=== PATIENT | male | born 1980 | race Caucasian/White ===

== ENCOUNTER 2017-08-13 11:16 | Emergency (ER) | payer OTHER ==
[~2017-08-13] VITALS: Ht 180.3 cm; Wt 107.0 kg
[~2017-08-13 11:16] MED LIST: Benztropine PO; CLON0.5T PO; DOCU100C15 PO; HALO20TA PO; OLAN10TA PO; PARO30TA2 PO
[2017-08-13 11:40] VITALS: BP 130/67; PULSE 82; RESP 16; TEMP 98.8; O2SAT 95
--- NOTE | 2017-08-13 12:14 | PD ---
HPI Chief Complaint: Psychiatric Symptoms Time Seen by Provider: 12:05 Travel History International Travel<30 days: No Contact w/Intl Traveler<30days: No Traveled to known affect area: No History of Present Illness HPI 37-year-old male presents voluntarily requesting psychiatric evaluation. He reports that for the past few hours she has had passive homicidal thoughts. He reports that he has been upset because his mother moved to [place] a few months ago. He denies any suicidal ideation, auditory or visual hallucination, drug or alcohol use. symptoms are moderate, aggravated by social stressors. No alleviating factors.. According to chart review the patient has a history of schizophrenia. He was admitted psychiatrically on July 24. He has no other complaints at this time. [facility] Past Medical History Asthma: No Anxiety: Yes Depression: No Cancer: No Cardiovascular Problems: No COPD: No Developmental Delay: Yes Diabetes: No Headaches: No Psychiatric: Yes (Schizophrenia) Schizophrenia: Yes Seizures: No Social History Alcohol Use: No Tobacco Use: Yes (3PKS/DAY) Substance Use: No Allergies-Medications (Allergen,Severity, Reaction): Coded Allergies: albuterol (Unverified Allergy, Severe, Hives, 08/13/17) bupropion (Verified Allergy, Intermediate, hives, 08/13/17) Reported Meds & Prescriptions Reported Meds & Active Scripts Active Haloperidol 20 Mg Tab 20 Mg PO 2 PO BID Olanzapine 10 Mg Tab 10 Mg PO HS [Benztropine] 1 MG Tab 2 Mg PO Q12HR 15 Days Paroxetine (Paroxetine HCl) 30 Mg Tab 60 Mg PO DAILY Clonazepam 0.5 Mg Tab 0.5 Mg PO TID Reported Docusate Sodium 100 Mg Cap 100 Mg PO DAILY Review of Systems Except as stated in HPI: all other systems reviewed are Neg Physical Exam Narrative GENERAL: Well-developed well-nourished male no acute distress SKIN: Warm and dry. HEAD: Atraumatic. Normocephalic. EYES: Pupils equal and round. No scleral icterus. No injection or drainage. ENT: No nasal bleeding or discharge. Mucous membranes pink and moist. NECK: Trachea midline. No JVD. CARDIOVASCULAR: Regular rate and rhythm. No murmur appreciated. RESPIRATORY: No accessory muscle use. Clear to auscultation. Breath sounds equal bilaterally. GASTROINTESTINAL: Abdomen soft, non-tender, nondistended. Hepatic and splenic margins not palpable. MUSCULOSKELETAL: No obvious deformities. No clubbing. No cyanosis. No edema. NEUROLOGICAL: Awake and alert. No obvious cranial nerve deficits. Motor grossly within normal limits. Normal speech. PSYCHIATRIC: Appropriate mood and affect; insight and judgment normal. Data Data Last Documented VS Vital Signs Date Time Temp Pulse Resp B/P (MAP) Pulse Ox O2 Delivery O2 Flow Rate FiO2 08/13/17 15:56 77 20 135/75 (95) 96 Room Air 08/13/17 11:40 98.8 Orders Orders Psych Screen (08/13/17 12:11) Drug Screen, Random Urine (08/13/17 12:11) Diet Regular Basic (08/13/17 Lunch) Diet Regular Basic (08/13/17 Dinner) Labs Laboratory Tests Test 08/13/17 14:45 Urine Opiates Screen NEG Urine Barbiturates Screen NEG Urine Amphetamines Screen NEG Urine Benzodiazepines Screen NEG Urine Cocaine Screen NEG Urine Cannabinoids Screen NEG MDM Medical Decision Making Medical Screen Exam Complete: Yes Emergency Medical Condition: Yes Medical Record Reviewed: Yes Differential Diagnosis Adjustment reaction, schizophrenia, schizoaffective disorder, acute psychosis, substance-induced mood disorder Narrative Course Mental health screening discussed with the patient. Psychiatric screen ordered. I reviewed his lab work from early July. CMP was unremarkable, TSH within normal limits, drug screen normal, CBC unremarkable. The patient is medically cleared. Cleared by psychiatry. Diagnosis Primary Impression: Medical clearance for psychiatric admission Jonathan Harden August 13, 2017 12:14
[2017-08-13 15:56] VITALS: BP 135/75; PULSE 77; RESP 20; O2SAT 96
== END 2017-08-13 17:30 | disposition home or self-care (01) ==
LOC: NEPJ 11:16
DX: R45.850 Homicidal ideations (principal); F20.9 Schizophrenia, unspecified; F17.200 Nicotine dependence, unspecified, uncomplicated; Z79.899 Other long term (current) drug therapy
CPT/HCPCS: 80307; 99283

== ENCOUNTER 2017-08-16 14:10 | Emergency (ER) | payer OTHER ==
[~2017-08-16] VITALS: Ht 180.3 cm; Wt 104.0 kg
[2017-08-16 14:32] VITALS: BP 126/80; PULSE 86; RESP 22; TEMP 98.1; O2SAT 96
[2017-08-16 17:42] VITALS: BP 125/66; PULSE 92; RESP 16; TEMP 98.7; O2SAT 97
[2017-08-16] MEDS: HALOPERIDOL 10 MG TAB PO SCH (20:10)
[2017-08-16] MEDS: BENZTROPINE MESYLATE 2 MG TAB PO SCH (20:10)
--- NOTE | 2017-08-16 20:19 | PD ---
HPI Chief Complaint: Suicide Ideation/Attempt Time Seen by Provider: 19:30 Travel History International Travel<30 days: No Contact w/Intl Traveler<30days: No Traveled to known affect area: No History of Present Illness HPI 37-year-old white male with a history of schizophrenia presents on a voluntary basis for psychological evaluation. Patient states that he lives in an [place]. He does not feel comfortable living there. He does not feel safe anymore. He states that he feels he needs a medication adjustment. He reports that he has been compliant with his medications. He denies any alcohol or drugs. He denies any suicidal or homicidal ideation. He states that he feels that he needs to speak to someone. He denies any other medical complaints. He denies any fever chills. No chest pain or shortness of breath. No nausea vomiting. No abdominal pain or urinary symptoms. The patient is requesting a nicotine patch. He states that he smokes 2 packs a day. PFSH Past Medical History AAA: No ADD: No ADHD: No Alzheimer's Disease: No Anemia: No Arthritis: No Asthma: No Atrial Fibrillation: No Autoimmune Disease: No Blood Disorders: No Bipolar Disorder: Yes Anxiety: Yes Depression: No Heart Rhythm Problems: No Cancer: No Cardiomyopathy: No Cardiovascular Problems: No Cerebral Palsy: No High Cholesterol: No Chemotherapy: No Chest Pain: No Congestive Heart Failure: No Cirrhosis: No COPD: No Cerebrovascular Accident: No Coronary Artery Disease: No Cystic Fibrosis: No Dementia: No Developmental Delay: No Diabetes: No Patient Takes Glucophage: No Dialysis: No Diverticulitis: No Deep Vein Thrombosis: No Endocrine: No Fibromyalgia: No Gastrointestinal Disorders: No Genetic Disorder: No GERD: No Glaucoma: No Gout: No Genitourinary: No Headaches: No Hepatitis: No Hiatal Hernia: No Heparin Induced Thrombocytopen: No Herniated Disk: No Hypertension: No Immune Disorder: No Inguinal Hernia: No Implanted Vascular Access Dvce: No Insomnia: No Kidney Stones: No Medical other: No Musculoskeletal: No Neurologic: No Parkinson's Disease: No Psychiatric: No Reproductive: No Respiratory: No Resp. Syncytial Virus (RSV): No Integumentary: No Immunizations Current: No Migraines: No Myocardial Infarction: No Pancreatitis: No Pneumonia: No Radiation Therapy: No Renal Failure: No Schizophrenia: No Seizures: No Shingles: No Sickle Cell Disease: No Sleep Apnea: No Thyroid Disease: No Triglycerides - High: No Ulcer: No Tetanus Vaccination: > 5 Years Influenza Vaccination: Yes Past Surgical History Surgical History: No Previous Surgery AICD: No Arteriovenous Shunt: No Insulin Pump: No Pacemaker: No Family History Family Breast Cancer: No Family Myocardial Infarction: No Family Hypercholesterolemia: No Social History Alcohol Use: No Tobacco Use: Yes Substance Use: No Allergies-Medications (Allergen,Severity, Reaction): Coded Allergies: albuterol (Unverified Allergy, Severe, Hives, 08/13/17) bupropion (Verified Allergy, Intermediate, hives, 08/13/17) Reported Meds & Prescriptions Reported Meds & Active Scripts Active Haloperidol 20 Mg Tab 20 Mg PO 2 PO BID Olanzapine 10 Mg Tab 10 Mg PO HS [Benztropine] 1 MG Tab 2 Mg PO Q12HR 15 Days Paroxetine (Paroxetine HCl) 30 Mg Tab 60 Mg PO DAILY Clonazepam 0.5 Mg Tab 0.5 Mg PO TID Reported Docusate Sodium 100 Mg Cap 100 Mg PO DAILY Review of Systems General / Constitutional: No: Fever Eyes: No: Visual changes HENT: No: Headaches Cardiovascular: No: Chest Pain or Discomfort Respiratory: No: Shortness of Breath Gastrointestinal: No: Abdominal Pain Genitourinary: No: Dysuria Musculoskeletal: No: Pain Skin: No Rash Neurologic: No: Weakness Psychiatric: Positive: Mood Disorder, No: Anxiety, Depression, Suicidal Ideations, Disorder of Thought (Denies any hallucinations.), Substance Abuse, Homicidal Ideation Endocrine: No: Polydipsia Hematologic/Lymphatic: No: Easy Bruising Physical Exam Narrative GENERAL: Well-nourished, well-developed patient. SKIN: Warm and dry. HEAD: Normocephalic and atraumatic. EYES: No scleral icterus. No injection or drainage. ENT: No nasal drainage noted. Mucous membranes pink. Airway patent. NECK: Supple, trachea midline. Moves head freely without obvious discomfort. CARDIOVASCULAR: Regular rate and rhythm without murmurs, gallops, or rubs. RESPIRATORY: Breath sounds equal bilaterally. No accessory muscle use. GASTROINTESTINAL: Abdomen soft, non-tender, nondistended. EXTREMITIES: No cyanosis or edema. BACK: Nontender without obvious deformity. No CVA tenderness. NEURO: Patient is alert and oriented. no sensorimotor deficits. Nonfocal. Normal speech. PSYCH: No delusions. No auditory or visual hallucinations. Data Data Last Documented VS Vital Signs Date Time Temp Pulse Resp B/P (MAP) Pulse Ox O2 Delivery O2 Flow Rate FiO2 08/16/17 17:42 98.7 92 16 125/66 (85) 97 Room Air Orders Orders Diet Regular Basic (08/16/17 Dinner) Olanzapine (Zyprexa) (08/16/17 21:00) Haloperidol (Haldol) (08/16/17 21:00) Benztropine (Cogentin) (08/16/17 21:00) Psych Screen (08/16/17 19:30) MDM Medical Decision Making Medical Screen Exam Complete: Yes Emergency Medical Condition: Yes Medical Record Reviewed: Yes Differential Diagnosis MDM: High Differential diagnoses: Schizophrenia, schizoaffective disorder, bipolar, anxiety, depression, adjustment reaction, mood disorder NOS, ODD, depressive disorder NOS, dementia, dementia with agitation, psychosis NOS, substance induced mood disorder, DMDD, Asperger syndrome, infection,electrolyte abnormality, malingering. Narrative Course Mental health screening discussed with the patient. Psychiatric screen ordered. I reviewed the patient's medical record. He has been here multiple times in the past year. His laboratory testing including CBC, chemistry, tox screen, and EtOH have always been normal. He was just seen in the ER within the last 2- 3 days. I do not believe any laboratory testing is indicated for medical clearance today. Patient denies any suicidal homicidal ideation. Denies any toxic ingestions. Patient merely states that he feels unsafe at his [facility]. He states that he would like a medication adjustment. The patient is medically cleared. This is medical clearance for psychiatric admission Diagnosis Primary Impression: Medical clearance for psychiatric admission Condition: Nile Garcia Aug 16, 2017 20:19
[2017-08-16] MEDS ORDERED: OLANZapine 10 MG TAB PO SCH (21:00)
[2017-08-16 22:16] VITALS: BP 106/51; PULSE 78; RESP 18; TEMP 98.6; O2SAT 96
[2017-08-16] MEDS ORDERED: NICOTINE 21 MG/24 HR PATCH T-DERMAL ONE (23:45)
[2017-08-17 03:09] VITALS: BP 114/82; PULSE 69; RESP 20; TEMP 97.8; O2SAT 98
[2017-08-17 07:00] VITALS: BP 119/57; PULSE 71; RESP 20; TEMP 97.9; O2SAT 94
[2017-08-17] MEDS: HALOPERIDOL 10 MG TAB PO SCH (09:54)
[2017-08-17] MEDS: BENZTROPINE MESYLATE 2 MG TAB PO SCH (09:54)
[2017-08-17 10:00] VITALS: BP 128/86; PULSE 73; RESP 16; TEMP 97.5; O2SAT 96
--- NOTE | 2017-08-17 14:08 | PD ---
History of Present Illness Chief Complaint: Suicide Ideation/Attempt Time Seen by Provider: 13:30 Travel History International Travel<30 Days: No Contact w/Intl Traveler<30days: No Known affected area: No Legal Status Legal Status: Voluntary History of Present Illness: Patient is a 38 y/o male, single, no children who has a history of schizoaffective disorder who presents to the emergency department on a voluntary basis for psychological evaluation. He states , " I don't think my haldol is strong enough." He states he hears voices all the time and they have not changed. He denies any visual hallucinations. He is childlike and states , " I like coming to the ED, I feel safe here." He is currently in [facility]. Chart reviewed and patient discussed with YULI Modi. Patient is in Room 107 eating lunch. He is well kept and friendly. He has a limited fund of knowledge. He is childlike. Easily redirected. He speaks with a normal tone and volume. Gait is steady. He is shy and will avoid eye contact at times. His insight and judgement are good. He denies any suicidal or homicidal ideations. He is cooperative and preoccupied with his Haldol. He was recently seen at [facility] and referred to [facility] for follow up. Facility will be advised that they can arrange for him to go to [facility] or they may follow up with their consulting psychiatric team for adjustment in his medications. He is currently stable and can be transported back to his residence. Dx: Schizoaffective Disorder , schizophrenia type. PFSH Past Medical History AAA: No ADD: No ADHD: No Alzheimer's Disease: No Anemia: No Arthritis: No Asthma: No Atrial Fibrillation: No Autoimmune Disease: No Blood Disorders: No Bipolar Disorder: Yes Anxiety: Yes Depression: No Heart Rhythm Problems: No Cancer: No Cardiomyopathy: No Cardiovascular Problems: No Cerebral Palsy: No High Cholesterol: No Chemotherapy: No Chest Pain: No Congestive Heart Failure: No Cirrhosis: No COPD: No Cerebrovascular Accident: No Coronary Artery Disease: No Cystic Fibrosis: No Dementia: No Developmental Delay: No Diabetes: No Patient Takes Glucophage: No Dialysis: No Diverticulitis: No Deep Vein Thrombosis: No Endocrine: No Fibromyalgia: No Gastrointestinal Disorders: No Genetic Disorder: No GERD: No Glaucoma: No Gout: No Genitourinary: No Headaches: No Hepatitis: No Hiatal Hernia: No Heparin Induced Thrombocytopen: No Herniated Disk: No Hypertension: No Immune Disorder: No Inguinal Hernia: No Implanted Vascular Access Dvce: No Insomnia: No Kidney Stones: No Medical other: No Musculoskeletal: No Neurologic: No Parkinson's Disease: No Psychiatric: No Reproductive: No Respiratory: No Resp. Syncytial Virus (RSV): No Integumentary: No Immunizations Current: No Migraines: No Myocardial Infarction: No Pancreatitis: No Pneumonia: No Radiation Therapy: No Renal Failure: No Schizophrenia: No Seizures: No Shingles: No Sickle Cell Disease: No Sleep Apnea: No Thyroid Disease: No Triglycerides - High: No Ulcer: No Tetanus Vaccination: > 5 Years Influenza Vaccination: Yes Past Surgical History Surgical History: No Previous Surgery AICD: No Arteriovenous Shunt: No Insulin Pump: No Pacemaker: No Psychiatric History Psychiatric History half-way history of schizoaffective disorder, schizophrenia type. Hx Psychiatric Treatment: Schizophrenia, Bipolar disorder, Depression History of Inpatient Treatment: Yes Social History Hx Alcohol Use: No Hx Tobacco Use: Yes Hx Substance Use: No Substance Use Type: Nicotine/Cigarettes Hx of Substance Use Treatment: No Allergies-Medications (Allergen,Severity, Reaction): Coded Allergies: albuterol (Unverified Allergy, Severe, Hives, 08/13/17) bupropion (Verified Allergy, Intermediate, hives, 08/13/17) Reported Meds & Prescriptions Reported Meds & Active Scripts Active Haloperidol 20 Mg Tab 20 Mg PO 2 PO BID Olanzapine 10 Mg Tab 10 Mg PO HS [Benztropine] 1 MG Tab 2 Mg PO Q12HR 15 Days Paroxetine (Paroxetine HCl) 30 Mg Tab 60 Mg PO DAILY Clonazepam 0.5 Mg Tab 0.5 Mg PO TID Reported Docusate Sodium 100 Mg Cap 100 Mg PO DAILY Mental Status Examination Appearance: Appropriate Consciousness: Alert Orientation: x4 Motor Activity: Normal gait Speech: Unremarkable Language: Adequate Fund of Knowledge: Adequate Attention and Concentration: Adequate Memory: Impaired Mood: Appropriate Affect: Euthymic Thought Process & Associations: Other (need direction, childlike ) Thought Content: Hallucinations (continue to hear some voices, but states they do not bother him) Hallucination Type: Auditory Delusion Type: None Suicidal Ideation: No Suicidal Plan: No Suicidal Intention: No Homicidal Ideation: No Homicidal Plan: No Homicidal Intention: No Insight: Adequate Judgment: Adequate [facility] Medical Decision Making Medical Record Reviewed: Yes Assessment/Plan Patient is a 37 y.o male who has been to [facility] in the past. He is here on a voluntary basis to discuss his Haldol. He continues to hear voices but states that they do not bother him. He has no visual hallucinations. He does not seem paranoid or illicit any illusions. He is stable and will be returned to his facility. The facility may take him to [facility] for medication management or they may utilize their psychiatric team to provide him continuous care of his mental illness. Patient is at low risk for self harm or harm of others. He is here today to talk about his Haldol. Orders Orders Diet Regular Basic (08/16/17 Dinner) Olanzapine (Zyprexa) (08/16/17 21:00) Haloperidol (Haldol) (08/16/17 21:00) Benztropine (Cogentin) (08/16/17 21:00) Psych Screen (08/16/17 19:30) Drug Screen, Random Urine (08/16/17 22:14) Nicotine 21 Mg Patch.24 Hr (Habitrol 21 (08/16/17 23:45) Diet Regular Basic (08/17/17 Breakfast) Diet Regular Basic (08/17/17 Lunch) Results Vital Signs Date Time Temp Pulse Resp B/P (MAP) Pulse Ox O2 Delivery O2 Flow Rate FiO2 08/17/17 10:00 97.5 73 16 128/86 (100) 96 Room Air 08/17/17 07:00 97.9 71 20 119/57 (77) 94 Room Air 08/17/17 03:09 97.8 69 20 114/82 (93) 98 Room Air 08/16/17 22:16 98.6 78 18 106/51 (69) 96 Room Air 08/16/17 17:42 98.7 92 16 125/66 (85) 97 Room Air 08/16/17 14:32 98.1 86 22 126/80 (95) 96 Laboratory Tests Test 08/16/17 18:35 Urine Opiates Screen NEG Urine Barbiturates Screen NEG Urine Amphetamines Screen NEG Urine Benzodiazepines Screen NEG Urine Cocaine Screen NEG Urine Cannabinoids Screen NEG Diagnosis Primary Impression: Schizo-affective schizophrenia Disposition: 01 DISCHARGE HOME Condition: Stable Latasha Vora Aug 17, 2017 14:08
--- NOTE | 2017-08-17 14:23 | PD ---
Physical Exam Date Seen by Provider: Aug 17, 2017 Time Seen by Provider: 14:21 Narrative 37-year-old male the presents to the ED for evaluation of voluntary psych eval. Patient was evaluated by previous provider and psychiatric team and deemed to be dischargeable. Patient had blood work that was essentially unremarkable. He is a frequent visitor to the hospital secondary to schizophrenia. Voices no complaints. Patient will be discharged back to his long term. Data Data Last Documented VS Vital Signs Date Time Temp Pulse Resp B/P (MAP) Pulse Ox O2 Delivery O2 Flow Rate FiO2 08/17/17 10:00 97.5 73 16 128/86 (100) 96 Room Air Orders Orders Diet Regular Basic (08/16/17 Dinner) Olanzapine (Zyprexa) (08/16/17 21:00) Haloperidol (Haldol) (08/16/17 21:00) Benztropine (Cogentin) (08/16/17 21:00) Psych Screen (08/16/17 19:30) Drug Screen, Random Urine (08/16/17 22:14) Nicotine 21 Mg Patch.24 Hr (Habitrol 21 (08/16/17 23:45) Diet Regular Basic (08/17/17 Breakfast) Diet Regular Basic (08/17/17 Lunch) Ed Discharge Order (08/17/17 14:20) Labs Laboratory Tests Test 08/16/17 18:35 Urine Opiates Screen NEG Urine Barbiturates Screen NEG Urine Amphetamines Screen NEG Urine Benzodiazepines Screen NEG Urine Cocaine Screen NEG Urine Cannabinoids Screen NEG MDM Medical Record Reviewed: Yes Supervised Visit with MICHELLE: No Differential Diagnosis Depression versus suicidal ideation versus anxiety versus adjustment disorder versus mood disorder versus bipolar disorder versus schizophrenia versus paranoid disorder versus psychosis versus substance abuse versus alcohol abuse versus alcohol induced psychosis versus homicidality addition versus cutting versus personality disorder Narrative Course 7-year-old male the presents to the ED for evaluation of voluntary psych eval. Patient was evaluated by previous provider and psychiatric team and deemed to be dischargeable. Patient had blood work that was essentially unremarkable. He is a frequent visitor to the hospital secondary to schizophrenia. Voices no complaints. Patient will be discharged back to his long term. Follow-up with psychiatrist. See ED if worsening symptoms. Diagnosis Primary Impression: Schizo-affective schizophrenia Patient Instructions: General Instructions Disposition: 01 DISCHARGE HOME Condition: Stable Britton Rangel Aug 17, 2017 14:23
[2017-08-18] MEDS ORDERED: TRAZ1TAB14 PO (00:51)
== END 2017-08-17 16:53 | disposition home or self-care (01) ==
LOC: NEPJ 14:10
DX: F25.9 Schizoaffective disorder, unspecified (principal); F31.9 Bipolar disorder, unspecified; F41.9 Anxiety disorder, unspecified; Z79.899 Other long term (current) drug therapy; Z88.8 Allergy status to other drugs, medicaments and biological substances; Z87.891 Personal history of nicotine dependence; Z72.0 Tobacco use
CPT/HCPCS: 80307; 99283

== ENCOUNTER 2017-08-17 18:24 | Emergency (ER) | payer OTHER ==
[~2017-08-17] VITALS: Ht 180.3 cm; Wt 110.0 kg
[2017-08-17 18:30] VITALS: BP 146/78; PULSE 104; RESP 16; TEMP 99.1; O2SAT 94
--- NOTE | 2017-08-17 19:19 | PD ---
HPI Chief Complaint: Suicide Ideation/Attempt Time Seen by Provider: 18:37 Travel History International Travel<30 days: No Contact w/Intl Traveler<30days: No Traveled to known affect area: No History of Present Illness HPI 37-year-old male presents to the emergency department with complaints of having suicidal thoughts. He was just discharged from our ER psychiatry department today. I was told that he was provided transportation back to his [place]. On my examination the patient he states that "I am upset about medication.". He says he stopped taking it because he is unhappy where he is living. He says he does not feel safe where he is living. He says there is too much arguing and drugs. He reports suicidal ideation. Says he does not have a plan "yet." Denies homicidal ideations. Denies history of suicidal attempts. Says he is having visual and auditory hallucinations. Says "I am seeing bad thoughts." Says the voices are telling him to hurt people. He denies alcohol, drug use, tobacco use. Aggravated by his living situation and feeling unsafe for his living. No known relieving factors. Symptoms are moderate to severe in severity. Duration chronic. Onset unknown. History of schizoaffective disorder. History of asthma. Allergies to albuterol. No primary care provider. His medications are managed by the FACT team. Has no other medical complaints. No other modifying factors or associated signs and symptoms. PFSH Past Medical History AAA: No ADD: No ADHD: No Alzheimer's Disease: No Anemia: No Arthritis: No Asthma: No Atrial Fibrillation: No Autoimmune Disease: No Blood Disorders: No Bipolar Disorder: Yes Anxiety: Yes Depression: No Heart Rhythm Problems: No Cancer: No Cardiomyopathy: No Cardiovascular Problems: No Cerebral Palsy: No High Cholesterol: No Chemotherapy: No Chest Pain: No Congestive Heart Failure: No Cirrhosis: No COPD: No Cerebrovascular Accident: No Coronary Artery Disease: No Cystic Fibrosis: No Dementia: No Developmental Delay: No Diabetes: No Dialysis: No Diminished Hearing: No Diverticulitis: No Deep Vein Thrombosis: No Endocrine: No Fibromyalgia: No Gastrointestinal Disorders: No Genetic Disorder: No GERD: No Glaucoma: No Gout: No Genitourinary: No Headaches: No Hepatitis: No Hiatal Hernia: No Heparin Induced Thrombocytopen: No Herniated Disk: No Hypertension: No Immune Disorder: No Inguinal Hernia: No Implanted Vascular Access Dvce: No Insomnia: No Kidney Stones: No Musculoskeletal: No Neurologic: No Parkinson's Disease: No Psychiatric: Yes (SCHITZOAFFECTIVE D/O) Reproductive: No Respiratory: No Resp. Syncytial Virus (RSV): No Integumentary: No Immunizations Current: No Migraines: No Myocardial Infarction: No Pancreatitis: No Pneumonia: No Radiation Therapy: No Renal Failure: No Schizophrenia: No Seizures: No Shingles: No Sickle Cell Disease: No Sleep Apnea: No Thyroid Disease: No Triglycerides - High: No Ulcer: No Past Surgical History Surgical History: No Previous Surgery AICD: No Arteriovenous Shunt: No Insulin Pump: No Pacemaker: No Family History Family Hypercholesterolemia: No Social History Alcohol Use: No Tobacco Use: Yes (3 PPD) Substance Use: No Allergies-Medications (Allergen,Severity, Reaction): Coded Allergies: albuterol (Unverified Allergy, Severe, Hives, 08/17/17) bupropion (Verified Allergy, Intermediate, hives, 08/17/17) Reported Meds & Prescriptions Reported Meds & Active Scripts Active Haloperidol 20 Mg Tab 20 Mg PO 2 PO BID Olanzapine 10 Mg Tab 10 Mg PO HS [Benztropine] 1 MG Tab 2 Mg PO Q12HR 15 Days Paroxetine (Paroxetine HCl) 30 Mg Tab 60 Mg PO DAILY Clonazepam 0.5 Mg Tab 0.5 Mg PO TID Reported Docusate Sodium 100 Mg Cap 100 Mg PO DAILY Review of Systems Except as stated in HPI: all other systems reviewed are Neg Physical Exam Narrative GENERAL: Well-nourished, well-developed male patient, in no acute distress SKIN: Warm and dry. HEAD: Atraumatic. Normocephalic. EYES: Pupils equal and round. ENT: Mucosa pink and moist. NECK: Supple. Trachea midline. CARDIOVASCULAR: Regular rate and rhythm. No murmur appreciated. RESPIRATORY: No accessory muscle use. Clear to auscultation. Breath sounds equal bilaterally. GASTROINTESTINAL: Abdomen soft, non-tender, nondistended. Hepatic and splenic margins not palpable. Bowel sounds are active 4 quadrants. MUSCULOSKELETAL: No obvious deformities. No clubbing. No cyanosis. No edema. NEUROLOGICAL: Awake and alert. Oriented 3. No obvious cranial nerve deficits. Motor grossly within normal limits. Normal speech. Moves all extremities. 5/5 strength to all extremities. PSYCHIATRIC: No delusional thought processes. No hallucinations. Data Data Last Documented VS Vital Signs Date Time Temp Pulse Resp B/P (MAP) Pulse Ox O2 Delivery O2 Flow Rate FiO2 08/17/17 18:30 99.1 104 16 146/78 (100) 94 Orders Orders Psych Screen (08/17/17 19:19) MDM Medical Decision Making Medical Screen Exam Complete: Yes Emergency Medical Condition: Yes Medical Record Reviewed: Yes Differential Diagnosis Suicidal ideation, malingering, schizoaffective disorder, medical clearance for psychiatric admission Narrative Course Patient presents voluntarily. He was discharged from our ER psychiatry unit today. He presents back having suicidal ideation and saying that he does not feel safe where he is living. He lives in an [place]. Physical examination and vital signs are essentially unremarkable. Patient has no medical complaints to report. Psych screen has been ordered. Diagnosis Primary Impression: Medical clearance for psychiatric admission Condition: Stable Edilma Machuca Aug 17, 2017 19:19
[2017-08-18] MEDS ORDERED: TRAZ1TAB14 PO (00:51)
[2017-08-18] MEDS ORDERED: OLANZapine 10 MG TAB PO ONE (01:00)
[2017-08-18] MEDS ORDERED: clonazePAM 0.5 MG TAB PO ONE ×2 (01:00→09:15)
[2017-08-18] MEDS ORDERED: traZODone HCL 50 MG TAB PO ONE (01:00)
[2017-08-18 07:28] VITALS: BP 137/89; PULSE 94; RESP 17; TEMP 98.9; O2SAT 98
[2017-08-18] MEDS ORDERED: HALOPERIDOL 10 MG TAB PO ONE (09:15)
[2017-08-18] MEDS ORDERED: PARoxetine HCL 20 MG TAB PO ONE (09:15)
--- NOTE | 2017-08-18 12:59 | PD ---
Physical Exam Time Seen by Provider: 12:58 Narrative MUMTAZ Joseph has evaluated patient and cleared the patient for discharge. Data Data Last Documented VS Vital Signs Date Time Temp Pulse Resp B/P (MAP) Pulse Ox O2 Delivery O2 Flow Rate FiO2 08/18/17 07:28 98.9 94 17 137/89 (105) 98 Room Air Orders Orders Psych Screen (08/17/17 19:19) Trazodone (Desyrel) (08/18/17 01:00) Clonazepam (Klonopin) (08/18/17 01:00) Olanzapine (Zyprexa) (08/18/17 01:00) Diet Regular Basic (08/18/17 Breakfast) Clonazepam (Klonopin) (08/18/17 09:15) Haloperidol (Haldol) (08/18/17 09:15) Paroxetine (Paxil) (08/18/17 09:15) Diet Regular Basic (08/18/17 Lunch) Ed Discharge Order (08/18/17 12:59) [facility] Supervised Visit with MICHELLE: No Narrative Course MUMTAZ Joseph has evaluated patient and cleared the patient for discharge. The patient will be provided transportation back to his [facility] and he will follow-up outpatient with his psychiatrist. Patient contracts safety. Denies suicidal or homicidal ideations. Patient will be provided community resource packet to /[facility] for follow-up. Has friends and family for support. Patient was medically cleared by alternate provider prior to psych screening. Patient has been evaluated by psychiatry and and is now cleared for discharge. Diagnosis Primary Impression: Schizo-affective schizophrenia Referrals: [facility] (Out patient) [facility] Primary Care Physician Psychiatrist [place] [facility] Patient Instructions: General Instructions, Schizoaffective Disorder (ED), Schizophrenia (ED) Additional Instruction: Contract safety to your self and others Follow-up with psychiatry Follow-up with primary care provider Follow-up with Musa Birch Return to the emergency department immediately with worsening of symptoms Med/Other Pt SpecificInfo: No Change to Meds, No Meds Exist/No RX given Disposition: 01 DISCHARGE HOME Condition: Stable Edilma Machuca Aug 18, 2017 12:59
--- NOTE | 2017-08-18 13:07 | PD ---
History of Present Illness Chief Complaint: Suicide Ideation/Attempt Time Seen by Provider: 12:20 Travel History International Travel<30 Days: No Contact w/Intl Traveler<30days: No Known affected area: No History of Present Illness: Patient is a 38 y/o male, single, no children who has a history of schizoaffective disorder who presents to the emergency department on a voluntary basis for psychological evaluation. He states , " I don't like living at [facility] and I want a different place to live." Chart reviewed and patient discussed with YULI Haas. Patient is in room D41 watching television. He is childlike and easily re-directed. He has a limited fund of knowledge. He speaks with a normal tone and volume. Gait is steady. He is shy and will avoid eye contact at times. His insight and judgement are good. He denies any suicidal or homicidal ideations. He is cooperative and preoccupied with finding new housing. He was at [facility] yesterday with a similar concern and stating he wanted his Haldol increased. Patient is walking from [facility] to the hospital asking for a new place to live. I explained to patient that he would need to speak to the Client Program Manager at his [facility] for assistance with his concerns about the facility and alternative placement. He agreed and asked to be discharged. Dx: Schizoaffective Disorder , schizophrenia type. PFSH Past Medical History AAA: No ADD: No ADHD: No Alzheimer's Disease: No Anemia: No Arthritis: No Asthma: No Atrial Fibrillation: No Autoimmune Disease: No Blood Disorders: No Bipolar Disorder: Yes Anxiety: Yes Depression: No Heart Rhythm Problems: No Cancer: No Cardiomyopathy: No Cardiovascular Problems: No Cerebral Palsy: No High Cholesterol: No Chemotherapy: No Chest Pain: No Congestive Heart Failure: No Cirrhosis: No COPD: No Cerebrovascular Accident: No Coronary Artery Disease: No Cystic Fibrosis: No Dementia: No Developmental Delay: No Diabetes: No Dialysis: No Diminished Hearing: No Diverticulitis: No Deep Vein Thrombosis: No Endocrine: No Fibromyalgia: No Gastrointestinal Disorders: No Genetic Disorder: No GERD: No Glaucoma: No Gout: No Genitourinary: No Headaches: No Hepatitis: No Hiatal Hernia: No Heparin Induced Thrombocytopen: No Herniated Disk: No Hypertension: No Immune Disorder: No Inguinal Hernia: No Implanted Vascular Access Dvce: No Insomnia: No Kidney Stones: No Musculoskeletal: No Neurologic: No Parkinson's Disease: No Psychiatric: Yes (SCHITZOAFFECTIVE D/O) Reproductive: No Respiratory: No Resp. Syncytial Virus (RSV): No Integumentary: No Immunizations Current: No Migraines: No Myocardial Infarction: No Pancreatitis: No Pneumonia: No Radiation Therapy: No Renal Failure: No Schizophrenia: No Seizures: No Shingles: No Sickle Cell Disease: No Sleep Apnea: No Thyroid Disease: No Triglycerides - High: No Ulcer: No Past Surgical History Surgical History: No Previous Surgery AICD: No Arteriovenous Shunt: No Insulin Pump: No Pacemaker: No Psychiatric History Psychiatric History Under treatment for Schioaffective disorder. Hx Psychiatric Treatment: Schizophrenia, Bipolar disorder, Depression History of Inpatient Treatment: Yes Social History Hx Alcohol Use: No Hx Tobacco Use: Yes (3 PPD) Hx Substance Use: No Substance Use Type: Nicotine/Cigarettes Hx of Substance Use Treatment: No Allergies-Medications (Allergen,Severity, Reaction): Coded Allergies: albuterol (Unverified Allergy, Severe, Hives, 08/17/17) bupropion (Verified Allergy, Intermediate, hives, 08/17/17) Reported Meds & Prescriptions Reported Meds & Active Scripts Active Haloperidol 20 Mg Tab 20 Mg PO 2 PO BID Olanzapine 10 Mg Tab 10 Mg PO HS [Benztropine] 1 MG Tab 2 Mg PO Q12HR 15 Days Paroxetine (Paroxetine HCl) 30 Mg Tab 60 Mg PO DAILY Clonazepam 0.5 Mg Tab 0.5 Mg PO TID Reported Trazodone (Trazodone HCl) 150 Mg Tablet 150 Mg PO HS Docusate Sodium 100 Mg Cap 100 Mg PO DAILY Mental Status Examination Appearance: Appropriate Consciousness: Alert Orientation: Person Motor Activity: Normal gait Speech: Unremarkable Language: Adequate Fund of Knowledge: Adequate (childlike, intellectual disability) Memory: Recent (intact) Mood: Appropriate Affect: Euthymic Thought Process & Associations: Intact Thought Content: Appropriate Hallucination Type: None Delusion Type: None Suicidal Ideation: No Suicidal Plan: No Suicidal Intention: No Homicidal Ideation: No Homicidal Plan: No Homicidal Intention: No Insight: Adequate Judgment: Adequate [facility] Medical Decision Making Medical Record Reviewed: Yes Assessment/Plan Patient is a resident of [facility]. He was here yesterday and returned today asking to be moved into a new facility because he does not like [facility]. He is easily re-directed and agreed to return to [facility] to talk about his concerns about his living situation. Thank you for the consultation. Patient is currently under psychiatric care and is managed by [facility]. He does not meet admission criteria. Orders Orders Psych Screen (08/17/17 19:19) Trazodone (Desyrel) (08/18/17 01:00) Clonazepam (Klonopin) (08/18/17 01:00) Olanzapine (Zyprexa) (08/18/17 01:00) Diet Regular Basic (08/18/17 Breakfast) Clonazepam (Klonopin) (08/18/17 09:15) Haloperidol (Haldol) (08/18/17 09:15) Paroxetine (Paxil) (08/18/17 09:15) Diet Regular Basic (08/18/17 Lunch) Results Vital Signs Date Time Temp Pulse Resp B/P (MAP) Pulse Ox O2 Delivery O2 Flow Rate FiO2 08/18/17 07:28 98.9 94 17 137/89 (105) 98 Room Air 08/17/17 18:30 99.1 104 16 146/78 (100) 94 Diagnosis Primary Impression: Schizo-affective schizophrenia Disposition: 01 DISCHARGE HOME Condition: Stable Diony,Latashabenjy PANDYA Aug 18, 2017 13:07
[2017-08-19] MEDS ORDERED: PARO30TA2 PO (15:10)
[2017-08-19] MEDS ORDERED: ZOLP5TAB3 PO (15:14)
== END 2017-08-18 13:20 | disposition home or self-care (01) ==
LOC: NEPD 18:24
DX: F25.9 Schizoaffective disorder, unspecified (principal); F17.200 Nicotine dependence, unspecified, uncomplicated
CPT/HCPCS: 99283

== ENCOUNTER 2017-08-19 14:45 | Emergency (ER) | payer OTHER ==
[~2017-08-19] VITALS: Ht 180.3 cm; Wt 79.5 kg
[~2017-08-19 14:45] MED LIST changes: +TRAZ1TAB14 PO
[2017-08-19 14:55] VITALS: BP 114/59; PULSE 81; RESP 20; TEMP 98.6; O2SAT 96
[2017-08-19 14:59] VITALS: BP 114/59; PULSE 81; RESP 20; TEMP 98.6; O2SAT 96
[2017-08-19] MEDS ORDERED: PARO30TA2 PO (15:10)
[2017-08-19] MEDS ORDERED: ZOLP5TAB3 PO (15:14)
--- NOTE | 2017-08-19 18:48 | PD ---
HPI Chief Complaint: Psychiatric Symptoms Time Seen by Provider: 18:29 Travel History International Travel<30 days: No Contact w/Intl Traveler<30days: No Traveled to known affect area: No History of Present Illness HPI 37-year-old male presents to the emergency department under [place] act. Patient has been seen here multiple times in the past few days and is well-known to the emergency department and psychiatric unit. 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 Upon contacted by phone he stated that he has a mental disorder and he feels like harming himself and wanted to get help. Phong hurley has a history of mental illness and has been [place] acted in the past." He was just discharged from our ER psychiatry department 2 days ago. I saw this patient the last time he was here. Patient states he is unhappy where he is living. He does not feel safe there. He reports feeling suicidal and does not have a plan. Denies homicidal ideations. Denies history of suicidal attempts. Says he is having visual and auditory hallucinations. He denies alcohol, drug use, tobacco use. Aggravated by his living situation and feeling unsafe for his living. No known relieving factors. Symptoms are moderate to severe in severity. Duration chronic. Onset unknown. History of schizoaffective disorder. History of asthma. Allergies to albuterol. No primary care provider. His medications are managed by the FACT team. Has no other medical complaints. No other modifying factors or associated signs and symptoms. PFSH Past Medical History Hx Anticoagulant Therapy: No AAA: No ADD: No ADHD: No Alzheimer's Disease: No Anemia: No Arthritis: No Asthma: No Atrial Fibrillation: No Autoimmune Disease: No Blood Disorders: No Bipolar Disorder: Yes Anxiety: Yes Depression: No Heart Rhythm Problems: No Cancer: No Cardiomyopathy: No Cardiovascular Problems: No Cerebral Palsy: No High Cholesterol: No Chemotherapy: No Chest Pain: No Congestive Heart Failure: No Cirrhosis: No COPD: No Cerebrovascular Accident: No Coronary Artery Disease: No Cystic Fibrosis: No Dementia: No Developmental Delay: No Diabetes: No Dialysis: No Diminished Hearing: No Diverticulitis: No Deep Vein Thrombosis: No Endocrine: No Fibromyalgia: No Gastrointestinal Disorders: No Genetic Disorder: No GERD: No Glaucoma: No Gout: No Genitourinary: No Headaches: No Hepatitis: No Hiatal Hernia: No Heparin Induced Thrombocytopen: No Herniated Disk: No Hypertension: No Immune Disorder: No Inguinal Hernia: No Implanted Vascular Access Dvce: No Insomnia: No Kidney Stones: No Musculoskeletal: No Neurologic: No Parkinson's Disease: No Psychiatric: Yes (SCHITZOAFFECTIVE D/O) Reproductive: No Respiratory: No Resp. Syncytial Virus (RSV): No Integumentary: No Immunizations Current: No Migraines: No Myocardial Infarction: No Pancreatitis: No Pneumonia: No Radiation Therapy: No Renal Failure: No Schizophrenia: No Seizures: No Shingles: No Sickle Cell Disease: No Sleep Apnea: No Thyroid Disease: No Triglycerides - High: No Ulcer: No ?: Not Past Surgical History AICD: No Arteriovenous Shunt: No Hysterectomy: No Insulin Pump: No Pacemaker: No Family History Family Hypercholesterolemia: No Social History Alcohol Use: No Tobacco Use: Yes (3 PPD) Substance Use: No Allergies-Medications (Allergen,Severity, Reaction): Coded Allergies: albuterol (Unverified Allergy, Severe, Hives, 08/17/17) bupropion (Verified Allergy, Intermediate, hives, 08/17/17) Reported Meds & Prescriptions Reported Meds & Active Scripts Active Haloperidol 20 Mg Tab 20 Mg PO 2 PO BID Olanzapine 10 Mg Tab 10 Mg PO HS [Benztropine] 1 MG Tab 2 Mg PO Q12HR 15 Days Clonazepam 0.5 Mg Tab 0.5 Mg PO TID Reported Zolpidem (Zolpidem Tartrate) 5 Mg Tab 5 Mg PO HS PRN Paroxetine (Paroxetine HCl) 30 Mg Tab 30 Mg PO DAILY Docusate Sodium 100 Mg Cap 100 Mg PO DAILY Review of Systems Except as stated in HPI: all other systems reviewed are Neg Physical Exam Narrative GENERAL: Well-nourished, well-developed patient, in no acute distress SKIN: Warm and dry. HEAD: Atraumatic. Normocephalic. EYES: Pupils equal and round. ENT: Mucosa pink and moist. NECK: Supple. Trachea midline. CARDIOVASCULAR: Regular rate and rhythm. No murmur appreciated. RESPIRATORY: No accessory muscle use. Clear to auscultation. Breath sounds equal bilaterally. GASTROINTESTINAL: Abdomen soft, non-tender, nondistended. Hepatic and splenic margins not palpable. Bowel sounds are active 4 quadrants. MUSCULOSKELETAL: No obvious deformities. No clubbing. No cyanosis. No edema. NEUROLOGICAL: Awake and alert. Oriented 3. No obvious cranial nerve deficits. Motor grossly within normal limits. Normal speech. Moves all extremities. 5/5 strength to all extremities. PSYCHIATRIC: No delusional thought processes. No hallucinations. Data Data Last Documented VS Vital Signs Date Time Temp Pulse Resp B/P (MAP) Pulse Ox O2 Delivery O2 Flow Rate FiO2 08/19/17 14:59 98.6 81 20 114/59 (77) 96 Room Air Orders Orders Diet Regular Basic (08/19/17 Dinner) Complete Blood Count With Diff (08/19/17 17:38) Comprehensive Metabolic Panel (08/19/17 17:38) Thyroid Stimulating Hormone (08/19/17 17:38) Psych Screen (08/19/17 17:38) Drug Screen, Random Urine (08/19/17 17:38) Alcohol (Ethanol) (08/19/17 17:38) Salicylates (Aspirin) (08/19/17 17:38) Tylenol (Acetaminophen) (08/19/17 17:38) MDM Medical Decision Making Medical Screen Exam Complete: Yes Emergency Medical Condition: Yes Medical Record Reviewed: Yes Differential Diagnosis Medical clearance for psychiatric admission, schizoaffective disorder, schizophrenia, paranoia Narrative Course Patient presents under a Ureña act. Physical examination and vital signs are essentially unremarkable. Patient has no medical complaints to report. Psych screen has been ordered. If the laboratory results are unremarkable, the patient will be medically cleared for psychiatric evaluation and disposition. Diagnosis Primary Impression: Medical clearance for psychiatric admission Condition: Stable Edilma Machuca Aug 19, 2017 18:48
[2017-08-19 18:58] LABS: AUTOMATED NEUTROPHIL # 3.3 TH/MM3 (1.8-7.7); BASOPHIL # 0.1 TH/MM3 (0-0.2); BASOPHIL % 0.9 % (0.0-2.0); EOSINOPHIL # 0.2 TH/MM3 (0-0.4); EOSINOPHIL % 3.1 % (0.0-4.0); HEMATOCRIT 43.4 % (39.0-51.0); HEMOGLOBIN 15.2 GM/DL (13.0-17.0); LYMPH % 38.5 % (9.0-44.0); LYMPHOCYTE # 2.4 TH/MM3 (1.0-4.8); MEAN CELL VOLUME 88.6 FL (80.0-100.0); MEAN PLATELET VOLUME 6.8 FL (7.0-11.0); MONO % 5.9 % (0.0-8.0); MONOCYTE # 0.4 TH/MM3 (0-0.9); NEUT % 51.6 % (16.0-70.0); PLATELET COUNT 239 TH/MM3 (150-450); RED CELL DISTRIBUTION WIDTH 13.3 % (11.6-17.2); WHITE BLOOD COUNT 6.3 TH/MM3 (4.0-11.0)
[2017-08-19 19:29] LABS: ALBUMIN 4.2 GM/DL (3.4-5.0); ALT (GPT) 37 U/L (12-78); AST (GOT) 22 U/L (15-37); BICARBONATE 26.1 MEQ/L (21.0-32.0); BLOOD UREA NITROGEN 9 MG/DL (7-18); CALCIUM 8.8 MG/DL (8.5-10.1); CHLORIDE 101 MEQ/L (98-107); CREATININE 0.62 MG/DL (0.60-1.30); GLOMERULAR FILTRATION RATE 148 ML/MIN (>89); GLUCOSE,RANDOM 70 MG/DL (74-106); SODIUM (NA) 137 MEQ/L (136-145)
[2017-08-19 19:40] LABS: ALKALINE PHOSPHATASE 91 U/L (45-117); TOTAL BILIRUBIN ADULT 0.3 MG/DL (0.2-1.0); TOTAL PROTEIN 7.5 GM/DL (6.4-8.2)
[2017-08-19 19:43] LABS: ACETAMINOPHEN LESS THAN 2.0 MCG/ML (10.0-30.0)
[2017-08-20 06:01] VITALS: BP 98/53; PULSE 72; RESP 18; O2SAT 96
--- NOTE | 2017-08-20 10:53 | PD ---
Physical Exam Date Seen by Provider: Aug 20, 2017 Time Seen by Provider: 10:51 Narrative For full history and physical examination please see previous providers note. Data Data Last Documented VS Vital Signs Date Time Temp Pulse Resp B/P (MAP) Pulse Ox O2 Delivery O2 Flow Rate FiO2 08/20/17 06:01 72 18 98/53 (68) 96 Room Air 08/19/17 14:59 98.6 Orders Orders Diet Regular Basic (08/19/17 Dinner) Complete Blood Count With Diff (08/19/17 17:38) Comprehensive Metabolic Panel (08/19/17 17:38) Thyroid Stimulating Hormone (08/19/17 17:38) Psych Screen (08/19/17 17:38) Drug Screen, Random Urine (08/19/17 17:38) Alcohol (Ethanol) (08/19/17 17:38) Salicylates (Aspirin) (08/19/17 17:38) Tylenol (Acetaminophen) (08/19/17 17:38) Diet Regular Basic (08/20/17 Breakfast) Ed Discharge Order (08/20/17 10:50) Labs Laboratory Tests Test 08/19/17 15:02 08/19/17 15:03 White Blood Count 6.3 TH/MM3 Red Blood Count 4.90 MIL/MM3 Hemoglobin 15.2 GM/DL Hematocrit 43.4 % Mean Corpuscular Volume 88.6 FL Mean Corpuscular Hemoglobin 31.0 PG Mean Corpuscular Hemoglobin Concent 35.0 % Red Cell Distribution Width 13.3 % Platelet Count 239 TH/MM3 Mean Platelet Volume 6.8 FL Neutrophils (%) (Auto) 51.6 % Lymphocytes (%) (Auto) 38.5 % Monocytes (%) (Auto) 5.9 % Eosinophils (%) (Auto) 3.1 % Basophils (%) (Auto) 0.9 % Neutrophils # (Auto) 3.3 TH/MM3 Lymphocytes # (Auto) 2.4 TH/MM3 Monocytes # (Auto) 0.4 TH/MM3 Eosinophils # (Auto) 0.2 TH/MM3 Basophils # (Auto) 0.1 TH/MM3 CBC Comment DIFF FINAL Differential Comment Blood Urea Nitrogen 9 MG/DL Creatinine 0.62 MG/DL Random Glucose 70 MG/DL Total Protein 7.5 GM/DL Albumin 4.2 GM/DL Calcium Level 8.8 MG/DL Alkaline Phosphatase 91 U/L Aspartate Amino Transf (AST/SGOT) 22 U/L Alanine Aminotransferase (ALT/SGPT) 37 U/L Total Bilirubin 0.3 MG/DL Sodium Level 137 MEQ/L Potassium Level 3.5 MEQ/L Chloride Level 101 MEQ/L Carbon Dioxide Level 26.1 MEQ/L Anion Gap 10 MEQ/L Estimat Glomerular Filtration Rate 148 ML/MIN Thyroid Stimulating Hormone 3rd Gen 1.030 uIU/ML Salicylates Level 3.8 MG/DL Acetaminophen Level LESS THAN 2.0 MCG/ML Ethyl Alcohol Level LESS THAN 3 MG/DL Urine Opiates Screen NEG Urine Barbiturates Screen NEG Urine Amphetamines Screen NEG Urine Benzodiazepines Screen NEG Urine Cocaine Screen NEG Urine Cannabinoids Screen NEG MDM Medical Record Reviewed: Yes Supervised Visit with MICHELLE: No Narrative Course For full H&P please see previous providers note. Patient was seen and evaluated emergency department, medically cleared. He was then seen by psychiatry. Patient will be transferred to [facility] for further rehabilitation. Diagnosis Primary Impression: Bipolar disorder Qualified Codes: F31.9 - Bipolar disorder, unspecified Referrals: [facility] Behavioral Disposition: 67 DISC TO PSYCH CARE FACILITY Condition: Stable Isamar Levin [facility] Aug 20, 2017 10:53
== END 2017-08-20 11:31 ==
LOC: NEPJ 14:45
DX: F31.9 Bipolar disorder, unspecified (principal); F25.9 Schizoaffective disorder, unspecified; F17.200 Nicotine dependence, unspecified, uncomplicated; Z79.899 Other long term (current) drug therapy
CPT/HCPCS: 80053; 80307; 84443; 85025; 99285

== ENCOUNTER 2017-08-20 12:44 | Emergency (ER) | payer OTHER ==
[~2017-08-20 12:44] MED LIST changes: -TRAZ1TAB14 PO; +ZOLP5TAB3 PO
[2017-08-20 13:05] VITALS: BP 150/69; PULSE 80; RESP 20; TEMP 98.2; O2SAT 96
--- NOTE | 2017-08-20 13:28 | PD ---
History of Present Illness Chief Complaint: Psychiatry/BA Time Seen by Provider: 13:20 Travel History International Travel<30 Days: No Contact w/Intl Traveler<30days: No Known affected area: No Legal Status Legal Status: Ureña Act Ureña Act Signed By: Araceli Paredes History of Present Illness: History of Present Illness HPI 37-year-old, single, ,male, known to psychiatry service due to multiple ED visits, history of schizophrenia, presents to the emergency department under Ureña act initiated by law enforcement. According to the Ureña act report "the assisted living facility where patient lives called on this date stating the patient had been making suicidal and homicidal statements. Upon contacted by phone he stated that he has a mental disorder and he feels like harming himself and wanted to get help. Patient has been seen multiple times that the ED since he was discharged from 4 year long hospitalization at the [facility]. The patient is receiving services from the FACT team and has an established treatment plan for when he is not feeling safe. The patient has not been following his treatment plan which is to call different staff members before he comes to the hospital. The patient is seen with Timur it risk and assurance manager. He is alert, oriented, calm, cooperative. He states that he was not feeling safe at his [facility] and that he does not like it there. He is now stating that he feels safe and that he wants to be discharge. The patient does not endorse any suicidal or homicidal ideation, intent or plan. He has met with his [facility] lining caser and she is awaiting to bring him back to his [facility]. I find no reason at this time to keep him here under the Ureña act. PFSH Past Medical History Hx Anticoagulant Therapy: No AAA: No ADD: No ADHD: No Alzheimer's Disease: No Anemia: No Arthritis: No Asthma: No Atrial Fibrillation: No Autoimmune Disease: No Blood Disorders: No Bipolar Disorder: Yes Anxiety: Yes Depression: No Heart Rhythm Problems: No Cancer: No Cardiomyopathy: No Cardiovascular Problems: No Cerebral Palsy: No High Cholesterol: No Chemotherapy: No Chest Pain: No Congestive Heart Failure: No Cirrhosis: No COPD: No Cerebrovascular Accident: No Coronary Artery Disease: No Cystic Fibrosis: No Dementia: No Developmental Delay: No Diabetes: No Dialysis: No Diminished Hearing: No Diverticulitis: No Deep Vein Thrombosis: No Endocrine: No Fibromyalgia: No Gastrointestinal Disorders: No Genetic Disorder: No GERD: No Glaucoma: No Gout: No Genitourinary: No Headaches: No Hepatitis: No Hiatal Hernia: No Heparin Induced Thrombocytopen: No Herniated Disk: No Hypertension: No Immune Disorder: No Inguinal Hernia: No Implanted Vascular Access Dvce: No Insomnia: No Kidney Stones: No Musculoskeletal: No Neurologic: No Parkinson's Disease: No Psychiatric: Yes (SCHITZOAFFECTIVE D/O) Reproductive: No Respiratory: No Resp. Syncytial Virus (RSV): No Integumentary: No Immunizations Current: No Migraines: No Myocardial Infarction: No Pancreatitis: No Pneumonia: No Radiation Therapy: No Renal Failure: No Schizophrenia: No Seizures: No Shingles: No Sickle Cell Disease: No Sleep Apnea: No Thyroid Disease: No Triglycerides - High: No Ulcer: No Past Surgical History AICD: No Arteriovenous Shunt: No Hysterectomy: No Insulin Pump: No Pacemaker: No Psychiatric History Psychiatric History Hx Psychiatric Treatment: Extensive psychiatric history with state hospital [facility]. His last admission to [facility] was a few months ago. History of Inpatient Treatment: Yes Guns or firearms in home: No Social History Single, never , on disability. Resident of [facility]. Hx Alcohol Use: No Hx Tobacco Use: Yes (3 PPD) Hx Substance Use: No Substance Use Type: Nicotine/Cigarettes Hx of Substance Use Treatment: No Family Psychiatric History Unknown Allergies-Medications (Allergen,Severity, Reaction): Coded Allergies: albuterol (Unverified Allergy, Severe, Hives, 08/17/17) bupropion (Verified Allergy, Intermediate, hives, 08/17/17) Reported Meds & Prescriptions Reported Meds & Active Scripts Active Haloperidol 20 Mg Tab 20 Mg PO 2 PO BID Olanzapine 10 Mg Tab 10 Mg PO HS [Benztropine] 1 MG Tab 2 Mg PO Q12HR 15 Days Clonazepam 0.5 Mg Tab 0.5 Mg PO TID Reported Zolpidem (Zolpidem Tartrate) 5 Mg Tab 5 Mg PO HS PRN Paroxetine (Paroxetine HCl) 30 Mg Tab 30 Mg PO DAILY Docusate Sodium 100 Mg Cap 100 Mg PO DAILY Review of Systems Psychiatric: COMPLAINS OF: Anxiety Except as stated in HPI: all other systems reviewed are Neg Mental Status Examination Appearance: Appropriate Consciousness: Alert Orientation: x4 Motor Activity: Normal gait Speech: Unremarkable Language: Adequate Fund of Knowledge: Inadequate (Appears to be below average intellectual functioning) Attention and Concentration: Adequate Memory: Unremarkable Mood: Anxious Affect: Appropriate Thought Process & Associations: Intact, Logical, Goal directed Thought Content: Appropriate Hallucination Type: None Delusion Type: None Suicidal Ideation: No Suicidal Plan: No Suicidal Intention: No Homicidal Ideation: No Homicidal Plan: No Homicidal Intention: No Insight: Poor Judgment: Impulsive MDM Medical Decision Making Medical Record Reviewed: Yes Assessment/Plan 37-year-old, single, ,male, known to psychiatry service due to multiple ED visits, history of schizophrenia, presents to the emergency department under Ureña act initiated by law enforcement. According to the Ureña act report "the assisted living facility where patient lives called on this date stating the patient had been making suicidal and homicidal statements. Upon contacted by phone he stated that he has a mental disorder and he feels like harming himself and wanted to get help. Patient has met with his lining caser from [facility]. Patient is denying any suicidal or homicidal ideation, intent or plan. He tells us that he came to the hospital because he was feeling stressed and feeling unsafe. The patient is encouraged to utilize his support system in the community. We have reviewed the protocol in place for him for when he is feeling unsafe. The Ureña act as lifted. Psychiatrically clear for discharge from the ED. Diagnosis Primary Impression: Paranoid type schizophrenia, chronic state Psychiatrically Cleared: Yes Disposition: 01 DISCHARGE HOME Condition: Stable Florence Baker Aug 20, 2017 13:28
--- NOTE | 2017-08-20 14:13 | PD ---
Physical Exam Date Seen by Provider: Aug 20, 2017 Time Seen by Provider: 14:12 Narrative For full history and physical examination please see previous reports from earlier today. Patient was supposed to be transferred to [facility] however there was no bed available but he already been removed from the computer , he was never out of the care of [employer] employees. Patient's environmental studies professor from [facility] is waiting for him. Data Data Last Documented VS Vital Signs Date Time Temp Pulse Resp B/P (MAP) Pulse Ox O2 Delivery O2 Flow Rate FiO2 08/20/17 13:05 98.2 80 20 150/69 (96) 96 Orders Orders Ed Discharge Order (08/20/17 14:11) [facility] Medical Record Reviewed: Yes Supervised Visit with MICHELLE: No Narrative Course Patient will be released to estimate environmental studies professor, he had been previously seen, evaluated emergency department and medically cleared, he has also been seen and evaluated by the psychiatric nurse practitioner, Niranjan act was lifted. Please see her documentation. Patient will be discharged to caseworkers custody at this time. Diagnosis Primary Impression: Paranoid type schizophrenia, chronic state Referrals: [facility] Patient Instructions: General Instructions Additional Instruction: Follow-up with psychiatrist, follow-up at [facility] Return to emergency department for any new worsening symptoms Med/Other Pt SpecificInfo: No Change to Meds Disposition: 01 DISCHARGE HOME Condition: Stable Isamar Levin Aug 20, 2017 14:13
== END 2017-08-20 14:36 | disposition home or self-care (01) ==
LOC: NEPJ 12:44
DX: F20.0 Paranoid schizophrenia (principal); F31.9 Bipolar disorder, unspecified; F41.9 Anxiety disorder, unspecified; F17.210 Nicotine dependence, cigarettes, uncomplicated
CPT/HCPCS: 99283

== ENCOUNTER 2017-08-26 23:51 | Inpatient (IN) | payer OTHER ==
[~2017-08-26] VITALS: Ht 180.3 cm; Wt 94.6 kg
[2017-08-26 23:57] VITALS: BP 109/65; PULSE 90; RESP 12; TEMP 98.6
--- NOTE | 2017-08-27 00:28 | PD ---
HPI Chief Complaint: Psychiatric Symptoms Time Seen by Provider: 00:21 Travel History International Travel<30 days: No Contact w/Intl Traveler<30days: No Traveled to known affect area: No History of Present Illness HPI 37-year-old white male presents emergency department under Ureña act by . Patient had contacted PD stating that he suffers from schizophrenia and has been off his medications now for the past week and a half. He had come to [place] on a Greyhound from [place]. He states that he had intended to stay with his sister and [id number].. The patient allegedly left [place] without his medications. He is currently homeless on the streets. He states that he knows that he needs to get back on his medications. He denies any active suicidal or homicidal ideation. The patient is unsure of his medication list. He denies any toxic ingestions. He denies any acute medical complaints. PFS Past Medical History Narrative Medical Anxiety, depression, bipolar, schizophrenia. Denies any history of TBI, cerebral palsy or developmental delay. Reports graduating from high school. Hx Anticoagulant Therapy: No Asthma: Yes Depression: Yes Cardiovascular Problems: No Chemotherapy: No Cerebrovascular Accident: No Diabetes: No Respiratory: No Schizophrenia: Yes Tetanus Vaccination: Unknown Past Surgical History Surgical History: No Previous Surgery Social History Alcohol Use: No Tobacco Use: Yes Substance Use: No Allergies-Medications (Allergen,Severity, Reaction): Coded Allergies: albuterol (Verified Allergy, Unknown, Hives, 08/27/17) Review of Systems General / Constitutional: No: Fever Eyes: No: Visual changes HENT: No: Headaches Cardiovascular: No: Chest Pain or Discomfort Respiratory: No: Shortness of Breath Gastrointestinal: No: Abdominal Pain Genitourinary: No: Dysuria Musculoskeletal: No: Pain Skin: No Rash Neurologic: No: Weakness Psychiatric: Positive: Anxiety, Depression, Mood Disorder, No: Suicidal Ideations, Disorder of Thought, Substance Abuse, Homicidal Ideation Endocrine: No: Polydipsia Hematologic/Lymphatic: No: Easy Bruising Physical Exam Narrative GENERAL: Well-nourished, patient has the demeanor of a developmental delayed individual. Patient reports that he did graduate high school. SKIN: Warm and dry. HEAD: Normocephalic and atraumatic. EYES: No scleral icterus. No injection or drainage. ENT: No nasal drainage noted. Mucous membranes pink. Airway patent. NECK: Supple, trachea midline. Moves head freely without obvious discomfort. CARDIOVASCULAR: Regular rate and rhythm without murmurs, gallops, or rubs. RESPIRATORY: Breath sounds equal bilaterally. No accessory muscle use. GASTROINTESTINAL: Abdomen soft, non-tender, nondistended. EXTREMITIES: No cyanosis or edema. BACK: Nontender without obvious deformity. No CVA tenderness. NEURO: Patient is alert and oriented. no sensorimotor deficits. Nonfocal. Normal speech. PSYCH: No delusions. No auditory or visual hallucinations. Data Data Last Documented VS Vital Signs Date Time Temp Pulse Resp B/P (MAP) Pulse Ox O2 Delivery O2 Flow Rate FiO2 08/26/17 23:57 98.6 90 12 109/65 (80) Orders Orders Complete Blood Count With Diff (08/27/17 00:21) Comprehensive Metabolic Panel (08/27/17 00:21) Thyroid Stimulating Hormone (08/27/17 00:21) Valproic Acid (Depakene) (08/27/17 00:21) Psych Screen (08/27/17 00:21) Drug Screen, Random Urine (08/27/17 00:21) Alcohol (Ethanol) (08/27/17 00:21) Haloperidol (Haldol) (08/27/17 00:30) MDM Medical Decision Making Medical Screen Exam Complete: Yes Emergency Medical Condition: Yes Medical Record Reviewed: Yes Interpretation(s) Laboratory Tests Test 08/27/17 00:00 Differential Diagnosis MDM: High Differential diagnoses: Schizophrenia, schizoaffective disorder, bipolar, anxiety, depression, adjustment reaction, mood disorder NOS, ODD, depressive disorder NOS, dementia, dementia with agitation, psychosis NOS, substance induced mood disorder, DMDD, Asperger syndrome, infection,electrolyte abnormality, malingering. Narrative Course Mental health screening discussed with the patient. Psychiatric screen ordered. Basic medical clearance exam labs have been ordered including a Depakote. Patient is unsure of his medication list as well as his dosing. Patient was given Haldol 5 mg p.o. Condition: Stable Nile Acosta Aug 27, 2017 00:28
[2017-08-27] MEDS ORDERED: HALOPERIDOL 5 MG TAB PO ONE (00:30)
[2017-08-27 00:33] LABS: AUTOMATED NEUTROPHIL # 7.3 TH/MM3 (1.8-7.7); BASOPHIL # 0.1 TH/MM3 (0-0.2); BASOPHIL % 0.7 % (0.0-2.0); EOSINOPHIL # 0.2 TH/MM3 (0-0.4); EOSINOPHIL % 1.9 % (0.0-4.0); HEMATOCRIT 45.2 % (39.0-51.0); HEMOGLOBIN 15.8 GM/DL (13.0-17.0); LYMPH % 24.3 % (9.0-44.0); LYMPHOCYTE # 2.7 TH/MM3 (1.0-4.8); MEAN CELL VOLUME 86.9 FL (80.0-100.0); MEAN CORPUSCULAR HEMOGLOBIN 30.3 PG (27.0-34.0); MEAN CORPUSCULAR HGB CONC 34.9 % (32.0-36.0); MEAN PLATELET VOLUME 6.8 FL (7.0-11.0); MONO % 6.3 % (0.0-8.0); MONOCYTE # 0.7 TH/MM3 (0-0.9); NEUT % 66.8 % (16.0-70.0); PLATELET COUNT 243 TH/MM3 (150-450); RED CELL DISTRIBUTION WIDTH 13.2 % (11.6-17.2)
[2017-08-27 00:53] LABS: ALBUMIN 4.2 GM/DL (3.4-5.0); ALT (GPT) 33 U/L (12-78); AST (GOT) 25 U/L (15-37); BICARBONATE 22.9 MEQ/L (21.0-32.0); BLOOD UREA NITROGEN 19 MG/DL (7-18); CALCIUM 8.7 MG/DL (8.5-10.1); CHLORIDE 106 MEQ/L (98-107); CREATININE 0.86 MG/DL (0.60-1.30); GLOMERULAR FILTRATION RATE 101 ML/MIN (>89); GLUCOSE,RANDOM 127 MG/DL (74-106); SODIUM (NA) 139 MEQ/L (136-145)
[2017-08-27 01:02] LABS: ALKALINE PHOSPHATASE 90 U/L (45-117); TOTAL BILIRUBIN ADULT 0.2 MG/DL (0.2-1.0); TOTAL PROTEIN 7.6 GM/DL (6.4-8.2)
[2017-08-27 01:50] VITALS: BP 130/64; PULSE 79; RESP 20; O2SAT 97
[2017-08-27 09:25] VITALS: BP 114/59; PULSE 74; RESP 14; TEMP 98; O2SAT 96
[2017-08-27 12:15] VITALS: BP 118/63; PULSE 71; RESP 16; TEMP 98.1; O2SAT 96
[2017-08-27] MEDS ORDERED: OLAN10TA PO (22:48)
[2017-08-27] MEDS ORDERED: AMBI10TA PO (22:48)
[2017-08-27] MEDS ORDERED: HALO20TA PO (22:48)
[2017-08-27] MEDS ORDERED: PARO30TA2 PO (22:48)
[2017-08-27] MEDS ORDERED: COLA100C5 PO (22:48)
[2017-08-27] MEDS ORDERED: CLON0.5T PO (22:48)
[2017-08-27] MEDS ORDERED: BENZ0.5T PO (22:48)
[2017-08-27] MEDS ORDERED: hydrOXYzine HCL 50 MG TAB PO PRN (23:45)
[2017-08-27] MEDS ORDERED: ZOLPIDEM TARTRATE 10 MG TAB PO PRN (23:45)
[2017-08-27] MEDS ORDERED: ALUMINUM/MAGNESIUM/SIMETH 30 ML CUP PO PRN (23:45)
[2017-08-27] MEDS ORDERED: ACETAMINOPHEN 325 MG TAB PO PRN (23:45)
[2017-08-27] MEDS ORDERED: MAGNESIUM HYDROXIDE SUSP 30 ML CUP PO PRN (23:45)
[2017-08-28 01:00] VITALS: BP 126/74; PULSE 71; RESP 18; TEMP 98.4; O2SAT 96
[2017-08-28 06:27] VITALS: BP 104/56; PULSE 80; RESP 20; TEMP 97.2; O2SAT 98
[2017-08-28 08:16] LABS: AUTOMATED NEUTROPHIL # 2.3 TH/MM3 (1.8-7.7); BASOPHIL # 0.1 TH/MM3 (0-0.2); BASOPHIL % 1.4 % (0.0-2.0); EOSINOPHIL # 0.2 TH/MM3 (0-0.4); EOSINOPHIL % 3.5 % (0.0-4.0); HEMATOCRIT 46.1 % (39.0-51.0); LYMPH % 40.8 % (9.0-44.0); LYMPHOCYTE # 2.1 TH/MM3 (1.0-4.8); MEAN CELL VOLUME 87.7 FL (80.0-100.0); MEAN CORPUSCULAR HEMOGLOBIN 30.4 PG (27.0-34.0); MEAN CORPUSCULAR HGB CONC 34.7 % (32.0-36.0); MEAN PLATELET VOLUME 6.8 FL (7.0-11.0); MONO % 10.3 % (0.0-8.0); MONOCYTE # 0.5 TH/MM3 (0-0.9); PLATELET COUNT 226 TH/MM3 (150-450); RED BLOOD COUNT 5.25 MIL/MM3 (4.50-5.90); RED CELL DISTRIBUTION WIDTH 13.3 % (11.6-17.2); WHITE BLOOD COUNT 5.2 TH/MM3 (4.0-11.0)
[2017-08-28] MEDS: NICOTINE 21 MG/24 HR PATCH T-DERMAL SCH (09:00)
[2017-08-28] MEDS ORDERED: clonazePAM 0.5 MG TAB PO SCH (09:00)
[2017-08-28] MEDS ORDERED: PARoxetine HCL 20 MG TAB PO SCH (09:00)
[2017-08-28] MEDS ORDERED: HALOPERIDOL 10 MG TAB PO SCH (09:00)
[2017-08-28] MEDS: BENZTROPINE MESYLATE 2 MG TAB PO SCH ×2 (09:55→21:04)
[2017-08-28] MEDS: DOCUSATE SODIUM 100 MG CAP PO SCH (09:55)
--- NOTE | 2017-08-28 10:51 | PD.CONS ---
[facility] By Reason for Consult Medical management Primary Care Physician No Primary Care Physician Diagnoses: History of Present Illness 37-year-old male with a past medical history of schizophrenia who presented to the emergency department on 08/26 after patient was Ureña acted by police department. Medical record was reviewed, Ureña act initiated after patient made statements to a [employer] employee regarding harming himself and the fact that he had been out of his schizophrenia medications. Apparently patient is originally from [place] and came down to [place] on a Greyhound bus. Patient denies having any family members who live locally and is unable to provide me with any information regarding why he has moved to [place]. He is a smoker denies any alcohol or illicit drug use. He denies any fevers, chills, nausea, diarrhea, shortness of breath, cough, chest pain, dizziness, lightheadedness or headaches. He does report one episode of vomiting this morning shortly after breakfast and states that he now feels "much better now". He denies any more ongoing nausea or vomiting, has been able to eat and drink without any issues. He voices no acute concerns or complaints at the moment. Review of Systems Except as stated in HPI: all other systems reviewed are Neg Past Family Social History Allergies: Coded Allergies: albuterol (Verified Allergy, Unknown, Hives, 08/27/17) bupropion (Verified Allergy, Unknown, Hives, 08/27/17) Past Medical History Schizophrenia Past Surgical History Denies past surgical history Reported Medications Reported Meds & Active Scripts Active Reported Benztropine (Benztropine Mesylate) 0.5 Mg Tab 2 Mg PO BID Paroxetine (Paroxetine HCl) 30 Mg Tab 30 Mg PO DAILY Olanzapine 10 Mg Tab 10 Mg PO HS Clonazepam 0.5 Mg Tab 0.5 Mg PO BID Ambien (Zolpidem Tartrate) 10 Mg Tab 10 Mg PO HS PRN Haloperidol 20 Mg Tab 20 Mg PO BID Colace (Docusate Sodium) 100 Mg Capsule 100 Mg PO DAILY Active Ordered Medications Current Medications Medications (Trade) Dose Ordered Sig/Krissy Route Start Time Stop Time Status Last Admin (Atarax) 50 mg Q6H PRN PO 08/27/17 23:45 (Tylenol) 650 mg Q4H PRN PO 08/27/17 23:45 (Milk Of Magnesia Liq) 30 ml DAILY PRN PO 08/27/17 23:45 (Mag-Al Plus Susp Liq) 30 ml Q6H PRN PO 08/27/17 23:45 (Habitrol 21 Mg Patch.24 Hr) 1 patch DAILY T-DERMAL 08/28/17 09:00 Miscellaneous Information 1 HS T-DERMAL 08/28/17 21:00 (Colace) 100 mg DAILY PO 08/28/17 09:00 08/28/17 09:55 (Haldol) 20 mg BID PO 08/28/17 09:00 08/28/17 09:55 (Ambien) 10 mg HS PRN PO 08/27/17 23:45 (KlonoPIN) 0.5 mg BID PO 08/28/17 09:00 08/28/17 09:55 (ZyPREXA) 10 mg HS PO 08/28/17 21:00 (Paxil) 30 mg DAILY PO 08/28/17 09:00 08/28/17 09:55 (Cogentin) 2 mg BID PO 08/28/17 09:00 08/28/17 09:55 Family History Denies any past medical family history. Social History Tobacco: Smokes 3 packs/day since he was the age of 14 Alcohol use: Denies Illicit drug use: Denies Physical Exam Vital Signs Vital Signs Date Time Temp Pulse Resp B/P (MAP) Pulse Ox O2 Delivery O2 Flow Rate FiO2 08/28/17 06:27 97.2 80 20 104/56 (72) 98 08/28/17 01:00 98.4 71 18 126/74 (91) 96 08/28/17 00:40 08/27/17 12:15 98.1 71 16 118/63 (81) 96 Room Air Physical Exam GENERAL: This is a well-nourished, well-developed patient, in no apparent distress. SKIN: No rashes, ecchymoses. Cool and dry. Multiple tattoos over arms and chest. HEAD: Atraumatic. Normocephalic. EYES: Pupils equal round and reactive. Extraocular motions intact. No scleral icterus. No injection or drainage. ENT: Nose without bleeding, purulent drainage. Throat without erythema or exudate. Uvula midline. Airway patent. NECK: Trachea midline. No JVD. Supple, nontender. CARDIOVASCULAR: Regular rate and rhythm without murmurs, gallops, or rubs. RESPIRATORY: Clear to auscultation. Breath sounds equal bilaterally. No wheezes , rales, or rhonchi. GASTROINTESTINAL: Abdomen soft, non-tender, nondistended. No masses. No guarding. Active bowel sounds x4 quadrants MUSCULOSKELETAL: Extremities without clubbing, cyanosis, or edema. No joint tenderness, effusion, or edema noted. No calf tenderness. NEUROLOGICAL: Awake and alert. Cranial nerves II through XII grossly intact. Motor and sensory grossly within normal limits. Five out of 5 muscle strength in all muscle groups. Normal speech. Laboratory Laboratory Tests Test 08/28/17 07:32 White Blood Count 5.2 Red Blood Count 5.25 Hemoglobin 16.0 Hematocrit 46.1 Mean Corpuscular Volume 87.7 Mean Corpuscular Hemoglobin 30.4 Mean Corpuscular Hemoglobin Concent 34.7 Red Cell Distribution Width 13.3 Platelet Count 226 Mean Platelet Volume 6.8 Neutrophils (%) (Auto) 44.0 Lymphocytes (%) (Auto) 40.8 Monocytes (%) (Auto) 10.3 Eosinophils (%) (Auto) 3.5 Basophils (%) (Auto) 1.4 Neutrophils # (Auto) 2.3 Lymphocytes # (Auto) 2.1 Monocytes # (Auto) 0.5 Eosinophils # (Auto) 0.2 Basophils # (Auto) 0.1 CBC Comment DIFF FINAL Differential Comment Result Diagram: 08/28/17 0732 08/27/17 0000 Assessment and Plan Assessment and Plan 37-year-old male with past medical history of schizophrenia Ureña acted by police department after making statements of hurting himself admitted to inpatient psychiatry department. [facility] is consulted to assist with medical management. Schizophrenia -Treatment plan per psychiatry -CBC, BMP, and tox screen reviewed, unremarkable. Vital signs have been stable and patient making no medical complaints. Vomiting -1 episode noted this morning, will add as needed Zofran in case this continues. -Possibly related to something he ate or medications. DVT prophylaxis-ambulation Thank you for this consultation, [facility] will sign off. Please reconsult if needed. Niru Mitchell Aug 28, 2017 10:51
[2017-08-28] MEDS ORDERED: ONDANSETRON ODT 4 MG TAB PO PRN (12:45)
--- NOTE | 2017-08-28 13:52 | HHI.HP ---
Provisional Diagnosis Admission Date Aug 27, 2017 at 23:18 Vandiver I. 1. Schizophrenia, paranoid type 2. Rule out component of factitious disorder Vandiver II. Deferred Certification of Person's Competence To Provide Express and Informed Consent I have personally examined Sesar Salazar , a person being served at [facility] on, Aug 28, 2017 13:52. Express and informed consent means consent voluntarily given in writing, by a competent person, after sufficient explanation and disclosure of the subject matter involved to enable the person to make a knowing and willful decision without any element of force, fraud, deceit, duress, or other form of constraint or coercion. This person is 18 years of age or older, is not now known to be incompetent to consent to treatment with a guardian advocate, and does not have a health care surrogate or proxy currently making medical treatment decisions. I have found this person to be one of the following: [x] Competent to provide express and informed consent, as defined above, for voluntary admission to this facility and is competent to provide express and informed consent for treatment. He/she has the consistent capacity to make well reasoned, willful, and knowing decisions concerning his or her medical or mental health treatment. The person fully and consistently understands the purpose of the admission for examination/placement and is fully capable of personally exercising all rights assured under [place] Incompetent to provide express and informed consent to voluntary admission, and this is incompetent to provide express and informed consent to treatment. The person must be transferred to involuntary status and a petition for a guardian advocate filed with the Circuit Court. [] Refusing to provide express and informed consent to voluntary admission but is competent to provide express and informed consent for treatment. The person must be discharged or transferred to involuntary status. Form shall be completed within 24 hours of a person's arrival at the receiving facility and filed in the clinical record of each person: 1. Admitted on a voluntary basis 2. Permitted to provide express and informed consent to his/her own treatment 3. Allowed to transfer from involuntary to voluntary status 4. Prior to permitting a person to consent to his or her own treatment after having been previously found incompetent to consent to treatment. History of Present Illness Capacity: Has Capacity Psych Chief Complaint: SI HPI This patient is in fact Sesar Hartman, well-known to the psychiatric service here from multiple ED visits and psychiatric hospitalizations since his release from the [facility]. He was brought to the ED under a [place] act by law enforcement alleging threats of suicide to a convenience in store representative. Reviewing the electronic medical record for patient's real name I note that the patient was seen in consultation in the ED by the psychiatric nurse practitioner on 08/20 and was most recently psychiatrically admitted under Dr. Vincent from 07/24 through 08/05/17. He was apparently being maintained on Paxil 60 mg daily, Haldol 40 mg twice daily, Klonopin 0.5 mg 3 times daily and Zyprexa 10 mg at bedtime during that hospitalization. Patient seen and examined with nurse. Chart reviewed. Case discussed with nursing staff who reports that the patient complained of nausea and emesis for which the hospitalist has been consulted. However, nurse also notes that patient's roommate approached nurse and informed her that patient was sticking his finger down his throat to induce vomiting. On my examination today, the patient presents as somewhat anxious. He exhibits audible bruxism. He admits to making the statements alleged in the [place] Act and says "I needed help. Just help." He denies AVH but does admit to some paranoia. Affect is dysphoric and anxious. No severe depressive or hypomanic/manic symptoms. He does describe some ongoing very vague suicidal ideation. No reported urge to hurt himself on the inpatient unit. No homicidal ideation. Psychiatric interview is somewhat limited because the patient complains of nausea and asks to be returned to the unit. I am unable to obtain any past psychiatric, family , chemical dependency or social history from the patient at this encounter for this reason, but this has been amply documented elsewhere. Besides the nausea, no acute physical complaints. Review of Systems ROS Limitations: Psychotic, Poor Historian Except as stated in HPI: all other systems reviewed are Neg Past Family Social History Coded Allergies: albuterol (Verified Allergy, Unknown, Hives, 08/27/17) bupropion (Verified Allergy, Unknown, Hives, 08/27/17) Past Medical History See electronic medical record Reported Medications Benztropine (Benztropine) 0.5 Mg Tab, 2 MG PO BID, #60 TAB 0 Refills 08/27/17 Paroxetine (Paroxetine) 30 Mg Tab, 30 MG PO DAILY, #30 TAB 0 Refills 08/27/17 Olanzapine (Olanzapine) 10 Mg Tab, 10 MG PO HS, #30 TAB 0 Refills 08/27/17 Clonazepam (Clonazepam) 0.5 Mg Tab, 0.5 MG PO BID, #60 TAB 0 Refills 08/27/17 Zolpidem (Ambien) 10 Mg Tab, 10 MG PO HS Y for INSOMNIA, TAB 0 Refills 08/27/17 Haloperidol (Haloperidol) 20 Mg Tab, 20 MG PO BID, #30 TAB 0 Refills 08/27/17 Docusate Sodium (Colace) 100 Mg Capsule, 100 MG PO DAILY for Prevent Constipation, #30 CAP 0 Refills 08/27/17 Current Medications Medications (Trade) Dose Ordered Sig/Krissy Route Start Time Stop Time Status Last Admin (Atarax) 50 mg Q6H PRN PO 08/27/17 23:45 (Tylenol) 650 mg Q4H PRN PO 08/27/17 23:45 (Milk Of Magnesia Liq) 30 ml DAILY PRN PO 08/27/17 23:45 (Mag-Al Plus Susp Liq) 30 ml Q6H PRN PO 08/27/17 23:45 (Habitrol 21 Mg Patch.24 Hr) 1 patch DAILY T-DERMAL 08/28/17 09:00 Miscellaneous Information 1 HS T-DERMAL 08/28/17 21:00 (Colace) 100 mg DAILY PO 08/28/17 09:00 08/28/17 09:55 (Haldol) 20 mg BID PO 08/28/17 09:00 08/28/17 09:55 (Ambien) 10 mg HS PRN PO 08/27/17 23:45 (KlonoPIN) 0.5 mg BID PO 08/28/17 09:00 08/28/17 09:55 (ZyPREXA) 10 mg HS PO 08/28/17 21:00 (Paxil) 30 mg DAILY PO 08/28/17 09:00 08/28/17 09:55 (Cogentin) 2 mg BID PO 08/28/17 09:00 08/28/17 09:55 (Zofran Odt) 4 mg Q6H PRN PO 08/28/17 12:45 Patient's Strengths (min. 2) In a monitored setting. Verbally fluent. Physical Exam Physical exam completed by hospitalist institutional nutrition consultant. On my examination today, the patient appears to be in no acute physical distress. No motor abnormalities noted. Labs and vital signs reviewed: Vital Signs Vital Signs Date Time Temp Pulse Resp B/P (MAP) Pulse Ox O2 Delivery O2 Flow Rate FiO2 08/28/17 06:27 97.2 80 20 104/56 (72) 98 08/27/17 12:15 Room Air Lab Results Test 08/28/17 07:32 White Blood Count 5.2 TH/MM3 Red Blood Count 5.25 MIL/MM3 Hemoglobin 16.0 GM/DL Hematocrit 46.1 % Mean Corpuscular Volume 87.7 FL Mean Corpuscular Hemoglobin 30.4 PG Mean Corpuscular Hemoglobin Concent 34.7 % Red Cell Distribution Width 13.3 % Platelet Count 226 TH/MM3 Mean Platelet Volume 6.8 FL Neutrophils (%) (Auto) 44.0 % Lymphocytes (%) (Auto) 40.8 % Monocytes (%) (Auto) 10.3 % Eosinophils (%) (Auto) 3.5 % Basophils (%) (Auto) 1.4 % Neutrophils # (Auto) 2.3 TH/MM3 Lymphocytes # (Auto) 2.1 TH/MM3 Monocytes # (Auto) 0.5 TH/MM3 Eosinophils # (Auto) 0.2 TH/MM3 Basophils # (Auto) 0.1 TH/MM3 CBC Comment DIFF FINAL Differential Comment Mental Status Examination Appearance: Disheveled Consciousness: Alert, Vigilant Orientation: Person, Place (At least) Motor Activity: Normal gait Speech: Unremarkable Language: Adequate Fund of Knowledge: Adequate Attention and Concentration: Adequate Memory: Unremarkable (Grossly intact on clinical exam) Mood: Anxious Affect: Anxious, Other (Dysphoric) Thought Process & Associations: Circumstantial Thought Content: Delusional Hallucination Type: None Delusion Type: Paranoid Suicidal Ideation: Yes (Vague) Suicidal Plan: No Suicidal Intention: No (No reported urge to hurt self on an inpatient unit) Homicidal Ideation: No Homicidal Plan: No Homicidal Intention: No Insight: Poor (Chronic) Judgment: Poor (Chronic) Assessment & Plan Problem List: (1) Paranoid schizophrenia ICD Codes: F20.0 - Paranoid schizophrenia Assessment & Plan 37-year-old male with psychiatric history as detailed above who presents under a [place] act by law enforcement. Patient endorses vague paranoia and suicidal ideation. He has a history of recurrent ED visits in between psychiatric hospitalizations following his discharge from the [facility]. Although he doubtless has severe and persistent mental illness, I do wonder whether he is not more comfortable in the structure of the inpatient unit and so is exhibiting some degree of factitious disorder with his psychiatric symptoms to assume the sick role. I will plan to admit the patient to the inpatient psychiatric unit for observation and stabilization. Admit inpatient. Voluntary status. I will adjust medication to doses consistent with those ordered by Dr. Vincent during recent hospitalization, namely: Haldol 40 mg twice daily, Zyprexa 10 mg at bedtime, Paxil 60 mg daily, Klonopin 0.5 mg 3 times daily. Atarax as needed for anxiety. R/B/A for medications reviewed with patient. Check EKG for QTC. Hospitalist input noted and appreciated. Vitals every shift. Counselor to see. Collateral information. Disposition planning. Estimated length of stay: 5-7 days. Discharge Planning Pending stabilization Request HC Surrog/Guard Advoc?: No Michael Ruano MD Aug 28, 2017 13:52
[2017-08-28] MEDS: clonazePAM 0.5 MG TAB PO SCH (18:09)
[2017-08-28 18:55] VITALS: BP 110/68; PULSE 78; RESP 19; TEMP 98; O2SAT 97
[2017-08-28 18:56] VITALS: BP 122/64; PULSE 70; RESP 19; TEMP 98; O2SAT 98
[2017-08-28] MEDS: REMOVE OLD NICOTINE PATCH T-DERMAL SCH (21:00)
[2017-08-28] MEDS: OLANZapine 10 MG TAB PO SCH (21:05)
[2017-08-28] MEDS: HALOPERIDOL 10 MG TAB PO SCH (21:06)
[2017-08-29 06:28] VITALS: BP 113/62; PULSE 71; RESP 14; TEMP 97.8; O2SAT 98
[2017-08-29 08:09] LABS: BICARBONATE 27.9 MEQ/L (21.0-32.0); BLOOD UREA NITROGEN 12 MG/DL (7-18); CHLORIDE 105 MEQ/L (98-107); CREATININE 0.73 MG/DL (0.60-1.30); GLOMERULAR FILTRATION RATE 122 ML/MIN (>89); GLUCOSE,RANDOM 88 MG/DL (74-106); SODIUM (NA) 142 MEQ/L (136-145)
[2017-08-29 08:15] LABS: CHOLESTEROL 142 MG/DL (120-200); CHOLESTEROL/ HDL RATIO 4.65 RATIO; HDL CHOLESTEROL 30.5 MG/DL (40.0-60.0); LDL CHOLESTEROL 74 MG/DL (0-99); TRIGLYCERIDES 186 MG/DL (42-150)
[2017-08-29] MEDS: NICOTINE 21 MG/24 HR PATCH T-DERMAL SCH (08:36)
[2017-08-29] MEDS: BENZTROPINE MESYLATE 2 MG TAB PO SCH ×2 (08:36→20:43)
[2017-08-29] MEDS: PARoxetine HCL 20 MG TAB PO SCH (08:36)
[2017-08-29] MEDS: DOCUSATE SODIUM 100 MG CAP PO SCH (08:36)
[2017-08-29] MEDS: HALOPERIDOL 10 MG TAB PO SCH ×2 (08:36→20:43)
[2017-08-29] MEDS: clonazePAM 0.5 MG TAB PO SCH ×3 (08:36→17:44)
--- NOTE | 2017-08-29 12:33 | HHI.PYPN ---
Subjective Chief Complaint: SI Remarks Patient seen and examined with nurse. Chart reviewed. Case discussed with nursing staff. Per nursing, patient has been somewhat drowsy today. He did get up for breakfast. He has had no further episodes of emesis. On my examination today, I find the patient sleeping in his room. He denies AVH but still appears a little internally preoccupied. He remains watchful and somewhat paranoid and is unable to tolerate extended interview. He denies side effects from medications, although he obviously is experiencing some mild sedation from the dose increase, and he feels like the increased dose of medications is helping with his psychiatric symptoms. No physical complaints. Says that he does not like his [facility] facility very much. Review of Systems ROS Limitations: Psychotic, Poor Historian Except as stated in HPI: all other systems reviewed are Neg Mental Status Examination Appearance: Disheveled (Grooming improved today somewhat) Consciousness: Asleep (Easily awakened) Orientation: Person, Place (At least) Motor Activity: Other (No motor abnormalities noted) Speech: Unremarkable Language: Adequate Fund of Knowledge: Adequate Attention and Concentration: Adequate Memory: Unremarkable (Grossly intact on clinical exam) Mood: Other (Calm) Affect: Blunt Thought Process & Associations: Circumstantial Thought Content: Delusional Hallucination Type: Other (Appears somewhat internally stimulated) Delusion Type: Paranoid Suicidal Ideation: No Suicidal Plan: No Suicidal Intention: No Homicidal Ideation: No Homicidal Plan: No Homicidal Intention: No Insight: Poor (Chronic) Judgment: Poor (Chronic) Results Labs Test 08/29/17 07:11 Blood Urea Nitrogen 12 MG/DL Creatinine 0.73 MG/DL Random Glucose 88 MG/DL Calcium Level 9.0 MG/DL Sodium Level 142 MEQ/L Potassium Level 3.9 MEQ/L Chloride Level 105 MEQ/L Carbon Dioxide Level 27.9 MEQ/L Anion Gap 9 MEQ/L Estimat Glomerular Filtration Rate 122 ML/MIN Triglycerides Level 186 MG/DL Cholesterol Level 142 MG/DL LDL Cholesterol 74 MG/DL HDL Cholesterol 30.5 MG/DL Cholesterol/HDL Ratio 4.65 RATIO Labs reviewed. Hemoglobin A1c pending. EKG sinus rhythm with QTC of 414 ms, not prolonged. Vitals/IOs Vital Signs Date Time Temp Pulse Resp B/P (MAP) Pulse Ox O2 Delivery O2 Flow Rate FiO2 08/29/17 06:28 97.8 71 14 113/62 (79) 98 6/12/18 12:15 Room Air Assessment & Plan Problem List: (1) Paranoid schizophrenia ICD Codes: F20.0 - Paranoid schizophrenia Assessment & Plan Given sedation, will not further titrate psychotropic medications today. We did undertake a fairly robust increase yesterday. Continue to monitor on the inpatient unit. Continue other medications and care as ordered. Justification for Cont. Inpt. Impairment in reality construction. Monitoring for impairment in safety. Risk for decompensation in less restrictive environment. Discharge Planning Patient reports that he is displeased with current placement. I will check with the counselor to see if alternative placement can be arranged. Request HC Surrog/Guard Advoc?: No Michael Ruano MD Aug 29, 2017 12:33
[2017-08-29 17:55] VITALS: BP 113/58; PULSE 74; RESP 16; TEMP 97.8; O2SAT 98
--- NOTE | 2017-08-29 18:10 | EKG ---
Date Performed: 08/28/2017 Time Performed: 17:36:41 PTAGE: 37 years EKG: Sinus rhythm EARLY REPOLARIZATION BORDERLINE ECG NO PREVIOUS TRACING DOCTOR: Madeleine Webb Interpretating Date/Time 08/29/2017 18:09:21
[2017-08-29] MEDS: REMOVE OLD NICOTINE PATCH T-DERMAL SCH (20:42)
[2017-08-29] MEDS: OLANZapine 10 MG TAB PO SCH (20:43)
[2017-08-30 05:41] VITALS: BP 96/50; PULSE 58; RESP 16; TEMP 98; O2SAT 98
[2017-08-30] MEDS: NICOTINE 21 MG/24 HR PATCH T-DERMAL SCH (09:00)
[2017-08-30] MEDS: HALOPERIDOL 10 MG TAB PO SCH (09:51)
[2017-08-30] MEDS: DOCUSATE SODIUM 100 MG CAP PO SCH (09:51)
[2017-08-30] MEDS: clonazePAM 0.5 MG TAB PO SCH ×3 (09:52→18:29)
[2017-08-30] MEDS: PARoxetine HCL 20 MG TAB PO SCH (09:52)
[2017-08-30] MEDS: BENZTROPINE MESYLATE 2 MG TAB PO SCH (10:06)
--- NOTE | 2017-08-30 11:26 | PD.TTN ---
Patient Problems 1. Discharge planning 2. Medication compliance 3. Knowledge deficit 4. Lack of coping skills Progress Toward Goals Provider Present: Dr. Alejandrina Ruano Provider Input: Dr. Ruano's held his treatment team meeting to discuss patient's treatment plan, medication and discharge plan, Psychiatric Counselors Present: Shama Armando [facility] Psych Therapist Input: Patient presents childlike, pleasant, affect blunted. Patient states he is still hearing voices but are not telling to harm himself and others. Patient is medication compliant. Patient is denying suicidal and homicidal ideation. Paient is pacing the unit. Group Spec/RT/OT/MORALES Present: JERAD Burris Group Spec/RT/OT/MORALES Input: Patient does not attend groups Shama Armando [facility] Aug 30, 2017 11:26
[2017-08-30] MEDS ORDERED: HALO10TA PO (14:28)
[2017-08-30] MEDS ORDERED: PARO20TA2 PO (14:28)
[2017-08-30] MEDS ORDERED: OLAN10TA PO (14:28)
[2017-08-30] MEDS ORDERED: CLON.5 PO (14:28)
[2017-08-30] MEDS ORDERED: BENZ0.5T PO (14:28)
--- NOTE | 2017-08-30 14:35 | HHI.DS ---
Psychiatry Discharge Summary Inpatient Psychiatric care?: Yes Advance Directive: No Reason Not Provided: pt not interested Mental Health AdvanceDirective: No Health Care Proxy: No Admission Admission Date Aug 27, 2017 at 23:18 Admission Diagnosis: (1) Paranoid schizophrenia ICD Code: F20.0 - Paranoid schizophrenia Brief History This patient is in fact Sesar Hartman, well-known to the psychiatric service here from multiple ED visits and psychiatric hospitalizations since his release from the [facility]. He was brought to the ED under a [place] act by law enforcement alleging threats of suicide to a convenience store detective. Reviewing the electronic medical record for patient's real name I note that the patient was seen in consultation in the ED by the psychiatric nurse practitioner on 08/20 and was most recently psychiatrically admitted under Dr. Vincent from 07/24 through 08/05/17. He was apparently being maintained on Paxil 60 mg daily, Haldol 40 mg twice daily, Klonopin 0.5 mg 3 times daily and Zyprexa 10 mg at bedtime during that hospitalization. Patient seen and examined with nurse. Chart reviewed. Case discussed with nursing staff who reports that the patient complained of nausea and emesis for which the hospitalist has been consulted. However, nurse also notes that patient's roommate approached nurse and informed her that patient was sticking his finger down his throat to induce vomiting. On my examination today, the patient presents as somewhat anxious. He exhibits audible bruxism. He admits to making the statements alleged in the [place] Act and says "I needed help. Just help." He denies AVH but does admit to some paranoia. Affect is dysphoric and anxious. No severe depressive or hypomanic/manic symptoms. He does describe some ongoing very vague suicidal ideation. No reported urge to hurt himself on the inpatient unit. No homicidal ideation. Psychiatric interview is somewhat limited because the patient complains of nausea and asks to be returned to the unit. I am unable to obtain any past psychiatric, family , chemical dependency or social history from the patient at this encounter for this reason, but this has been amply documented elsewhere. Besides the nausea, no acute physical complaints. Tobacco Use In Past 30 Days: 5 or More Cigarettes/Day Alcohol Use: Never Hospital Course Patient was admitted to a locked, inpatient psychiatric unit. A general medical consultation was obtained. Appropriate precautions were in place throughout patient's hospital stay. Patient was seen and examined on the unit by psychiatry and also visited by counselor. Psychotropic medications were adjusted. There was no evidence of any suicidality or homicidality on the inpatient unit. The patient remained in behavioral control and was medication compliant. On the day of discharge: Patient seen and examined with nurse. Chart reviewed. Case discussed with nursing staff. No behavioral issues noted overnight. Case discussed in treatment team. Per counselor, patient may return to his facility today. On my examination today, the patient appears quite euthymic. He is smiling ear to ear. He is visible on the unit. He does seem quite comfortable on the unit and even bargains for additional inpatient days, although there is no apparent clinical indication for this. I can elicit no depressive or hypomanic/manic symptoms. He has no suicidal or homicidal ideation, intent or plan. No audiovisual hallucinations. I can elicit no delusional material. He denies side effects from medications. No physical complaints. There is no evidence of imminent risk of harm to self or others in this patient at this time, and patient's level of function is adequate for planned level of outpatient care. The patient is judged to have maximized benefit from this inpatient psychiatric hospital stay. He will be discharged back to facility today with psychiatric follow-up as arranged by counselor. Patient is also to follow up with primary care. I have counseled the patient to return to the psychiatric emergency room for any concerning psychiatric symptoms as part of a general safety plan. With the benefit of observation, some degree of factitious disorder is suspected in the present case. Patient seems quite comfortable on the inpatient unit and seems to enjoy assuming the sick role. He does have a chronic psychotic illness, but this is stable at time of discharge. Results Blood Pressure 96 / 50 Vital Signs Date Time Temp Pulse Resp B/P (MAP) Pulse Ox O2 Delivery O2 Flow Rate FiO2 08/30/17 05:41 98.0 58 16 96/50 (65) 98 08/27/17 12:15 Room Air Laboratory Tests Test 08/28/17 07:32 08/29/17 07:11 Mean Platelet Volume 6.8 FL (7.0-11.0) Monocytes (%) (Auto) 10.3 % (0.0-8.0) Triglycerides Level 186 MG/DL (42-150) HDL Cholesterol 30.5 MG/DL (40.0-60.0) Laboratory Results Test 08/27/17 00:00 08/29/17 07:11 Valproic Acid (Depakene) Level LESS THAN 3 MCG/ML Cholesterol Level 142 MG/DL (120-200) HDL Cholesterol 30.5 MG/DL (40.0-60.0) Hemoglobin A1c 5.0 % (4.3-6.0) LDL Cholesterol 74 MG/DL (0-99) Triglycerides Level 186 MG/DL (42-150) Summary of Procedures None done Imaging None done Pending results at discharge: No Medications # of Antipsychotic meds at D/C: 2 Appropriate >1 Antipsych meds?: 4 Approp Antipsych med options 1 - Minimum of three failed multiple trials of monotherapy. 2 - Documented plan to taper to monotherapy due to previous use of multiple meds OR cross-taper in progress at D/C. 3 - Documentation of augmentation of Clozapine. 4 - Justification other than those listed in allowable values 1-3, document here : Prior to admission psychotropic regimen Discharge Discharge Date: Aug 30, 2017 Discharge Diagnosis: (1) Paranoid schizophrenia Diagnosis: Principal (Stabilized) ICD Code: F20.0 - Paranoid schizophrenia Pt Condition on Discharge: Stable Discharge Disposition: ACLF/GROUP HOME Discharge Instructions Diet Instructions: As Tolerated, No Restrictions Activities you can perform: Weight Bearing as Asim Scheduled Appointment: Musa Varghese Appointment Date: Sep 04, 2017 Appointment Time: 12:30pm New Medications: Clonazepam (Klonopin) 0.5 Mg Tab 0.5 MG PO TID for Mental Health for 15 Days, TAB 1 Refill Haloperidol (Haloperidol) 10 Mg Tab 40 MG PO BID for Mental Health for 15 Days, #120 TAB 1 Refill Paroxetine (Paroxetine) 20 Mg Tab 60 MG PO DAILY for Mental Health for 15 Days, #45 TAB 1 Refill Continued Medications: Benztropine (Benztropine) 0.5 Mg Tab 2 MG PO BID for Side effect management for 15 Days, #120 TAB 1 Refill (This prescription has been renewed) Docusate Sodium (Colace) 100 Mg Capsule 100 MG PO DAILY for Prevent Constipation, #30 CAP 0 Refills Olanzapine (Olanzapine) 10 Mg Tab 10 MG PO HS for Mental Health for 15 Days, TAB 1 Refill (This prescription has been renewed) Zolpidem (Ambien) 10 Mg Tab 10 MG PO HS PRN for INSOMNIA, TAB 0 Refills Discontinued Medications: Clonazepam (Clonazepam) 0.5 Mg Tab 0.5 MG PO TID for health, #90 TAB 0 Refills Clonazepam (Clonazepam) 0.5 Mg Tab 0.5 MG PO BID, #60 TAB 0 Refills Docusate Sodium (Docusate Sodium) 100 Mg Cap 100 MG PO DAILY for Prevent Constipation, #60 CAP 0 Refills Haloperidol (Haloperidol) 20 Mg Tab 20 MG PO 2 po bid for health, #120 TAB 0 Refills Haloperidol (Haloperidol) 20 Mg Tab 20 MG PO BID, #30 TAB 0 Refills Olanzapine (Olanzapine) 10 Mg Tab 10 MG PO HS for health, #30 TAB 0 Refills Paroxetine (Paroxetine) 30 Mg Tab 30 MG PO DAILY, #30 TAB 0 Refills Paroxetine (Paroxetine) 30 Mg Tab 30 MG PO DAILY, #30 TAB 0 Refills Zolpidem (Zolpidem) 5 Mg Tab 5 MG PO HS PRN for INSOMNIA, TAB 0 Refills [Benztropine] () 1 MG TAB 2 MG PO Q12HR for Side effect management for 15 Days, #60 TAB 0 Refills Discharge Time <= 30 minutes Mental Status Examination Appearance: Appropriate (Fair grooming and hygiene) Consciousness: Alert (No evidence of ongoing sedation) Orientation: Person, Place (At least) Motor Activity: Normal gait, Other (No abnormal motor movements noted) Speech: Unremarkable Language: Adequate Fund of Knowledge: Adequate Attention and Concentration: Adequate Memory: Unremarkable (Grossly intact on clinical exam) Mood: Appropriate Affect: Appropriate, Euthymic Thought Process & Associations: Intact, Goal directed, Linear Thought Content: Appropriate Hallucination Type: None Delusion Type: None Suicidal Ideation: No Suicidal Plan: No Suicidal Intention: No Homicidal Ideation: No Homicidal Plan: No Homicidal Intention: No Insight: Poor (Chronic) Judgment: Poor (Chronic) Discharge/Advance Care Plan Health Problems: (1) Paranoid schizophrenia Goals to promote your health * To prevent worsening of your condition and complications * To maintain your health at the optimal level Directions to meet your goals Take your medications as prescribed Follow your dietary instruction Follow activity as directed Keep your appointments as scheduled Take your immunizations and boosters as scheduled If your symptoms worsen call your PCP, if no PCP go to Urgent Care Center or Emergency Room For 08/10 questions related to your inpatient stay or results of tests pending at discharge, please contact Dr. Michael Ruano at Smoking is Dangerous to Your Health. Avoid second hand smoking Michael Ruano MD Aug 30, 2017 14:35
[2017-08-30 17:30] VITALS: BP 147/66; PULSE 76; RESP 20; TEMP 98.4; O2SAT 100
== END 2017-08-30 18:50 | disposition home or self-care (01) | DRG 885 ==
LOC: NEPD 23:51 → NEDA 08-27 23:18 → MERGE 08-27 23:18 → H260 08-28 00:49
PROVIDERS: ADMIT Psychiatry & Neurology Psychiatry; ATTEND Psychiatry & Neurology Psychiatry
DX: F20.0 Paranoid schizophrenia (principal); F68.10 Factitious disorder imposed on self, unspecified; R11.10 Vomiting, unspecified
CPT/HCPCS: 80048; 80053; 80061; 80164; 80307; 83036; 84443; 85025; 93005; 99285

== ENCOUNTER 2017-09-01 20:46 | Emergency (ER) | payer OTHER ==
[~2017-09-01] VITALS: Ht 177.8 cm; Wt 85.0 kg
[~2017-09-01 20:46] MED LIST changes: +AMBI10TA PO; +BENZ0.5T PO; -Benztropine PO; +CLON.5 PO; -CLON0.5T PO; +COLA100C5 PO; -DOCU100C15 PO; +HALO10TA PO; -HALO20TA PO; +PARO20TA2 PO; -PARO30TA2 PO; -ZOLP5TAB3 PO
[2017-09-01 21:08] VITALS: BP 136/87; PULSE 109; RESP 16; TEMP 99.8; O2SAT 96
--- NOTE | 2017-09-01 21:15 | PD ---
HPI Chief Complaint: Psychiatric Symptoms Time Seen by Provider: 21:09 Travel History International Travel<30 days: No Contact w/Intl Traveler<30days: No Traveled to known affect area: No History of Present Illness HPI 37-year-old male presents under Ureña act complaining of suicidal ideation and auditory hallucinations. Symptom onset today. Symptoms are moderate, no obvious aggravating or relieving factors. He reports that he takes Haldol as prescribed medication. He has no other associated signs or symptoms and he is other complaints at this time. Denies any drug or alcohol abuse. Seen here multiple times in the past complaining of similar things, seems to have a history of schizoaffective disorder. PFSH Past Medical History Hx Anticoagulant Therapy: No AAA: No ADD: No ADHD: No Alzheimer's Disease: No Anemia: No Arthritis: No Asthma: Yes Atrial Fibrillation: No Autoimmune Disease: No Blood Disorders: No Bipolar Disorder: Yes Anxiety: Yes Depression: Yes Heart Rhythm Problems: No Cancer: No Cardiomyopathy: No Cardiovascular Problems: No Cerebral Palsy: No High Cholesterol: No Chemotherapy: No Chest Pain: No Congestive Heart Failure: No Cirrhosis: No COPD: No Cerebrovascular Accident: No Coronary Artery Disease: No Cystic Fibrosis: No Dementia: No Developmental Delay: No Diabetes: No Dialysis: No Diminished Hearing: No Diverticulitis: No Deep Vein Thrombosis: No Endocrine: No Fibromyalgia: No Gastrointestinal Disorders: No Genetic Disorder: No GERD: No Glaucoma: No Gout: No Genitourinary: No Headaches: No Hepatitis: No Hiatal Hernia: No Heparin Induced Thrombocytopen: No Herniated Disk: No Hypertension: No Immune Disorder: No Inguinal Hernia: No Implanted Vascular Access Dvce: No Insomnia: No Kidney Stones: No Musculoskeletal: No Neurologic: No Parkinson's Disease: No Psychiatric: Yes Reproductive: No Respiratory: No Resp. Syncytial Virus (RSV): No Integumentary: No Immunizations Current: No Migraines: No Myocardial Infarction: No Pancreatitis: No Pneumonia: No Radiation Therapy: No Renal Failure: No Schizophrenia: Yes Seizures: No Shingles: No Sickle Cell Disease: No Sleep Apnea: No Thyroid Disease: No Triglycerides - High: No Ulcer: No Past Surgical History AICD: No Arteriovenous Shunt: No Hysterectomy: No Insulin Pump: No Pacemaker: No Family History Family Hypercholesterolemia: No Social History Alcohol Use: No Tobacco Use: Yes Substance Use: No Allergies-Medications (Allergen,Severity, Reaction): Coded Allergies: albuterol (Unverified Allergy, Severe, Hives, 08/17/17) bupropion (Verified Allergy, Intermediate, hives, 08/17/17) Reported Meds & Prescriptions Reported Meds & Active Scripts Active Haloperidol 10 Mg Tab 40 Mg PO BID 15 Days Paroxetine (Paroxetine HCl) 20 Mg Tab 60 Mg PO DAILY 15 Days Klonopin (Clonazepam) 0.5 Mg Tab 0.5 Mg PO TID 15 Days Benztropine (Benztropine Mesylate) 0.5 Mg Tab 2 Mg PO BID 15 Days Olanzapine 10 Mg Tab 10 Mg PO HS 15 Days Reported Ambien (Zolpidem Tartrate) 10 Mg Tab 10 Mg PO HS PRN Colace (Docusate Sodium) 100 Mg Capsule 100 Mg PO DAILY Review of Systems Except as stated in HPI: all other systems reviewed are Neg Physical Exam Narrative GENERAL: Well-nourished male in no acute distress SKIN: Warm and dry. HEAD: Atraumatic. Normocephalic. EYES: Pupils equal and round. No scleral icterus. No injection or drainage. ENT: No nasal bleeding or discharge. Mucous membranes pink and moist. NECK: Trachea midline. No JVD. CARDIOVASCULAR: Regular rate and rhythm. No murmur appreciated. RESPIRATORY: No accessory muscle use. Clear to auscultation. Breath sounds equal bilaterally. GASTROINTESTINAL: Abdomen soft, non-tender, nondistended. Hepatic and splenic margins not palpable. MUSCULOSKELETAL: No obvious deformities. No clubbing. No cyanosis. No edema. NEUROLOGICAL: Awake and alert. No obvious cranial nerve deficits. Motor grossly within normal limits. Normal speech. Data Data Last Documented VS Vital Signs Date Time Temp Pulse Resp B/P (MAP) Pulse Ox O2 Delivery O2 Flow Rate FiO2 09/01/17 21:08 99.8 109 16 136/87 (103) 96 Orders Orders Psych Screen (09/01/17 21:09) Drug Screen, Random Urine (09/01/17 21:09) MDM Medical Decision Making Medical Screen Exam Complete: Yes Emergency Medical Condition: Yes Medical Record Reviewed: Yes Differential Diagnosis Schizoaffective disorder, medication noncompliance, acute psychosis, substance- induced mood disorder Narrative Course Mental health screening discussed with the patient. Psychiatric screen ordered. Lab work is been reviewed from 5 days ago, was unremarkable. He is medically cleared. Diagnosis Primary Impression: Medical clearance for psychiatric admission Jonathan Harden Sep 01, 2017 21:15
[2017-09-02 06:17] VITALS: BP 107/53; PULSE 75; RESP 18; TEMP 98.3
--- NOTE | 2017-09-02 10:18 | PD ---
Physical Exam Time Seen by Provider: 10:[address] Aleman has evaluated the patient, lifted the Ureña act and cleared the patient for discharge. Data Data Last Documented VS Vital Signs Date Time Temp Pulse Resp B/P (MAP) Pulse Ox O2 Delivery O2 Flow Rate FiO2 09/02/17 06:17 98.3 75 18 107/53 (71) Room Air 95 09/01/17 21:08 96 Orders Orders Psych Screen (09/01/17 21:09) Drug Screen, Random Urine (09/01/17 21:09) Diet Regular Basic (09/02/17 Breakfast) MDM Supervised Visit with MICHELLE: No Narrative Course Dr. Aleman has evaluated the patient, lifted the Ureña act and cleared the patient for discharge. Patient contracts safety. Denies suicidal or homicidal ideations. Patient will be provided community resource packet to [facility] for follow-up. Has friends and family for support. Patient was medically cleared by alternate provider prior to psych screening. Patient has been evaluated by psychiatry and and is now cleared for discharge. Diagnosis Primary Impression: Malingering Referrals: [facility] (Out patient) [facility] Primary Care Physician Psychiatrist [place] [facility] Patient Instructions: General Instructions, Schizoaffective Disorder (ED) Additional Instruction: Contract safety to your self and others Follow-up with psychiatry Follow-up with primary care provider Follow-up with Musa Birch Return to the emergency department immediately with worsening of symptoms Med/Other Pt SpecificInfo: No Change to Meds, No Meds Exist/No RX given Disposition: 01 DISCHARGE HOME Condition: Stable Edilma Machuca Sep 02, 2017 10:18
--- NOTE | 2017-09-02 15:44 | PD.PSY.CON ---
Provisional Diagnosis Admission Date [place]. Schizoaffective disorder, bipolar History of Present Illness Service Psychiatry Consult Requested By ER Reason for Consult Auditory hallucinate Primary Care Physician No Primary Care Physician HPI The patient is 37-year-old man, single, unemployed, domiciled in [facility], with an extensive history of schizoaffective disorder, multiple psychiatric hospitalizations, last hospitalization here in [place] about a week ago, Dc on Paxil 60 mg daily, Haldol 40 mg twice daily, Klonopin 0.5 mg 3 times daily and Zyprexa 10 mg at bedtime during that hospitalization, whopresents under Ureña act complaining of suicidal ideation and auditory hallucinations. Symptom onset today. Symptoms are moderate, no obvious aggravating or relieving factors. He reports that he takes Haldol as prescribed medication. He has no other associated signs or symptoms and he is other complaints at this time. Denies any drug or alcohol abuse. Seen here multiple times in the past complaining of similar things, seems to have a history of schizoaffective disorder. However, today my psychiatric evaluation the patient says that he already feels much better. He reports that he has been taking his medications, but the time he hear voices "making a lot of noises". The patient reports good mood, he denies suicidal and homicidal ideation, he denies visual and auditory hallucinations at the moment. Oriented 3. He seems to be at baseline. Denies the use of illegal drugs or alcohol. Review of Systems Constitutional: DENIES: Diaphoretic episodes, Fatigue, Fever, Weight gain, Weight loss, Chills, Dizziness, Change in appetite, Night Sweats Endocrine: DENIES: Heat/cold intolerance, Polydipsia, Polyuria, Polyphagia Eyes: DENIES: Blurred vision, Diplopia, Eye inflammation, Eye pain, Vision loss , Photosensitivity, Double Vision Ears, nose, mouth, throat: DENIES: Tinnitus, Hearing loss, Vertigo, Nasal discharge, Oral lesions, Throat pain, Hoarseness, Ear Pain, Running Nose, Epistaxis, Sinus Pain, Toothache, Odynophagia Respiratory: DENIES: Apneas, Cough, Snoring, Wheezing, Hemoptysis, Sputum production, Shortness of breath Cardiovascular: DENIES: Chest pain, Palpitations, Syncope, Dyspnea on Exertion , PND, Lower Extremity Edema, Orthopnea, Claudication Gastrointestinal: DENIES: Abdominal pain, Black stools, Bloody stools, Constipation, Diarrhea, Nausea, Vomiting, Difficulty Swallowing, Anorexia Genitourinary: DENIES: Sexual dysfunction, Urinary frequency, Urinary incontinence, Urgency, Hematuria, Dysuria, Nocturia, Penile Discharge, Testicular Pain, Testicular Swelling Musculoskeletal: DENIES: Joint pain, Muscle aches, Stiffness, Joint Swelling, Back pain, Neck pain Integumentary: DENIES: Abnormal pigmentation, Nail changes, Pruritus, Rash Hematologic/lymphatic: DENIES: Bruising, Lymphadenopathy Immunologic/allergic: DENIES: Eczema, Urticaria Neurologic: DENIES: Abnormal gait, Headache, Localized weakness, Paresthesias, Seizures, Speech Problems, Tremor, Poor Balance Past Family Social History Coded Allergies: albuterol (Unverified Allergy, Severe, Hives, 09/01/17) bupropion (Verified Allergy, Intermediate, hives, 09/01/17) Active Scripts Haloperidol (Haloperidol) 10 Mg Tab, 40 MG PO BID for Mental Health for 15 Days , #120 TAB 1 Refill Prov:Michael Ruano MD 08/30/17 Paroxetine (Paroxetine) 20 Mg Tab, 60 MG PO DAILY for Mental Health for 15 Days , #45 TAB 1 Refill Prov:Michael Ruano MD 08/30/17 Clonazepam (Klonopin) 0.5 Mg Tab, 0.5 MG PO TID for Mental Health for 15 Days, TAB 1 Refill Prov:Michael Ruano MD 08/30/17 Benztropine (Benztropine) 0.5 Mg Tab, 2 MG PO BID for Side effect management for 15 Days, #120 TAB 1 Refill Prov:Michael Ruano MD 08/30/17 Olanzapine (Olanzapine) 10 Mg Tab, 10 MG PO HS for Mental Health for 15 Days, TAB 1 Refill Prov:Michael Ruano MD 08/30/17 Reported Medications Zolpidem (Ambien) 10 Mg Tab, 10 MG PO HS Y for INSOMNIA, TAB 0 Refills 08/27/17 Docusate Sodium (Colace) 100 Mg Capsule, 100 MG PO DAILY for Prevent Constipation, #30 CAP 0 Refills 08/27/17 Discontinued Reported Medications Paroxetine (Paroxetine) 30 Mg Tab, 30 MG PO DAILY, #30 TAB 0 Refills 08/27/17 Clonazepam (Clonazepam) 0.5 Mg Tab, 0.5 MG PO BID, #60 TAB 0 Refills 08/27/17 Haloperidol (Haloperidol) 20 Mg Tab, 20 MG PO BID, #30 TAB 0 Refills 08/27/17 Zolpidem (Zolpidem) 5 Mg Tab, 5 MG PO HS Y for INSOMNIA, TAB 0 Refills 08/19/17 Paroxetine (Paroxetine) 30 Mg Tab, 30 MG PO DAILY, #30 TAB 0 Refills 08/19/17 Docusate Sodium (Docusate Sodium) 100 Mg Cap, 100 MG PO DAILY for Prevent Constipation, #60 CAP 0 Refills 04/30/17 Discontinued Scripts Haloperidol (Haloperidol) 20 Mg Tab, 20 MG PO 2 po bid for health, #120 TAB 0 Refills Prov:Tor Vincent MD 08/05/17 Olanzapine (Olanzapine) 10 Mg Tab, 10 MG PO HS for health, #30 TAB 0 Refills Prov:Tor Vincent MD 08/05/17 [Benztropine] 1 MG TAB No Conflict Check, 2 MG PO Q12HR for Side effect management for 15 Days, #60 TAB 0 Refills Prov:Tor Vincent MD 08/05/17 Clonazepam (Clonazepam) 0.5 Mg Tab, 0.5 MG PO TID for health, #90 TAB 0 Refills Prov:Tor Vincent MD 08/05/17 Physical Exam Vital Signs Vital Signs Date Time Temp Pulse Resp B/P (MAP) Pulse Ox O2 Delivery O2 Flow Rate FiO2 09/02/17 10:30 09/02/17 06:17 98.3 75 18 Room Air 95 09/01/17 21:08 96 Mental Status Examination Appearance: Appropriate Consciousness: Alert Orientation: x4 Motor Activity: Normal gait Speech: Unremarkable Language: Adequate Fund of Knowledge: Adequate Attention and Concentration: Adequate Memory: Unremarkable Mood: Appropriate Affect: Appropriate Thought Process & Associations: Intact Thought Content: Appropriate Hallucination Type: None Delusion Type: None Suicidal Ideation: No Suicidal Plan: No Suicidal Intention: No Homicidal Ideation: No Homicidal Plan: No Homicidal Intention: No Insight: Adequate Judgment: Adequate Assessment & Plan Problem List: (1) Paranoid schizophrenia ICD Codes: F20.0 - Paranoid schizophrenia Assessment & Plan: On psychiatric evaluation today the patient presents at baseline, denies visual and auditory hallucinations, denies suicidal and homicidal ideation. He reports being compliant with medications, he has occasional auditory hallucinations, but not at this moment. the patient should continue his current psychotropic regimen and outpatient basis. He does not meet criteria for involuntary psychiatric admission at this moment. Extensive support, motivation and psychoeducation provided. Ureña act will be lifted. Assessment & Plan Estimated LOS: days Justen Block MD Sep 02, 2017 15:44
== END 2017-09-02 11:29 | disposition home or self-care (01) ==
LOC: NEPJ 20:46
DX: Z76.5 Malingerer [conscious simulation] (principal); F20.0 Paranoid schizophrenia; J45.909 Unspecified asthma, uncomplicated; F31.9 Bipolar disorder, unspecified; F41.9 Anxiety disorder, unspecified; R45.851 Suicidal ideations; Z72.0 Tobacco use
CPT/HCPCS: 99284

== ENCOUNTER 2017-11-19 07:46 | Inpatient (IN) ==
[2017-11-19] MEDS ORDERED: Aluminum/Magnesium/Simethacone Susp 30 ML UDC PO PRN (08:33)
[2017-11-19] MEDS ORDERED: Bisacodyl 10 MG Supp RECTAL PRN (08:33)
--- NOTE | 2017-11-19 12:27 | P.HPPSY ---
Provisional Diagnosis Admission Date: November 19, 2017 10:27 [place] I.: Schizoaffective disorder, bipolar type Competence Certification of Person's Competence To Provide Express and Informed Consent I have personally examined Sesar Hartman, a person being served at [facility] on, November 19, 2017 1208. Express and informed consent means consent voluntarily given in writing, by a competent person, after sufficient explanation and disclosure of the subject matter involved to enable the person to make a knowing and willful decision without any element of force, fraud, deceit, duress, or other form of constraint or coercion. This person is 18 years of age or older, is not now known to be incompetent to consent to treatment with a guardian advocate, and does not have a health care surrogate or proxy currently making medical treatment decisions. I have found this person to be one of the following: [x] Competent to provide express and informed consent, as defined above, for voluntary admission to this facility and is competent to provide express and informed consent for treatment. He/she has the consistent capacity to make well reasoned, willful, and knowing decisions concerning his or her medical or mental health treatment. The person fully and consistently understands the purpose of the admission for examination/placement and is fully capable of personally exercising all rights [place] Incompetent to provide express and informed consent to voluntary admission, and this is incompetent to provide express and informed consent to treatment. The person must be transferred to involuntary status and a petition for a guardian advocate filed with the Circuit Court. [] Refusing to provide express and informed consent to voluntary admission but is competent to provide express and informed consent for treatment. The person must be discharged or transferred to involuntary status. Form shall be completed within 24 hours of a person's arrival at the receiving facility and filed in the clinical record of each person: 1. Admitted on a voluntary basis 2. Permitted to provide express and informed consent to his/her own treatment 3. Allowed to transfer from involuntary to voluntary status 4. Prior to permitting a person to consent to his or her own treatment after having been previously found incompetent to consent to treatment. History of Present Illness Capacity: Has capacity History of Present Illness: The patient is a 37-year-old man, homeless, single, supported by [facility], with an extensive psychiatric history of schizoaffective disorder, who is well- known to the department, multiple psychiatric admissions, last hospitalization in August 2017 under the care of Dr. Vincent, frequent ER utilizer, poor compliant with medications, outpatient care with [facility], member of the fact team, who presents today on the Ureña act transfer from [facility] with depression and suicidal ideation. The patient was just seen yesterday in our ER , he was discharged, he was also seen and discharged last Saturday. Chart review and discussed with nursing staff. Patient is in room D 49 of the emergency room. On my psychiatric evaluation today the patient is quite psychomotor retarded, disheveled, malodorous. He reports that he has no reason to live for, he has been feeling quite depressed in the last weeks, he is not taking his medications, has been homeless, not eating, losing weight, sleeping poorly, feeling hopeless, helpless, worthless, without any motivation to do anything. The patient also reports that he has been having persistent suicidal ideation with a plan of jumping in front of a car was jumping off a bridge. He also reports that he has been hearing voices telling him to kill himself. Is oriented 3, he still process is goal-directed, logical but somewhat delayed. He denies the use of illegal drugs and alcohol. PPHx: Patient has history of schizoaffective disorder, multiple psychiatric admissions, multiple ER visits, no compliant of medications, outpatient care with [facility]. He is supposed to be on Depakote 500 mg twice daily and olanzapine 10 mg twice daily PMHx: Patient does not have any previous medical history Substance Hx: He denies the use of illegal drugs and alcohol Family Hx: The patient was born and raised in [place] [facility], he is homeless, unemployed, poor family and social support, supported by [facility], his highest level of education is 11th grade . - Inpatient Certification I certify that the inpatient services were ordered in accordance with Medicare regulations governing the order. This includes certification that hospital inpatient services are reasonable and necessary and in the case of services not specified as inpatient-only under 42 CFR 419.22(n), that they are appropriately provided as inpatient services in accordance to with the 2-midnight benchmark under 43 CFR 412.3(e) I certify that inpatient psychiatric hospital services are medically necessary. Evaluation and treatment and/or diagnostic testing are expected to improve the patient's condition. The patient needs on a daily basis, active treatment furnished directly by or requiring the supervision of inpatient psychiatric facility personnel. Estimated Total Length of Stay (Days): 7 Plans for Post Hospital Care: Home Review of Systems All other systems reviewed negative except as stated in HPI Psychiatric: Reports depression, Reports hopelessness, Reports irritability, Reports thoughts of hurting/killing yourself PMF - History History Provided By: Patient - Medical History Medical History: Medical History (Last Reviewed 11/18/17 @ 01:09 by KEKE Guevara) Anxiety Asthma Schizo affective schizophrenia - Tobacco History Second Hand Smoke Exposure: Yes Smoking Status: Current every day smoker Tobacco Type: Cigarettes - Alcohol History How Often Do You Have a Drink Containing Alcohol: Never - Substance Use History Substance History: No History of Abuse - Travel History Recent Travel in the [place] Within the Last 8 Weeks: No Recent Travel Out of the Country Within the Last 8 Weeks: No Medications and Allergies Active Medications: Active Medications Al Hydrox/Mg Hydrox/Simethicone (Mag-Al Plus Susp Liq) 30 ml PO Q6H PRN PRN Reason: DYSPEPSIA Al Hydroxide/Mg Hydroxide (Milk Of Magnesia Liq) 30 ml PO Q12H PRN PRN Reason: Mild Constipation Bisacodyl (Dulcolax Supp) 10 mg RECTAL DAILY PRN PRN Reason: SEVERE CONSITIPATION Lactulose (Lactulose Liq) 30 ml PO DAILY PRN PRN Reason: SEVERE CONSITIPATION Olanzapine (Zyprexa) 5 mg PO BID SILVESTRE Senna/Docusate Sodium (Mikki-Colace) 1 tab PO BID SILVESTRE Sennosides (Senokot) 17.2 mg PO Q12H PRN PRN Reason: Moderate Constipation Allergies Allergy/AdvReac Type Severity Reaction Status Date / Time albuterol Allergy Severe Hives Verified 11/16/17 09:25 bupropion Allergy Intermediate hives Verified 11/16/17 09:25 Home Medications Medication Instructions Recorded Confirmed Type divalproex [Depakote] 1,000 mg PO BID 11/16/17 11/18/17 History olanzapine [Zyprexa] 20 mg PO DAILY 11/16/17 11/18/17 History paliperidone palmitate [Invega 234 mg IM QMONTH 11/16/17 11/18/17 History Sustenna] Exam Vital signs: Vital Signs 11/19/17 08:03 11/19/17 08:06 Temperature 98.8 F 98.8 F Pulse Rate 82 82 Respiratory Rate 18 18 Blood Pressure 128/65 128/65 Pulse Oximetry 96 96 Narrative: No tremors, no EPS, no withdrawal symptoms, no stiffness, no gait disturbance Mental Status Examination Appearance: Appropriate Consciousness: Alert Orientation: x4 Motor Activity: Normal gait Speech: Unremarkable Language: Adequate Fund of Knowledge: Adequate Attention and Concentration: Adequate Memory: Unremarkable Mood: Sad Affect: Sad Thought Process & Associations: Intact Thought Content: Appropriate Hallucination Type: None Delusion Type: None Suicidal Ideation: No Suicidal Plan: No Suicidal Intention: No Homicidal Ideation: No Homicidal Plan: No Homicidal Intention: No Insight: Adequate Judgment: Adequate Assessment and Plan - Assessment (1) Adjustment disorder Code(s): F43.20 - Adjustment disorder, unspecified Status: Acute - Plan Plan: Estimated LOS: [] days On psychiatric evaluation today the patient presents with depressive symptoms consisting in hopelessness, helplessness, anhedonia, decreased appetite, losing weight, persistent suicidal ideation with a plan of jumping off a bridge in the context of noncompliance with medications, poor family and social support, homelessness. There is a patient with an extensive psychiatric history of schizoaffective disorder, psychiatric hospitalizations, frequent ER utilizer, personality pathology, conscious simulation, suicidal attempts, poor impulse control, with this moment has an elevated risk of danger to self. He will be admitted in psychiatry for stabilization and safety. I will restart his psychotropics. Transfer patient to 2700 unit. Justification for Continued Inpatient Stay: Patient needs psychiatric hospitalization for stabilization. (1) Adjustment disorder Qualifiers: Adjustment disorder type: with depressed mood Qualified Code(s): F43.21 - Adjustment disorder with depressed mood
[2017-11-19] MEDS: Senna/Docusate Sodium 8.6/50 MG Tablet PO SCH ×3 (13:39→21:04)
[2017-11-20] MEDS: Senna/Docusate Sodium 8.6/50 MG Tablet PO SCH ×2 (08:30→21:58)
[2017-11-20 10:08] LABS: Anion Gap 8 meq/L (5-15); Calcium 8.3 mg/dL (8.5-10.1); Carbon Dioxide 25.5 meq/L (21.0-32.0); Chloride 108 meq/L (98-107); Cholesterol 178 mg/dL (120-200); Glomerular Filtration Rate Greater Than 89 mL/min (>89); Glucose,Random 122 mg/dL (74-106); Sodium 141 meq/L (136-145); Triglycerides 194 mg/dL (42-150)
[2017-11-20 10:12] LABS: Blood Urea Nitrogen 13 mg/dL (7-18); Chol/HDL Ratio 5.02 Ratio; HDL Cholesterol 35.4 mg/dL (40.0-60.0); LDL Cholesterol,Calculated 104 mg/dL (0-99)
[2017-11-20] MEDS: Acetaminophen 325 MG Tablet PO PRN (12:22)
[2017-11-20] MEDS: Divalproex 500 MG DR Tablet PO SCH ×2 (12:22→21:58)
[2017-11-20 15:30] LABS: Hemoglobin A1c 4.9 % (4.3-6.0)
--- NOTE | 2017-11-20 16:22 | P.PNPSY ---
Subjective Remarks: Patient seen for follow up, chart reviewed. Discussion nursing staff reported him to be pacing on the unit, responding to internal stimuli. Patient was found ambulating on the unit he states feeling "the same" stating that he has been homeless recently "I am on my own" reporting feeling depressed with suicide ideations and that his sleep has been "alright". Patient contracts her safety admitted to be very concrete during questioning and focused on medications for his anxiety. Patient is being followed by the FACT team and actually has a fpc residents which she frequently has wanted to return to it is had multiple ER visits. Review of Systems All other systems reviewed negative except as stated in HPI Mental Status Examination Appearance: Appropriate Consciousness: Alert Orientation: x4 Motor Activity: Normal gait Speech: Unremarkable Language: Adequate Fund of Knowledge: Adequate Attention and Concentration: Adequate Memory: Unremarkable Mood: Sad Affect: Blunt Thought Process & Associations: Intact Thought Content: Appropriate Hallucination Type: None Delusion Type: None Suicidal Ideation: No Suicidal Plan: No Suicidal Intention: No Homicidal Ideation: No Homicidal Plan: No Homicidal Intention: No Insight: Adequate Judgment: Adequate Assessment and Plan - Assessment (1) Adjustment disorder Code(s): F43.20 - Adjustment disorder, unspecified Status: Acute - Plan Plan: Patient be resumed on his medications which include Depakote 500 mg p.o. twice daily, and olanzapine 20 mg p.o. twice daily. Patient has had multiple ED visits endorsing suicide ideation as well as expressing his dislike with his current fpc and has prompted his multiple ER visits. Patient noted be very concrete and requiring redirection and encouragement. We will continue to monitor mood and behavior. Discharge planning in progress. Justification for Continued Inpatient Stay: At risk of further decompensation a lower level of care. (1) Adjustment disorder Qualifiers: Adjustment disorder type: with depressed mood Qualified Code(s): F43.21 - Adjustment disorder with depressed mood
[2017-11-20] MEDS: OLANZapine 10 MG Tablet PO SCH (21:58)
[2017-11-21] MEDS: OLANZapine 10 MG Tablet PO SCH ×2 (08:38→20:21)
[2017-11-21] MEDS: Divalproex 500 MG DR Tablet PO SCH ×2 (08:38→20:21)
[2017-11-21] MEDS: Senna/Docusate Sodium 8.6/50 MG Tablet PO SCH ×2 (08:48→20:20)
[2017-11-21] MEDS: Acetaminophen 325 MG Tablet PO PRN ×3 (10:02→21:17)
[2017-11-21] MEDS: LORazepam 1 MG Tablet PO SCH ×3 (12:20→17:03)
--- NOTE | 2017-11-21 16:46 | P.PNPSY ---
Subjective Remarks: Patient seen for follow up, chart reviewed. Discussion nursing staff reported the patient seclusive, pacing and talking to self at times. Patient was found ambulating on the unit which required stating that he wanted medications by injection that he is paying for the patient did have some childlike quality to himm., Very concrete states that he is feeling "alright" stating he is just simply did not elaborate why. Patient when asked about his perceptional disturbances he states "I do not know". Patient noted to be somewhat anxious during interview who was also noted to be pacing prior to interview. Patient's FACT team piano case maker came to visit patient is currently following we will continue to follow states that they feel comfortable having patient discharged to continue outpatient treatment. Review of Systems All other systems reviewed negative except as stated in HPI Mental Status Examination Appearance: Appropriate Consciousness: Alert Orientation: x4 Motor Activity: Normal gait Speech: Unremarkable Language: Adequate Fund of Knowledge: Adequate Attention and Concentration: Adequate Memory: Unremarkable Mood: Other ( "alright") Affect: Blunt Thought Process & Associations: Intact Thought Content: Appropriate Hallucination Type: None Delusion Type: None Suicidal Ideation: No Suicidal Plan: No Suicidal Intention: No Homicidal Ideation: No Homicidal Plan: No Homicidal Intention: No Insight: Adequate Judgment: Adequate Assessment and Plan - Assessment (1) Adjustment disorder Code(s): F43.20 - Adjustment disorder, unspecified Status: Acute - Plan Plan: Patient continues with very concrete interactions with staff, requesting medication to help with anxiety and is noted to be pacing. We will add Ativan 1 mg p.o. 3 times daily for the same. Continue rest of medications. We will continue to monitor mood and behavior. Patient likely for discharge tomorrow back to the fact team as he had come visit patient has no concern of patient returning back to his long-term. Continue rest of medications. Continue to monitor mood and behavior. Discharge planning in progress. Justification for Continued Inpatient Stay: At risk of further decompensation a lower level care. (1) Adjustment disorder Qualifiers: Adjustment disorder type: with depressed mood Qualified Code(s): F43.21 - Adjustment disorder with depressed mood
[2017-11-22 06:36] VITALS: BP 105/56; PULSE 61; RESP 18; TEMP 97.8; O2SAT 96
[2017-11-22] MEDS: LORazepam 1 MG Tablet PO SCH ×2 (09:12→12:30)
[2017-11-22] MEDS: Senna/Docusate Sodium 8.6/50 MG Tablet PO SCH (09:12)
[2017-11-22] MEDS: OLANZapine 10 MG Tablet PO SCH (09:12)
[2017-11-22] MEDS: Divalproex 500 MG DR Tablet PO SCH ×2 (09:13→10:29)
[2017-11-22] MEDS: Acetaminophen 325 MG Tablet PO PRN (10:31)
--- NOTE | 2017-11-22 16:52 | P.DSPSY ---
Psychiatry Discharge Summary Inpatient Psychiatric care?: Yes Advance Directives: No Mental Health Advance Directive: No Health Care Proxy: No - Admission Admission Date: November 19, 2017 10:27 - Admission Diagnosis (1) Adjustment disorder Code(s): F43.20 - Adjustment disorder, unspecified Brief History: The patient is a 37-year-old man, homeless, single, supported by [facility], with an extensive psychiatric history of schizoaffective disorder, who is well- known to the department, multiple psychiatric admissions, last hospitalization in August 2017 under the care of Dr. Vincent, frequent ER utilizer, poor compliant with medications, outpatient care with [facility], member of the fact team, who presents today on the [place] transfer from [facility] with depression and suicidal ideation. The patient was just seen yesterday in our ER , he was discharged, he was also seen and discharged last Saturday. Chart review and discussed with nursing staff. Patient is in room D 49 of the emergency room. On my psychiatric evaluation today the patient is quite psychomotor retarded, disheveled, malodorous. He reports that he has no reason to live for, he has been feeling quite depressed in the last weeks, he is not taking his medications, has been homeless, not eating, losing weight, sleeping poorly, feeling hopeless, helpless, worthless, without any motivation to do anything. The patient also reports that he has been having persistent suicidal ideation with a plan of jumping in front of a car was jumping off a bridge. He also reports that he has been hearing voices telling him to kill himself. Is oriented 3, he still process is goal-directed, logical but somewhat delayed. He denies the use of illegal drugs and alcohol. PPHx: Patient has history of schizoaffective disorder, multiple psychiatric admissions, multiple ER visits, no compliant of medications, outpatient care with [facility]. He is supposed to be on Depakote 500 mg twice daily and olanzapine 10 mg twice daily PMHx: Patient does not have any previous medical history Substance Hx: He denies the use of illegal drugs and alcohol Family Hx: The patient was born and raised in [facility], he is homeless, unemployed, poor family and social support, supported by [facility], his highest level of education is 11th grade . Tobacco Use In Past 30 Days: Yes How Often Do You Have a Drink Containing Alcohol: Never Hospital Course: The patient is a 37-year-old man, homeless, single, supported by [facility], with an extensive psychiatric history of schizoaffective disorder, who is well- known to the department, multiple psychiatric admissions, last hospitalization in August 2017 under the care of Dr. Vincent, frequent ER utilizer, poor compliant with medications, outpatient care with [facility], member of the fact team, who presents today on the [place] [facility] transfer from [facility] with depression and suicidal ideation and admitted for further evaluation and management. Patient was resumed on olanzapine 10mg PO BID, Depakote 500mg PO BID, lorazepam 1mg PO TID which he tolerated medications well with no adverse drug reactions. Patient was noted to have stable mood with occasional verbal outbursts but easily redirectable. He was also noted to be very concrete and required redirection but no behavioral disturbances or aggression. He no longer endorsed any suicidal ideation during admission. Patient continued to deny any suicidal or homicidal ideation nor any perceptual disturbances. He responded well to treatment, was noted to be cooperative with staff, had good behavioral control with no evidence of any verbal or physical aggressive behavior toward others and was noted to have stable mood with treatment. FACT team came to see the patient and despite occasional verbal outbursts had reported that patient was at baseline and willing to take patient back to his fdc and continue follow up with them. Upon discharge patient reported feeling fine denied any perceptual disturbances nor suicidal ideations or homicidal ideations. Patient agreed to continue treatment and follow up appointments for continuity of care. Patient will be discharged to fdc as arranged by counselor with plan to continue recommendations on an outpatient setting. Supportive psychotherapy provided. Patient was counseled on importance of compliance with treatment. Suicide and violence risk assessment on day of discharge both suggest lower imminent risk, and the patient's level of function is adequate for planned level of outpatient care. Patient has maximized benefit from this inpatient psychiatric hospital stay and to return to psychiatric emergency room for any concerning psychiatric symptoms. Patient agrees with plan. - Discharge Discharge Date: 11/22/17 - Discharge Diagnosis (1) Adjustment disorder Code(s): F43.20 - Adjustment disorder, unspecified Status: Acute Discharge Disposition: Residential Long Term - Discharge Instructions Discharge Diet: Regular Diet Activities You Can Perform: Regular- No Restrictions - Discharge Time > 30 minutes Mental Status Examination Appearance: Appropriate Consciousness: Alert Orientation: x4 Motor Activity: Normal gait Speech: Unremarkable Language: Adequate Fund of Knowledge: Adequate Attention and Concentration: Adequate Memory: Unremarkable Mood: Other ( "alright") Affect: Blunt Thought Process & Associations: Intact Thought Content: Appropriate Hallucination Type: None Delusion Type: None Suicidal Ideation: No Suicidal Plan: No Suicidal Intention: No Homicidal Ideation: No Homicidal Plan: No Homicidal Intention: No Insight: Adequate Judgment: Adequate Discharge/Advance Care Plan - Results Vital Signs: Last Vital Signs Temp 97.8 F 11/22/17 06:34 Pulse 61 11/22/17 06:34 Resp 18 11/22/17 06:34 BP 105/56 L 11/22/17 06:34 Pulse Ox 96 11/22/17 06:34 Lab Results: Abnormal Lab Results 11/22/17 09:50 Valproic Acid 31 L Laboratory Results Hemoglobin A1c 4.9 % (4.3-6.0) 11/20/17 08:39 Triglycerides 194 mg/dL (42-150) H 11/20/17 08:39 Cholesterol 178 mg/dL (120-200) 11/20/17 08:39 LDL Cholesterol, Calc 104 mg/dL (0-99) H 11/20/17 08:39 HDL Cholesterol 35.4 mg/dL (40.0-60.0) L 11/20/17 08:39 Valproic Acid 31 mcg/mL (50-100) L 11/22/17 09:50 Summary of Procedures: none Pending Results: None - Medications Number of antipsychotic medications at discharge: 1 - Discharge Care Plan Goals to Promote Your Health: * To prevent worsening of your condition and complications * To maintain your health at the optimal level Directions to Meet Your Goals: Take your medications as prescribed Follow your dietary instruction Follow activity as directed Keep your appointments as scheduled Take your immunizations and boosters as scheduled If your symptoms worsen call your PCP, if no PCP go to Urgent Care Center or Emergency Room For 08/10 questions related to your inpatient stay or results of tests pending at discharge, please contact Dr. Terrell Dominguez MD at Smoking is Dangerous to Your Health. Avoid second hand smoking
== END 2017-11-22 14:25 ==
LOC: NEDAMB 07:46 → H260 10:10 → NEDA 10:27 → H260 11:04
PROVIDERS: ADMIT Student in an Organized Health Care Education/Training Program; ATTEND Student in an Organized Health Care Education/Training Program

== ENCOUNTER 2017-12-10 18:52 | Inpatient (IN) ==
--- NOTE | 2017-12-10 19:49 | ED ---
HPI General Stated complaint: Psych Eval/[facility] Time Seen by Provider: 12/10/17 19:28 Source: patient Mode of arrival: other Limitations: no limitations History of Present Illness HPI narrative: 37-year-old male with history of paranoid schizophrenia, currently off his medication for 4 days, presents emergency department under [place] [facility] for psychiatric evaluation. Patient flagged down police sergeant precinct, telling him that he was suicidal. His plan is to hang himself. He states that his depression has gotten worse over the last 3-4 days. He denies any auditory or visual hallucinations. He denies any illicit drug use. Patient has no current medical needs at this time. Related Data Home Medications Medication Instructions Recorded Confirmed paliperidone palmitate [Invega 234 mg IM QMONTH 11/16/17 11/26/17 Sustenna] Previous Rx's Medication Instructions Recorded divalproex 500 mg PO BID 15 Days #30 tab 11/22/17 lorazepam 1 mg PO TID 15 Days #45 tab 11/22/17 olanzapine 10 mg PO BID 15 Days #30 tab 11/22/17 ondansetron [Zofran ODT] 4 mg PO Q6H PRN #7 tab 11/26/17 Allergies Allergy/AdvReac Type Severity Reaction Status Date / Time albuterol Allergy Severe Hives Verified 12/10/17 19:49 bupropion Allergy Intermediate hives Verified 12/10/17 19:49 Review of Systems ROS: all other systems reviewed are negative PMFSH History History Provided By: Patient Medical History Medical History Anxiety (Acute) Asthma (Acute) Schizo affective schizophrenia (Acute) Social History Social History Substance History: No History of Abuse Second Hand Smoke Exposure: Yes Smoking Status: Heavy tobacco smoker Tobacco Type: Cigarettes Packs Per Day: 4 Cigarettes Per Day: 80.0 How Often Do You Have a Drink Containing Alcohol: 4 or more times a week Recent Travel in [facility] within the Last 8 Weeks: No Recent Out of Country Travel within the Last 8 Weeks: No Exam Narrative Exam Narrative: GENERAL: Well-nourished male patient, in no acute distress SKIN: Focused skin assessment warm/dry. Patient's chart is wet from sweating however patient was outside. Currently his skin is dry HEAD: Atraumatic. Normocephalic. EYES: Pupils equal and round. No scleral icterus. No injection or drainage. ENT: No nasal bleeding or discharge. Mucous membranes pink and moist. NECK: Trachea midline. No JVD. CARDIOVASCULAR: Regular rate and rhythm. No murmur appreciated. RESPIRATORY: No accessory muscle use. Clear to auscultation. Breath sounds equal bilaterally. GASTROINTESTINAL: Abdomen soft, non-tender, nondistended. Hepatic and splenic margins not palpable. MUSCULOSKELETAL: No obvious deformities. No clubbing. No cyanosis. No edema. NEUROLOGICAL: Awake and alert. No obvious cranial nerve deficits. Motor grossly within normal limits. Normal speech. PSYCHIATRIC: Bizarre affect Medical Decision Making MICHELLE Attestation MICHELLE supervised visit: Yes MDM Narrative Medical decision making narrative: 37-year-old male with history of schizophrenia presents emergency department under [place] for psychiatric evaluation. Patient reports suicidal ideations with plan to hang himself. Lab work is ordered. Without any acute lab abnormality, patient will be medically cleared to undergo psychiatric screening for further evaluation and disposition. Mental health screening discussed with the patient. Psychiatric screen ordered. Medical Screen Exam Complete: Yes Emergency Medical Condition: Yes Differential Diagnosis Differential Diagnosis: Mood disorder versus personality disorder versus adjustment reaction disorder Medical Records Medical records reviewed: Yes I reviewed the patient's medical records. Lab Data Result diagrams: 12/10/17 19:15 12/10/17 19:15 Discharge Plan Discharge Disposition Patient Disposition: 30 Still Patient Discharge Condition Condition: Stable Discharge Details Diagnosis: Paranoid schizophrenia, Suicidal ideation Physicians Team ED Provider: Bernarda Garcia ED Midlevel Provider: Meliza Dey Primary Care Provider: Primary Care Jacquelin Villatoro Rxs /Orders / Referrals /Forms Prescriptions: No Action olanzapine 10 mg Tablet 10 mg PO BID 15 Days Qty: 30 RF: 1 divalproex 500 mg Tablet,Delayed Release (Dr/Ec) 500 mg PO BID 15 Days Qty: 30 RF: 1 lorazepam 1 mg Tablet 1 mg PO TID 15 Days Qty: 45 RF: 1 ondansetron [Zofran ODT] 4 mg tablet,disintegrating 4 mg PO Q6H PRN (Reason: nausea and vomiting) Qty: 7 RF: 0 paliperidone palmitate [Invega Sustenna] 234 mg/1.5 mL Syringe 234 mg IM QMONTH RF: 0 Status ED Status: With Doctor
[2017-12-10 19:52] LABS: Baso % (Auto) 0.7 % (0.0-2.0); Eos # (Auto) 0.2 th/mm3 (0.0-0.4); Eos % (Auto) 3.7 % (0.0-4.0); Hematocrit 44.8 % (39.0-51.0); Hemoglobin 15.8 gm/dL (13.0-17.0); Lymph # (Auto) 1.2 th/mm3 (1.0-4.8); Lymph % (Auto) 19.7 % (9.0-44.0); Mean Corpuscular HGB Conc 35.3 % (32.0-36.0); Mean Corpuscular Hemoglobin 31.6 pg (27.0-34.0); Mean Corpuscular Volume 89.5 fL (80.0-100.0); Mono # (Auto) 1.1 th/mm3 (0.0-0.9); Mono % (Auto) 17.3 % (0.0-8.0); Neut # (Auto) 3.7 th/mm3 (1.8-7.7); Neut % (Auto) 58.6 % (16.0-70.0); Platelet Count 198 th/mm3 (150-450); Red Blood Count 5.01 mil/mm3 (4.50-5.90); White Blood Count 6.3 th/mm3 (4.0-11.0)
[2017-12-10 20:03] LABS: Anion Gap 8 meq/L (5-15); Blood Urea Nitrogen 13 mg/dL (7-18); Calcium 8.9 mg/dL (8.5-10.1); Carbon Dioxide 24.7 meq/L (21.0-32.0); Chloride 105 meq/L (98-107); Glomerular Filtration Rate Greater Than 89 mL/min (>89); Glucose,Random 99 mg/dL (74-106); Potassium 4.1 meq/L (3.5-5.1); Sodium 138 meq/L (136-145)
[2017-12-10 20:07] LABS: Thyroid Stimulating Hormone 0.982 uIU/mL (0.358-3.740)
[2017-12-10 21:06] LABS: Amphetamine Screen,Urine Neg (Neg); Barbiturate Screen,Urine Neg (Neg); Cannabinoid Screen,Urine Neg (Neg); Cocaine Screen,Urine Neg (Neg)
[2017-12-10 21:08] LABS: Opiate Screen,Urine Neg (Neg)
[2017-12-11] MEDS: Divalproex 500 MG DR Tablet PO SCH ×2 (11:27→20:17)
[2017-12-11] MEDS: OLANZapine 10 MG Tablet PO SCH ×2 (11:28→20:18)
[2017-12-11] MEDS ORDERED: Bisacodyl 10 MG Supp RECTAL PRN (12:30)
[2017-12-11] MEDS ORDERED: Aluminum/Magnesium/Simethacone Susp 30 ML UDC PO PRN (12:30)
--- NOTE | 2017-12-11 12:43 | P.HPPSY ---
Provisional Diagnosis Admission Date: December 10, 2017 18:52 [place] I.: Schizophrenia, personality disorder Competence Certification of Person's Competence To Provide Express and Informed Consent I have personally examined Sesar Hartman, a person being served at [facility] on, December 11, 2017 1237. Express and informed consent means consent voluntarily given in writing, by a competent person, after sufficient explanation and disclosure of the subject matter involved to enable the person to make a knowing and willful decision without any element of force, fraud, deceit, duress, or other form of constraint or coercion. This person is 18 years of age or older, is not now known to be incompetent to consent to treatment with a guardian advocate, and does not have a health care surrogate or proxy currently making medical treatment decisions. I have found this person to be one of the following: [] Competent to provide express and informed consent, as defined above, for voluntary admission to this facility and is competent to provide express and informed consent for treatment. He/she has the consistent capacity to make well reasoned, willful, and knowing decisions concerning his or her medical or mental health treatment. The person fully and consistently understands the purpose of the admission for examination/placement and is fully capable of personally exercising all rights assured [place] Incompetent to provide express and informed consent to voluntary admission, and this is incompetent to provide express and informed consent to treatment. The person must be transferred to involuntary status and a petition for a guardian advocate filed with the Circuit Court. [x] Refusing to provide express and informed consent to voluntary admission but is competent to provide express and informed consent for treatment. The person must be discharged or transferred to involuntary status. Form shall be completed within 24 hours of a person's arrival at the receiving facility and filed in the clinical record of each person: 1. Admitted on a voluntary basis 2. Permitted to provide express and informed consent to his/her own treatment 3. Allowed to transfer from involuntary to voluntary status 4. Prior to permitting a person to consent to his or her own treatment after having been previously found incompetent to consent to treatment. History of Present Illness Capacity: Has capacity History of Present Illness: The patient is a 37-year-old man, homeless, single, supported by [facility], with an extensive psychiatric history of schizoaffective disorder, who is well- known to the department, multiple psychiatric admissions, last hospitalization in November 2017 under the care of Dr. Dominguez, frequent ER utilizer, poor compliant with medications, he is on olanzapine 10 mg twice daily, Invega Ban 234, Depakote 500 mg twice daily, his Depakote level today is 62, outpatient care with , member of the fact team, no significant medical history, who presents today off his medication for 4 days, presents emergency department under [place] for psychiatric evaluation. Patient flagged down police investigator , telling him that he was suicidal. His plan is to hang himself. He states that his depression has gotten worse over the last 3-4 days. Chart review and discussed with nursing staff. Patient is in room J08 of the emergency room. On my psychiatric evaluation today the patient is quite psychomotor retarded, disheveled, malodorous. He reports that he has no reason to live for, he has been feeling quite depressed in the last weeks, he is not taking his medications , has been homeless, not eating, losing weight, sleeping poorly, feeling hopeless, helpless, worthless, without any motivation to do anything. The patient also reports that he has been having persistent suicidal ideation with a plan of jumping in front of a car was jumping off a bridge. He also reports that he has been hearing voices telling him to kill himself. Is oriented 3, he still process is goal-directed, logical but somewhat delayed. He denies the use of illegal drugs and alcohol. PPHx: schizoaffective disorder, who is well-known to the department, multiple psychiatric admissions, last hospitalization in November 2017 under the care of Dr. Dominguez, frequent ER utilizer, poor compliant with medications, he is on olanzapine 10 mg twice daily, Invega Ban 234, Depakote 500 mg twice daily, his Depakote level today is 62, outpatient care with , member of the fact team, PMHx: Patient does not have any previous medical history Substance Hx: He denies the use of illegal drugs and alcohol Family Hx: The patient was born and raised in [facility], he is homeless, unemployed, poor family and social support, supported by [facility], his highest level of education is 11th grade . Review of Systems All other systems reviewed negative except as stated in HPI Psychiatric: Reports depression, Reports lack of enjoyment, Reports mood swings , Reports paranoia, Reports sensing things others do not sense, Reports thoughts of hurting/killing yourself [facility] - History History Provided By: Patient - Medical History Medical History: Medical History (Last Reviewed 12/10/17 @ 19:47 by MUMTAZ [place]) Anxiety (Acute) Asthma (Acute) Schizo affective schizophrenia (Acute) - Tobacco History Second Hand Smoke Exposure: Yes Smoking Status: Heavy tobacco smoker Tobacco Type: Cigarettes Packs Per Day: 4 Cigarettes Per Day: 80.0 - Alcohol History How Often Do You Have a Drink Containing Alcohol: 4 or more times a week - Substance Use History Substance History: No History of Abuse - Travel History Recent Travel in the [place] Within the Last 8 Weeks: No Recent Travel Out of the Country Within the Last 8 Weeks: No Medications and Allergies Active Medications: Active Medications Al Hydrox/Mg Hydrox/Simethicone (Mag-Al Plus Susp Liq) 30 ml PO Q6H PRN PRN Reason: DYSPEPSIA Al Hydroxide/Mg Hydroxide (Milk Of Magnesia Liq) 30 ml PO Q12H PRN PRN Reason: Mild Constipation Bisacodyl (Dulcolax Supp) 10 mg RECTAL DAILY PRN PRN Reason: SEVERE CONSITIPATION Divalproex Sodium (Depakote Dr) 500 mg PO BID [facility] Last Admin: 12/11/17 11:27 Dose: 500 mg Lactulose (Lactulose Liq) 30 ml PO DAILY PRN PRN Reason: SEVERE CONSITIPATION Olanzapine (Zyprexa) 10 mg PO BID [facility] Last Admin: 12/11/17 11:28 Dose: 10 mg Ondansetron HCl (Zofran Odt) 4 mg PO Q6H PRN PRN Reason: nausea and vomiting Senna/Docusate Sodium (Mikki-Colace) 1 tab PO BID [facility] Sennosides (Senokot) 17.2 mg PO Q12H PRN PRN Reason: Moderate Constipation Allergies Allergy/AdvReac Type Severity Reaction Status Date / Time albuterol Allergy Severe Hives Verified 12/10/17 19:49 bupropion Allergy Intermediate hives Verified 12/10/17 19:49 Home Medications Medication Instructions Recorded Confirmed Type paliperidone palmitate [Invega 234 mg IM QMONTH 11/16/17 12/10/17 History Sustenna] Results - Labs CBC & Chem 7: 12/10/17 19:15 12/10/17 19:15 Labs: Laboratory Results - last 24 hr 12/10/17 12/10/17 12/10/17 19:15 19:15 19:15 WBC 6.3 RBC 5.01 Hgb 15.8 Hct 44.8 MCV 89.5 MCH 31.6 MCHC 35.3 RDW 13.0 Plt Count 198 MPV 7.0 Neut % (Auto) 58.6 Lymph % (Auto) 19.7 [place] % (Auto) 17.3 H Eos % (Auto) 3.7 Baso % (Auto) 0.7 Neut # (Auto) 3.7 Lymph # (Auto) 1.2 [place] # (Auto) 1.1 H Eos # (Auto) 0.2 Baso # (Auto) 0.0 WBC Differential . Differential Comment Auto diff final Sodium 138 Potassium 4.1 Chloride 105 Carbon Dioxide 24.7 Anion Gap 8 BUN 13 Creatinine 0.80 Estimated GFR Greater than 89 Random Glucose 99 Calcium 8.9 TSH 0.982 Urine Opiates Screen Ur Barbiturates Screen Valproic Acid 62 Ur Amphetamines Screen U Benzodiazepines Scrn Urine Cocaine Screen U Cannabinoids Screen Serum Alcohol Less than 3 12/10/17 20:09 WBC RBC Hgb Hct MCV MCH MCHC RDW Plt Count MPV Neut % (Auto) Lymph % (Auto) [place] % (Auto) Eos % (Auto) Baso % (Auto) Neut # (Auto) Lymph # (Auto) [place] # (Auto) Eos # (Auto) Baso # (Auto) WBC Differential Differential Comment Sodium Potassium Chloride Carbon Dioxide Anion Gap BUN Creatinine Estimated GFR Random Glucose Calcium TSH Urine Opiates Screen Neg Ur Barbiturates Screen Neg Valproic Acid Ur Amphetamines Screen Neg U Benzodiazepines Scrn Neg Urine Cocaine Screen Neg U Cannabinoids Screen Neg Serum Alcohol Exam Vital signs: Vital Signs 12/10/17 19:42 12/10/17 23:29 12/11/17 11:42 Temperature 99.3 F 98.7 F Pulse Rate 103 H 95 H 87 Respiratory Rate 20 18 20 Blood Pressure 137/88 122/57 L 130/74 Pulse Oximetry 95 97 94 L Intake & Output 12/10/17 12/11/17 12/11/17 18:59 06:59 18:59 Weight 90.718 kg Narrative: Patient is psychomotor retarded, but no EPS, no tremors, no catatonia Mental Status Examination Appearance: Appropriate Consciousness: Alert Orientation: x4 Motor Activity: Normal gait Speech: Unremarkable Language: Adequate Fund of Knowledge: Adequate Attention and Concentration: Adequate Memory: Unremarkable Mood: Sad Affect: Flat Thought Process & Associations: Intact Thought Content: Hallucinations, Preoccupations Hallucination Type: Auditory Delusion Type: Bizarre Suicidal Ideation: Yes Suicidal Plan: No Suicidal Intention: No Homicidal Ideation: No Homicidal Plan: No Homicidal Intention: No Insight: Poor Judgment: Poor Assessment and Plan - Assessment (1) Paranoid schizophrenia Code(s): F20.0 - Paranoid schizophrenia Status: Acute - Plan Plan: On psychiatric evaluation today the patient presents with depressive symptoms consisting in hopelessness, helplessness, anhedonia, decreased appetite, losing weight, persistent suicidal ideation with a plan of jumping off a bridge in the context of noncompliance with medications, poor family and social support, homelessness. He also presents commanding type auditory hallucinations. There is a patient with an extensive psychiatric history of schizoaffective disorder, psychiatric hospitalizations, frequent ER utilizer, personality pathology, conscious simulation, suicidal attempts, poor impulse control, with this moment has an elevated risk of danger to self. Will start Depakote 500 mg twice daily , olanzapine 10 mg twice daily. Patient may benefit of antidepressant. He will be admitted in psychiatry for stabilization and safety. Will order a psychiatric consult for second opinion per transfer patient to [address] unit. Justification for Continued Inpatient Stay: Commanding type auditory hallucinations, suicidal ideation
[2017-12-11] MEDS: Senna/Docusate Sodium 8.6/50 MG Tablet PO SCH (20:18)
[2017-12-12] MEDS: Divalproex 500 MG DR Tablet PO SCH ×2 (08:12→21:10)
[2017-12-12] MEDS: OLANZapine 10 MG Tablet PO SCH (08:12)
[2017-12-12] MEDS: Senna/Docusate Sodium 8.6/50 MG Tablet PO SCH ×2 (13:00→21:10)
[2017-12-12] MEDS ORDERED: Aluminum/Magnesium/Simethacone Susp 30 ML UDC PO PRN (16:15)
--- NOTE | 2017-12-12 16:21 | P.PNPSY ---
Subjective Remarks: Patient initially admitted by Dr. Aleman,'s H&P reviewed and agreed with. Dr. Aleman has done first opinion petition supporting [place]. Patient seen by me in the wong with medical student Polly Perez, patient did recognize me from prior hospitalizations remains quite psychotic paranoid intense labile saying that he is is having voices in his head telling him to kill himself. With that he needs medication. At this time I feel patient does meet criteria under the [place] act for involuntary psychiatric hospitalization. Thus I will cosign second opinion petition supporting [place] Review of Systems All other systems reviewed negative except as stated in HPI Mental Status Examination Appearance: Appropriate Consciousness: Alert Orientation: x4 Motor Activity: Normal gait Speech: Unremarkable Language: Adequate Fund of Knowledge: Adequate Attention and Concentration: Adequate Memory: Unremarkable Mood: Sad Affect: Flat Thought Process & Associations: Intact Thought Content: Hallucinations, Preoccupations Hallucination Type: Auditory Delusion Type: Bizarre Suicidal Ideation: Yes Suicidal Plan: No Suicidal Intention: No Homicidal Ideation: No Homicidal Plan: No Homicidal Intention: No Insight: Poor Judgment: Poor Assessment and Plan - Assessment (1) Paranoid schizophrenia Code(s): F20.0 - Paranoid schizophrenia Status: Acute - Plan Plan: Patient does meet criteri for involuntary hospitalization thus I will cosign second opinion petition supporting [place]. I have also finished the inpatient psychiatric template orders. Patient to complete continue his medications I will increase his olanzapine to 15 mg twice daily Justification for Continued Inpatient Stay: At this time patient would decompensate a place to a lower level of care Discharge Planning: To be determined
[2017-12-12] MEDS: OLANZapine 15 MG Tablet PO SCH (21:10)
[2017-12-13] MEDS: Divalproex 500 MG DR Tablet PO SCH ×2 (09:18→20:42)
[2017-12-13] MEDS: Senna/Docusate Sodium 8.6/50 MG Tablet PO SCH ×2 (09:18→20:42)
[2017-12-13] MEDS: OLANZapine 15 MG Tablet PO SCH ×2 (09:18→20:42)
--- NOTE | 2017-12-13 15:33 | P.PNPSY ---
Subjective Remarks: Patient seen in his room with nurse Maribel medical student Sharmin, chart reviewed , patient compliant medication. Patient calmer today his affect shows decreased range and intensity there is still appears distractible as if responding to internal stimuli. For now continue treatment no change Review of Systems All other systems reviewed negative except as stated in HPI Mental Status Examination Appearance: Appropriate Consciousness: Alert Orientation: x4 Motor Activity: Normal gait Speech: Unremarkable Language: Adequate Fund of Knowledge: Adequate Attention and Concentration: Adequate Memory: Unremarkable Mood: Sad Affect: Flat Thought Process & Associations: Intact Thought Content: Hallucinations, Preoccupations Hallucination Type: Auditory Delusion Type: Bizarre Suicidal Ideation: Yes Suicidal Plan: No Suicidal Intention: No Homicidal Ideation: No Homicidal Plan: No Homicidal Intention: No Insight: Poor Judgment: Poor Assessment and Plan - Assessment (1) Paranoid schizophrenia Code(s): F20.0 - Paranoid schizophrenia Status: Acute - Plan Plan: Patient continues psychotic delusional paranoid though his affect is softened somewhat. Continue treatment no change, medications have just been adjusted yesterday Justification for Continued Inpatient Stay: At this time patient would decompensate a place to a lower level of care Discharge Planning: To be determined
[2017-12-13] MEDS: Acetaminophen 325 MG Tablet PO PRN ×2 (18:01→18:17)
[2017-12-14] MEDS: Divalproex 500 MG DR Tablet PO SCH ×2 (08:13→20:31)
[2017-12-14] MEDS: Senna/Docusate Sodium 8.6/50 MG Tablet PO SCH ×2 (08:15→20:31)
[2017-12-14] MEDS: OLANZapine 15 MG Tablet PO SCH ×2 (08:16→20:31)
--- NOTE | 2017-12-14 16:58 | P.PNPSY ---
Subjective Remarks: Reviewed electronic medical records and discussed case with staff. Follow-up was conducted in the exam room with YULI Almaraz present. Patient reports that he is "not feeling good" but states that it is due to his flu. He does report that he is drinking lots of fluid. States that he sleeping okay and his appetite is been good. His nurse reports she has had no behaviors today and has been compliant with his medications. Mental Status Examination Appearance: Appropriate Consciousness: Alert Orientation: x4 Motor Activity: Normal gait Speech: Unremarkable Language: Adequate Fund of Knowledge: Adequate Attention and Concentration: Adequate Memory: Unremarkable Mood: Sad Affect: Flat Thought Process & Associations: Intact Thought Content: Hallucinations, Preoccupations Hallucination Type: Auditory Delusion Type: Bizarre Suicidal Ideation: Yes Suicidal Plan: No Suicidal Intention: No Homicidal Ideation: No Homicidal Plan: No Homicidal Intention: No Insight: Poor Judgment: Poor Assessment and Plan - Assessment (1) Paranoid schizophrenia Code(s): F20.0 - Paranoid schizophrenia Status: Acute - Plan Plan: Patient will be reevaluated Saturday by the attending psychiatrist. Continue with current treatment plan. Justification for Continued Inpatient Stay: Moving this patient to a less restrictive environment would likely result in decompensation.
[2017-12-14] MEDS: Acetaminophen 325 MG Tablet PO PRN (20:31)
[2017-12-15] MEDS: Senna/Docusate Sodium 8.6/50 MG Tablet PO SCH ×2 (08:44→20:31)
[2017-12-15] MEDS: Divalproex 500 MG DR Tablet PO SCH ×2 (08:44→20:31)
[2017-12-15] MEDS: OLANZapine 15 MG Tablet PO SCH ×2 (08:44→20:31)
[2017-12-15] MEDS: Acetaminophen 325 MG Tablet PO PRN ×3 (09:05→18:47)
--- NOTE | 2017-12-15 15:28 | P.PNPSY ---
Subjective Remarks: Reviewed electronic medical records and discussed case with staff. Follow-up was conducted in the hallway with YULI Kwok present. Patient continuously repeats , " I am suicidal." He has no plan . When you give him attention he states that he no longer suicidal. He is eating and sleeping well. Review of Systems All other systems reviewed negative except as stated in HPI Mental Status Examination Appearance: Appropriate Consciousness: Alert Orientation: x4 Motor Activity: Normal gait Speech: Unremarkable Language: Adequate Fund of Knowledge: Adequate Attention and Concentration: Adequate Memory: Unremarkable Mood: Sad Affect: Flat Thought Process & Associations: Intact Thought Content: Hallucinations, Preoccupations Hallucination Type: Auditory Delusion Type: Bizarre Suicidal Ideation: Yes Suicidal Plan: No Suicidal Intention: No Homicidal Ideation: No Homicidal Plan: No Homicidal Intention: No Insight: Poor Judgment: Poor Assessment and Plan - Assessment (1) Schizophrenia Code(s): F20.9 - Schizophrenia, unspecified Status: Acute - Plan Plan: Patient will be reevaluated Saturday by the attending psychiatrist. Continue with current treatment plan. Justification for Continued Inpatient Stay: Moving patient to a less restrictive environment may result in his decompensation.
[2017-12-16] MEDS: Divalproex 500 MG DR Tablet PO SCH ×2 (08:04→20:10)
[2017-12-16] MEDS: Senna/Docusate Sodium 8.6/50 MG Tablet PO SCH ×2 (08:04→20:10)
[2017-12-16] MEDS: OLANZapine 15 MG Tablet PO SCH ×2 (08:04→20:09)
[2017-12-16] MEDS: Acetaminophen 325 MG Tablet PO PRN ×3 (08:04→21:29)
--- NOTE | 2017-12-16 08:56 | P.TTN ---
- Patient Problems Problems: 1. Discharge planning 2. Medication compliance 3. Knowledge deficit 4. Lack of coping skills - Progress Toward Goals Provider Present: Dr. Arthur Vincent (Dr. Vincent is titrating medications, Dr. Vincent may seek state hospitalization, Dr. Vincent intends to take the patient to [place] court this week to advocate for further stabilization.) Psychiatric Counselors Present: Timoteo Schofield Jr., [facility] (Timoteo establish contact with the fact team [facility] act. Patient will return to semi- independent living upon discharge where he is followed by the fact team.) Group Spec/RT/OT/MORALES Present: CARMEN Ga (Patient attends select groups ) - Documentation Teaching Recipient: Patient
--- NOTE | 2017-12-16 15:48 | P.PNPSY ---
Subjective Remarks: Patient seen and wong with floor staff, chart reviewed, patient compliant medication. Patient Depakote level was 62 on 12/10. And 500 mg twice daily. Will increase to 500 mg a.m. 750 mg p.m. check a blood level over in 3 days. Patient continues intrusive now stating that he wants to go to [place]. The voices persist and are disturbing. His hygiene remains poor and he is somewhat malodorous. There is marked perseveration in his requests also with his level of retention of her contact is quite poor we will start state referral packet Review of Systems All other systems reviewed negative except as stated in HPI Mental Status Examination Appearance: Appropriate Consciousness: Alert Orientation: x4 Motor Activity: Normal gait Speech: Unremarkable Language: Adequate Fund of Knowledge: Adequate Attention and Concentration: Adequate Memory: Unremarkable Mood: Sad Affect: Flat Thought Process & Associations: Intact Thought Content: Hallucinations, Preoccupations Hallucination Type: Auditory Delusion Type: Bizarre Suicidal Ideation: Yes Suicidal Plan: No Suicidal Intention: No Homicidal Ideation: No Homicidal Plan: No Homicidal Intention: No Insight: Poor Judgment: Poor Assessment and Plan - Assessment (1) Paranoid schizophrenia Code(s): F20.0 - Paranoid schizophrenia Status: Acute - Plan Plan: Patient continues psychotic delusional paranoid we will start state referral packet. Please see medication adjustments above Justification for Continued Inpatient Stay: At this time patient would decompensate a place to the lower level of care Discharge Planning: Start state referral packet
[2017-12-16] MEDS: Divalproex 250 MG DR Tablet PO SCH (20:10)
[2017-12-17] MEDS: OLANZapine 15 MG Tablet PO SCH ×2 (09:11→20:02)
[2017-12-17] MEDS: Acetaminophen 325 MG Tablet PO PRN ×3 (09:11→20:07)
[2017-12-17] MEDS: Senna/Docusate Sodium 8.6/50 MG Tablet PO SCH ×2 (09:11→19:59)
[2017-12-17] MEDS: Divalproex 500 MG DR Tablet PO SCH ×2 (09:12→20:01)
--- NOTE | 2017-12-17 11:29 | P.PNPSY ---
Subjective Remarks: Patient seen in the quite room with medical student Sharmin. Chart reviewed. Patient resting quite warm after getting upset with behavior of his roommate and the 3 bed bedroom. Patient continues to voice thoughts about dying. The continues auditory hallucinations. He continues to wish to be sent to the [facility]. He is also complaining of some cough congestion and chest pain. We will have the hospitalist consult will us about that. We will add Ativan 0.5 mg 3 times daily to his regimen patient continues quite anxious related to his psychosis and his delusions. Perhaps this will help. Review of Systems All other systems reviewed negative except as stated in HPI Mental Status Examination Appearance: Appropriate Consciousness: Alert Orientation: x4 Motor Activity: Normal gait Speech: Unremarkable Language: Adequate Fund of Knowledge: Adequate Attention and Concentration: Adequate Memory: Unremarkable Mood: Sad Affect: Flat Thought Process & Associations: Intact Thought Content: Hallucinations, Preoccupations Hallucination Type: Auditory Delusion Type: Bizarre Suicidal Ideation: Yes Suicidal Plan: No Suicidal Intention: No Homicidal Ideation: No Homicidal Plan: No Homicidal Intention: No Insight: Poor Judgment: Poor Assessment and Plan - Assessment (1) Paranoid schizophrenia Code(s): F20.0 - Paranoid schizophrenia Status: Acute - Plan Plan: Patient continues psychotic with vague suicidal ideation that waxes and wanes. He is also continues somewhat scruffy is willing to have a history of his hair in his downs, we will have the hospitalist consult will us between his congestion cough and vague chest pain. We will also add Ativan scheduled to observe this will help with his significant anxiety Justification for Continued Inpatient Stay: At this time patient would decompensate a place to a lower level of care Discharge Planning: To be determined state referral packet has been sent
[2017-12-17] MEDS: LORazepam 0.5 MG Tablet PO SCH ×2 (12:50→17:20)
--- NOTE | 2017-12-17 17:26 | P.CON ---
History of Present Illness Service: [facility] Consult date: 12/17/17 Requesting Physician: Terrell Dominguez Reason for Consult: cough, congestion Primary Care Provider: No Primary Care Physician Family Provider: No Primary Care Physician Chief Complaint: Cough, runny nose, congestion History of Present Illness: This is a 37-year-old male with past medical history of schizophrenia and multiple psychiatric admissions, asthma, anxiety, tobacco abuse. Initially presented to the emergency room on 12/10/2017 under a [place], patient had not been taking medications. Voiced suicidal ideation. Patient has been complaining of cough, nasal congestion with runny nose, sinus pressure, no fever , occasional chills. Has noted increased wheezing especially at night. Indicates that symptoms have been ongoing for 2 weeks. Has a history of asthma , not on any medications at home. Indicates nasal drainage is clear. No chest pain, no dyspnea with exertion. Patient is examined in the presence of the RN, he is cooperative. Hospitalist services are requested for medical management. Review of Systems All other systems reviewed negative except as stated in HPI [facility] - History History Provided By: Patient - Medical History Medical History: Medical History (Last Reviewed 12/17/17 @ 17:25 by MUMTAZ Parra) Anxiety (Acute) Asthma (Acute) Schizo affective schizophrenia (Acute) - Surgical History Surgical History: Surgical History (Last Updated 12/17/17 @ 17:26 by MUMTAZ Parra) No pertinent past surgical history - Social History I have reviewed the patient's Social History: Yes - Tobacco History Second Hand Smoke Exposure: Yes Tobacco Use In Past 30 Days: Yes Smoking Status: Current every day smoker Tobacco Type: Cigarettes Packs Per Day: 4 Cigarettes Per Day: 80.0 - Alcohol History How Often Do You Have a Drink Containing Alcohol: Never - Substance Use History Substance History: No History of Abuse - Travel History Recent Travel in the [place] Within the Last 8 Weeks: No Recent Travel Out of the Country Within the Last 8 Weeks: No - Immunization History Tetanus Immunization: Unsure Hx Influenza Vaccine This Season: Unable to Assess Medications and Allergies Active Medications: Active Medications Acetaminophen (Tylenol) 650 mg PO Q4H PRN PRN Reason: Pain 1-5 or Temp >101F Last Admin: 12/17/17 13:58 Dose: 650 mg Al Hydrox/Mg Hydrox/Simethicone (Mag-Al Plus Susp Liq) 30 ml PO Q6H PRN PRN Reason: DYSPEPSIA Al Hydroxide/Mg Hydroxide (Milk Of Magnesia Liq) 30 ml PO Q12H PRN PRN Reason: Mild Constipation Bisacodyl (Dulcolax Supp) 10 mg RECTAL DAILY PRN PRN Reason: SEVERE CONSITIPATION Cetirizine HCl (Zyrtec) 10 mg PO HS [facility] Diphenhydramine HCl (Benadryl) 50 mg PO HS PRN PRN Reason: INSOMNIA Last Admin: 12/16/17 20:10 Dose: 50 mg Divalproex Sodium (Depakote Dr) 500 mg PO HS [facility] Last Admin: 12/16/17 20:10 Dose: 500 mg Divalproex Sodium (Depakote Dr) 500 mg PO DAILY [facility] Last Admin: 12/17/17 09:12 Dose: 500 mg Divalproex Sodium (Depakote Dr) 250 mg PO HS [facility] Last Admin: 12/16/17 20:10 Dose: 250 mg Fluticasone Propionate (Flonase Nasal [place]) 2 spray NASAL DAILY [facility] Last Admin: 12/17/17 17:19 Dose: 2 spray Guaifenesin/Dextromethorphan (Robitussin Dm 200/20 Mg/10 Ml Liq) 10 ml PO Q6H PRN PRN Reason: COUGH Hydroxyzine HCl (Atarax) 50 mg PO Q6H PRN PRN Reason: ANXIETY Last Admin: 12/17/17 09:11 Dose: 50 mg Ipratropium Marcellus (Atrovent Neb) 0.5 mg INH Q6HR NEB PRN PRN Reason: WHEEZING Lactulose (Lactulose Liq) 30 ml PO DAILY PRN PRN Reason: SEVERE CONSITIPATION Lorazepam (Ativan) 0.5 mg PO TID [facility] Last Admin: 12/17/17 17:20 Dose: 0.5 mg Olanzapine (Zyprexa) 15 mg PO BID [facility] Last Admin: 12/17/17 09:11 Dose: 15 mg Ondansetron HCl (Zofran Odt) 4 mg PO Q6H PRN PRN Reason: nausea and vomiting Senna/Docusate Sodium (Mikki-Colace) 1 tab PO BID [facility] Last Admin: 12/17/17 09:11 Dose: 1 tab Sennosides (Senokot) 17.2 mg PO Q12H PRN PRN Reason: Moderate Constipation Allergies Allergy/AdvReac Type Severity Reaction Status Date / Time albuterol Allergy Severe Hives Verified 12/10/17 19:49 bupropion Allergy Intermediate hives Verified 12/10/17 19:49 Home Medications Medication Instructions Recorded Confirmed Type paliperidone palmitate [Invega 234 mg IM QMONTH 11/16/17 12/10/17 History Sustenna] Physical Exam Vital signs: Vital Signs 12/17/17 06:11 Pulse Rate 66 Respiratory Rate 17 Blood Pressure 113/65 Pulse Oximetry 95 Narrative: GENERAL: Well-nourished, well-developed patient in no apparent distress. SKIN: Warm and dry. HEAD: Atraumatic. Normocephalic. EYES: Pupils equal and round. No scleral icterus. No injection or drainage. ENT: Clear nasal drainage. Nasal mucosa moderately erythematous. Mucous membranes pink and moist. NECK: Trachea midline. No JVD. CARDIOVASCULAR: Regular rate and rhythm. RESPIRATORY:Expiratory wheezes upper lobes, no accessory muscle use. GASTROINTESTINAL: Abdomen soft, non-tender, nondistended. Hepatic and splenic margins not palpable. MUSCULOSKELETAL: Extremities without clubbing, cyanosis, or edema. No obvious deformities. NEUROLOGICAL: Awake, alert oriented x3. No focal deficits. PSYCHIATRIC: Anxious, but otherwise cooperative during examination. Assessment and Plan - Plan 37-year-old male with history of schizophrenia, multiple psychiatric admissions. Presented under [place] for suicidal ideation. Complains of 2 weeks of cough with nasal congestion, wheezing at night, chills, no fever, nasal pressure. History of asthma, prior tobacco abuse. Paranoid schizophrenia with suicidal ideation -Per psychiatric management Possible allergic rhinitis, versus upper respiratory infection (viral) -We will check portable chest x-ray We will order Flonase 2 puffs daily Ipratropium nebs every 6 as needed, allergic to albuterol develops hives -Robitussin 10 mL's every 6 as needed for cough. -Zyrtec 10 mg p.o. nightly -We will check CBC in the morning No DVT prophylaxis required, patient ambulatory Thank you for consultation and for allowing us to participate in the care of this patient. Code Status: Full code Discussed Condition With: RN, patient Discharge Planning: DC planning per primary care team
--- NOTE | 2017-12-17 18:11 | XR ---
EXAM DATE: 12/17/2017 12:00 AM EDT AGE/SEX: 37 years / Male INDICATIONS: Cough and wheezing. CLINICAL DATA: This is the patient's initial encounter. Patient reports that signs and symptoms have been present for 3 days and indicates a pain score of 0/10. MEDICAL/SURGICAL HISTORY: None. Abdominal aortic aneurysm repair. COMPARISON: No prior exams available for comparison. FINDINGS: A single AP view of the chest demonstrates the lungs to be symmetrically aerated without evidence of mass, infiltrate or effusion. The cardiomediastinal contours are unremarkable. Osseous structures a re intact. CONCLUSION: No evidence of acute cardiopulmonary disease. Electronically signed by: Tor Brink MD 12/17/2017 6:10 PM EDT
[2017-12-17] MEDS: Divalproex 250 MG DR Tablet PO SCH (20:00)
[2017-12-17] MEDS: guaiFENesin/Dextromethorphan 200 MG/20 MG 10 ML UDC PO PRN (20:19)
[2017-12-18] MEDS: OLANZapine 15 MG Tablet PO SCH ×2 (09:08→20:08)
[2017-12-18] MEDS: Divalproex 500 MG DR Tablet PO SCH ×2 (09:08→20:07)
[2017-12-18] MEDS: Senna/Docusate Sodium 8.6/50 MG Tablet PO SCH ×2 (09:08→20:07)
[2017-12-18] MEDS: LORazepam 0.5 MG Tablet PO SCH ×3 (09:08→17:25)
[2017-12-18 09:11] LABS: Hematocrit 43.6 % (39.0-51.0); Hemoglobin 15.4 gm/dL (13.0-17.0); Mean Corpuscular HGB Conc 35.5 % (32.0-36.0); Mean Corpuscular Hemoglobin 31.1 pg (27.0-34.0); Mean Corpuscular Volume 87.7 fL (80.0-100.0); Mean Platelet Volume 6.7 fL (7.0-11.0); Platelet Count 257 th/mm3 (150-450); Red Blood Count 4.97 mil/mm3 (4.50-5.90); Red Cell Distribution Width 12.8 % (11.6-17.2); White Blood Count 5.4 th/mm3 (4.0-11.0)
--- NOTE | 2017-12-18 09:23 | P.TTN ---
- Patient Problems Problems: 1. Discharge planning 2. Medication compliance 3. Knowledge deficit 4. Lack of coping skills - Progress Toward Goals Provider Present: Dr. Arthur Vincent (Dr. Vincent is titrating medications, Dr. Vincent may seek state hospitalization, Dr. Vincent intends to take the patient to [place] this week to advocate for further stabilization. Patient still appears internally stimulated treatment team will advocate for further stabilization and [place] tomorrow with a long-term plan of patient being placed at the [facility] for long-term stabilization.) Psychiatric Counselors Present: Timoteo Schofield Jr., [facility] (Timoteo establish contact with the fact team [facility]. Patient will return to semi- independent living upon discharge where he is followed by the fact team. Counselor is working with fact team correctional case manager Josette to advocate in court tomorrow for long-term stabilization at the [facility]. Josette reports she will be attendance to advocate for further stabilization.) Group Spec/RT/OT/MORALES Present: JERAD Burris (Patient attends select groups and has difficulty tolerating most activities.), CARMEN Ga ( Patient attends select groups) - Documentation Teaching Recipient: Patient
[2017-12-18] MEDS: Acetaminophen 325 MG Tablet PO PRN ×3 (10:31→20:06)
--- NOTE | 2017-12-18 11:28 | P.PNPSY ---
Subjective Remarks: Patient seen in his room with floor staff. Chart review, patient compliant medication. Patient did allow his hearing very to be trimmed he appears to appreciate the appearance. However he still voices a desire to go to the [facility]. He still vague about any voices and has had thoughts of suicidality. Patient is scheduled for [place] tomorrow patient continues to isolate though today he is calm and not as intrusive with a decreased range and intensity of his affect. Review of Systems All other systems reviewed negative except as stated in HPI Mental Status Examination Appearance: Appropriate Consciousness: Alert Orientation: x4 Motor Activity: Normal gait Speech: Unremarkable Language: Adequate Fund of Knowledge: Adequate Attention and Concentration: Adequate Memory: Unremarkable Mood: Sad Affect: Flat Thought Process & Associations: Intact Thought Content: Hallucinations, Preoccupations Hallucination Type: Auditory Delusion Type: Bizarre Suicidal Ideation: Yes Suicidal Plan: No Suicidal Intention: No Homicidal Ideation: No Homicidal Plan: No Homicidal Intention: No Insight: Poor Judgment: Poor Assessment and Plan - Assessment (1) Paranoid schizophrenia Code(s): F20.0 - Paranoid schizophrenia Status: Acute - Plan Plan: Patient remained psychotic delusional though his presentation is somewhat softer today, compliant medication. Patient scheduled for [place] tomorrow Justification for Continued Inpatient Stay: At this time patient would decompensate a place to a lower level of care Discharge Planning: Patient refer to [facility]
--- NOTE | 2017-12-18 15:09 | P.PN ---
Subjective Interval history: Follow up for nasal congestion, poss allergic rhinitis, viral URI: Pt. examined with RN. Ambulatory, cooperative. States he feels better today, less cough and rhinorrhea. C/O wheezing, asking for treatment. No fever, no cp, no sob. Physical Exam Vital signs: Vital Signs 12/17/17 16:00 12/17/17 21:29 12/18/17 06:00 Temperature 97.8 F Pulse Rate 90 92 H Respiratory Rate 18 16 17 Blood Pressure 163/74 H 129/78 Pulse Oximetry 94 L 96 Narrative: GENERAL: Well-nourished, well-developed patient in no apparent distress. SKIN: Warm and dry. HEAD: Atraumatic. Normocephalic. EYES: Pupils equal and round. No scleral icterus. No injection or drainage. ENT: Clear nasal drainage. Nasal mucosa moderately erythematous. Mucous membranes pink and moist. NECK: Trachea midline. No JVD. CARDIOVASCULAR: Regular rate and rhythm. RESPIRATORY: diffuse exp. wheezing and scattered ronchi upper lobes GASTROINTESTINAL: Abdomen soft, non-tender, nondistended. Hepatic and splenic margins not palpable. MUSCULOSKELETAL: Extremities without clubbing, cyanosis, or edema. No obvious deformities. NEUROLOGICAL: Awake, alert oriented x3. No focal deficits. PSYCHIATRIC: Anxious, but otherwise cooperative during examination. Results - Labs CBC & Chem 7: 12/18/17 07:40 12/10/17 19:15 Laboratory Results - last 24 hr 12/18/17 07:40 WBC 5.4 RBC 4.97 Hgb 15.4 Hct 43.6 MCV 87.7 MCH 31.1 MCHC 35.5 RDW 12.8 Plt Count 257 MPV 6.7 L - Imaging Impressions Chest X-Ray 12/17/17 00:00 CONCLUSION: No evidence of acute cardiopulmonary disease. Assessment and Plan - Plan 37-year-old male with history of schizophrenia, multiple psychiatric admissions. Presented under [place] for suicidal ideation. Complains of 2 weeks of cough with nasal congestion, wheezing at night, chills, no fever, nasal pressure. History of asthma, prior tobacco abuse. Paranoid schizophrenia with suicidal ideation -Per psychiatric management Possible allergic rhinitis, versus upper respiratory infection (viral) -CXR reviewed, no acute findings. Continue Flonase 2 puffs daily Ipratropium nebs every 6 as needed, allergic to albuterol develops hives. RN to call RT to give tx -Robitussin 10 mL's every 6 as needed for cough. -Zyrtec 10 mg p.o. nightly -CBC reviewed, no leukocytosis No DVT prophylaxis required, patient ambulatory Improving some, will reassess in am. If wheezing persists. May need short course of PO steroids Code Status: Full code Discussed Condition With: RN, pt. Discharge Planning: DC planning per primary care team
[2017-12-18] MEDS: guaiFENesin/Dextromethorphan 200 MG/20 MG 10 ML UDC PO PRN (17:35)
[2017-12-18] MEDS: Divalproex 250 MG DR Tablet PO SCH (20:07)
[2017-12-19] MEDS: OLANZapine 15 MG Tablet PO SCH ×2 (09:13→20:29)
[2017-12-19] MEDS: Senna/Docusate Sodium 8.6/50 MG Tablet PO SCH ×2 (09:13→20:30)
[2017-12-19] MEDS: LORazepam 0.5 MG Tablet PO SCH ×3 (09:13→17:12)
[2017-12-19] MEDS: Divalproex 500 MG DR Tablet PO SCH ×2 (09:14→20:35)
[2017-12-19] MEDS: Acetaminophen 325 MG Tablet PO PRN ×3 (09:18→17:12)
--- NOTE | 2017-12-19 12:29 | P.PNPSY ---
Subjective Remarks: Patient is seen [place] with his act therapeutic case manager. Patient retained by Rcok Mejia. With praneeth to be guardian advocate. Patient Depakote blood level drawn this morning was 30. We will increase Depakote to 500 mg a.m. 1000 mg at bedtime and recheck blood level in about 3 days. Patient continues to wish to go to [place]. Remains delusional paranoid with vague suicidal ideation. Review of Systems All other systems reviewed negative except as stated in HPI Mental Status Examination Appearance: Appropriate Consciousness: Alert Orientation: x4 Motor Activity: Normal gait Speech: Unremarkable Language: Adequate Fund of Knowledge: Adequate Attention and Concentration: Adequate Memory: Unremarkable Mood: Sad Affect: Flat Thought Process & Associations: Intact Thought Content: Hallucinations, Preoccupations Hallucination Type: Auditory Delusion Type: Bizarre Suicidal Ideation: Yes Suicidal Plan: No Suicidal Intention: No Homicidal Ideation: No Homicidal Plan: No Homicidal Intention: No Insight: Poor Judgment: Poor Assessment and Plan - Assessment (1) Paranoid schizophrenia Code(s): F20.0 - Paranoid schizophrenia Status: Acute - Plan Plan: Patient remained psychotic paranoid and delusional, patient retained by Rock dacosta to be guardian advocate. She medication adjustments above Justification for Continued Inpatient Stay: At this time patient would decompensate a place to a lower level of care Discharge Planning: Continue to await word from [facility] placement
[2017-12-19] MEDS: guaiFENesin/Dextromethorphan 200 MG/20 MG 10 ML UDC PO PRN (17:37)
[2017-12-20] MEDS: Divalproex 500 MG DR Tablet PO SCH ×2 (09:09→20:15)
[2017-12-20] MEDS: Senna/Docusate Sodium 8.6/50 MG Tablet PO SCH ×2 (09:09→20:08)
[2017-12-20] MEDS: LORazepam 0.5 MG Tablet PO SCH ×3 (09:09→17:52)
[2017-12-20] MEDS: OLANZapine 15 MG Tablet PO SCH ×2 (09:09→20:08)
--- NOTE | 2017-12-20 13:05 | P.PNPSY ---
Subjective Remarks: Patient seen and wong with medical student Sharmin, chart reviewed, patient compliant medication. Patient today is somewhat more arouse intensive paranoid intrusive with a very wide eye intense eye contact. He says the voices are worse today and he wants to hurt himself. Patient continues markedly psychotic delusional paranoid. We will do following medication adjustments. Will condense the Zyprexa to 30 mg at at bedtime. We will add Resporal 2 mg p.o. twice daily to the regimen. Hopefully he will compliant tolerate the Resporal consider possible in [place] sustain injection next week Review of Systems All other systems reviewed negative except as stated in HPI Mental Status Examination Appearance: Appropriate Consciousness: Alert Orientation: x4 Motor Activity: Normal gait Speech: Unremarkable, Pressured, Rapid, Hesitant, Stuttering Language: Adequate Fund of Knowledge: Inadequate Attention and Concentration: Adequate (4) Memory: Unremarkable Mood: Sad, Anxious, Irritable Affect: Other (Slight increased range and intensity) Thought Process & Associations: Intact Thought Content: Hallucinations, Preoccupations Hallucination Type: Auditory Delusion Type: Bizarre Suicidal Ideation: Yes Suicidal Plan: No Suicidal Intention: No Homicidal Ideation: No Homicidal Plan: No Homicidal Intention: No Insight: Poor Judgment: Poor Assessment and Plan - Assessment (1) Paranoid schizophrenia Code(s): F20.0 - Paranoid schizophrenia Status: Acute - Plan Plan: Patient continues paranoid psychotic and delusional C medication adjustments above Justification for Continued Inpatient Stay: At this time patient would decompensate a place to a lower level of care Discharge Planning: To be determined the [facility] hospital packet has been sent
[2017-12-20] MEDS: Acetaminophen 325 MG Tablet PO PRN (18:49)
[2017-12-21] MEDS: LORazepam 0.5 MG Tablet PO SCH ×3 (08:29→17:38)
[2017-12-21] MEDS: Divalproex 500 MG DR Tablet PO SCH ×2 (08:29→20:04)
[2017-12-21] MEDS: Acetaminophen 325 MG Tablet PO PRN ×3 (09:29→22:18)
[2017-12-21] MEDS: Senna/Docusate Sodium 8.6/50 MG Tablet PO SCH ×2 (13:12→20:03)
--- NOTE | 2017-12-21 18:42 | P.PNPSY ---
Subjective Remarks: Reviewed electronic medical records and discussed case with staff. Follow-up was conducted in the hallway. I was contacted on another unit the patient was extremely upset and stating that he felt suicidal. When I entered the unit he approached me and stated "I am afraid I am going to murder myself." Patient was alternately tearful and anxious. He was perseverating on receiving an IM. I did consent to give him IM Ativan and his afternoon p.o. dose was skipped. Once he had come down explained to him that the p.o. would be a better alternative as it would last a little longer. He consents to try to take the oral medication tonight tomorrow morning and see how it makes him feel Mental Status Examination Appearance: Appropriate Consciousness: Alert Orientation: x4 Motor Activity: Normal gait Speech: Unremarkable, Pressured, Rapid, Hesitant, Stuttering Language: Adequate Fund of Knowledge: Inadequate Attention and Concentration: Adequate (4) Memory: Unremarkable Mood: Sad, Anxious, Irritable Affect: Other (Slight increased range and intensity) Thought Process & Associations: Intact Thought Content: Hallucinations, Preoccupations Hallucination Type: Auditory Delusion Type: Bizarre Suicidal Ideation: Yes Suicidal Plan: No Suicidal Intention: No Homicidal Ideation: No Homicidal Plan: No Homicidal Intention: No Insight: Poor Judgment: Poor Assessment and Plan - Assessment (1) Paranoid schizophrenia Code(s): F20.0 - Paranoid schizophrenia Status: Acute - Plan Plan: Patient will be reevaluated Saturday by the attending psychiatrist. Continue with current treatment plan. Justification for Continued Inpatient Stay: Moving this patient to a less restrictive environment would likely result in decompensation.
[2017-12-21] MEDS: OLANZapine 15 MG Tablet PO SCH (20:03)
[2017-12-22] MEDS: Divalproex 500 MG DR Tablet PO SCH ×2 (08:44→20:34)
[2017-12-22] MEDS: LORazepam 0.5 MG Tablet PO SCH ×3 (08:44→17:24)
[2017-12-22] MEDS: Senna/Docusate Sodium 8.6/50 MG Tablet PO SCH ×2 (08:44→20:34)
[2017-12-22] MEDS: Acetaminophen 325 MG Tablet PO PRN ×4 (08:51→21:05)
--- NOTE | 2017-12-22 15:58 | P.PNPSY ---
Subjective Remarks: Reviewed electronic medical records and discussed case with staff. Follow-up was conducted in the hallway with YULI Hernández present. Initially, when I came on to the unit patient was screaming as he walked up and down the hallway he reports that this is due to stimulation from other patients on the unit. Upon examination, patient is much calmer although he does continue to pace up and down in the wong. He admits that that oral Ativan worked just as well as the injections and promises going forward to take the oral medication. States that he sleeping well his appetite is been good. Mental Status Examination Appearance: Appropriate Consciousness: Alert Orientation: x4 Motor Activity: Normal gait Speech: Unremarkable, Pressured, Rapid, Hesitant, Stuttering Language: Adequate Fund of Knowledge: Inadequate Attention and Concentration: Adequate (4) Memory: Unremarkable Mood: Sad, Anxious, Irritable Affect: Other (Slight increased range and intensity) Thought Process & Associations: Intact Thought Content: Hallucinations, Preoccupations Hallucination Type: Auditory Delusion Type: Bizarre Suicidal Ideation: Yes Suicidal Plan: No Suicidal Intention: No Homicidal Ideation: No Homicidal Plan: No Homicidal Intention: No Insight: Poor Judgment: Poor Assessment and Plan - Assessment (1) Paranoid schizophrenia Code(s): F20.0 - Paranoid schizophrenia Status: Acute - Plan Plan: Patient will be reevaluated Saturday by the attending psychiatrist. Continue with current treatment plan. Justification for Continued Inpatient Stay: Moving this patient to a less restrictive environment would likely result in decompensation.
[2017-12-22] MEDS: OLANZapine 15 MG Tablet PO SCH (20:34)
[2017-12-23] MEDS: LORazepam 0.5 MG Tablet PO SCH ×3 (08:31→18:13)
[2017-12-23] MEDS: Acetaminophen 325 MG Tablet PO PRN ×3 (08:32→21:30)
[2017-12-23] MEDS: Divalproex 500 MG DR Tablet PO SCH ×2 (08:32→20:27)
[2017-12-23] MEDS: Senna/Docusate Sodium 8.6/50 MG Tablet PO SCH ×2 (12:32→20:27)
--- NOTE | 2017-12-23 15:27 | P.PNPSY ---
Subjective Remarks: Patient seen and wong with nurse Maribel and medical student Janine. Patient continues intrusive loud paranoid continues to state he hears voices. And that he is suicidal. Patient's Depakote level drawn on 12/22 came back at 39. We will increase a.m. Depakote to 750 mg continue at bedtime at 1000 mg and check a blood level on 12/27 Review of Systems All other systems reviewed negative except as stated in HPI Mental Status Examination Appearance: Appropriate Consciousness: Alert Orientation: x4 Motor Activity: Normal gait Speech: Unremarkable, Pressured, Rapid, Hesitant, Stuttering Language: Adequate Fund of Knowledge: Inadequate Attention and Concentration: Adequate (4) Memory: Unremarkable Mood: Sad, Anxious, Irritable Affect: Other (Slight increased range and intensity) Thought Process & Associations: Intact Thought Content: Hallucinations, Preoccupations Hallucination Type: Auditory Delusion Type: Bizarre Suicidal Ideation: Yes Suicidal Plan: No Suicidal Intention: No Homicidal Ideation: No Homicidal Plan: No Homicidal Intention: No Insight: Poor Judgment: Poor Assessment and Plan - Assessment (1) Paranoid schizophrenia Code(s): F20.0 - Paranoid schizophrenia Status: Acute - Plan Plan: Patient remained psychotic delusional paranoid, difficult blood level is quite low we will increase a.m. Depakote by 250 mg Justification for Continued Inpatient Stay: At this time patient would decompensate a place to a lower level of care Discharge Planning: To be determined continue to await word from [facility] referral
[2017-12-23] MEDS: OLANZapine 15 MG Tablet PO SCH (20:26)
[2017-12-24] MEDS: Acetaminophen 325 MG Tablet PO PRN ×3 (09:39→22:26)
[2017-12-24] MEDS: Divalproex 250 MG DR Tablet PO SCH (09:40)
[2017-12-24] MEDS: LORazepam 0.5 MG Tablet PO SCH ×2 (09:40→13:34)
[2017-12-24] MEDS: Senna/Docusate Sodium 8.6/50 MG Tablet PO SCH ×2 (13:34→20:12)
--- NOTE | 2017-12-24 15:19 | P.PNPSY ---
Subjective Remarks: Patient seen in day room with medical students Sharmin and Rohit, chart reviewed , patient compliant medicine. Patient somewhat calmer today still perseverating about voices suicidality and desire to get further injectables. However he is redirectable. For now continue treatment Review of Systems All other systems reviewed negative except as stated in HPI Mental Status Examination Appearance: Appropriate Consciousness: Alert Orientation: x4 Motor Activity: Normal gait Speech: Unremarkable, Pressured, Rapid, Hesitant, Stuttering Language: Adequate Fund of Knowledge: Inadequate Attention and Concentration: Adequate (4) Memory: Unremarkable Mood: Sad, Anxious, Irritable Affect: Other (Slight increased range and intensity) Thought Process & Associations: Intact Thought Content: Hallucinations, Preoccupations Hallucination Type: Auditory Delusion Type: Bizarre Suicidal Ideation: Yes Suicidal Plan: No Suicidal Intention: No Homicidal Ideation: No Homicidal Plan: No Homicidal Intention: No Insight: Poor Judgment: Poor Assessment and Plan - Assessment (1) Paranoid schizophrenia Code(s): F20.0 - Paranoid schizophrenia Status: Acute - Plan Plan: Patient remained psychotic delusional thinking auditory hallucinations. Compliant medications. Justification for Continued Inpatient Stay: At this time patient would decompensate a place to a lower level of care Discharge Planning: Continue to await word from [facility]
[2017-12-24] MEDS: Divalproex 500 MG DR Tablet PO SCH (20:11)
[2017-12-24] MEDS: OLANZapine 15 MG Tablet PO SCH (20:11)
[2017-12-25] MEDS: Divalproex 250 MG DR Tablet PO SCH (08:40)
[2017-12-25] MEDS: Senna/Docusate Sodium 8.6/50 MG Tablet PO SCH ×2 (08:43→20:42)
[2017-12-25] MEDS: LORazepam 0.5 MG Tablet PO SCH ×3 (08:43→17:54)
--- NOTE | 2017-12-25 13:06 | P.TTN ---
- Patient Problems Problems: 1. Discharge planning 2. Medication compliance 3. Knowledge deficit 4. Lack of coping skills - Progress Toward Goals Provider Present: Dr. Arthur Vincent (Dr. Vincent is titrating medications, Dr. Vincent may seek state hospitalization, Dr. Vincent intends to take the patient to [place] [facility] this week to advocate for further stabilization. Patient still appears internally stimulated treatment team will advocate for further stabilization and [place] [address] tomorrow with a long-term plan of patient being placed at the [facility] for long-term stabilization.) Provider Input: 12/25/2017; patient continues to require stablizing, is less anxious Psychiatric Counselors Present: Timoteo Schofield Jr., [facility] (Timoteo establish contact with the fact team [facility]. Patient will return to semi- independent living upon discharge where he is followed by the fact team. Counselor is working with fact team nurse case management Josette to advocate in court tomorrow for long-term stabilization at the [facility]. Josette reports she will be attendance to advocate for further stabilization.) Psychiatric Therapist Input: 12/25/2017; counselor will mireille with appropriate dc placement and outpatient appointments Group Spec/RT/OT/MORALES Present: JERAD Burris (Patient attends select groups and has difficulty tolerating most activities.), Timur Oliveros, OT, CARMEN Ga (Patient attends select groups) Group Spec/RT/OT/MORALES Input: Per OT patient does not attend groups - Documentation Teaching Recipient: Patient
--- NOTE | 2017-12-25 15:49 | P.PNPSY ---
Subjective Remarks: Patient seen and wong with floor staff, chart reviewed, patient compliant medication. Patient continues intrusive intense paranoid and vigilant though today states he feels a little bit better. He is not saying he wants to kill himself today or kill anybody else. For now continue treatment. Patient still desires to go to the [facility]. We will continue to await word from the [facility] referral Review of Systems All other systems reviewed negative except as stated in HPI Mental Status Examination Appearance: Appropriate Consciousness: Alert Orientation: x4 Motor Activity: Normal gait Speech: Unremarkable, Pressured, Rapid, Hesitant, Stuttering Language: Adequate Fund of Knowledge: Inadequate Attention and Concentration: Adequate (4) Memory: Unremarkable Mood: Sad, Anxious, Irritable Affect: Other (Slight increased range and intensity) Thought Process & Associations: Intact Thought Content: Hallucinations, Preoccupations Hallucination Type: Auditory Delusion Type: Bizarre Suicidal Ideation: Yes Suicidal Plan: No Suicidal Intention: No Homicidal Ideation: No Homicidal Plan: No Homicidal Intention: No Insight: Poor Judgment: Poor Assessment and Plan - Assessment (1) Paranoid schizophrenia Code(s): F20.0 - Paranoid schizophrenia Status: Acute - Plan Plan: Patient remained psychotic delusional and paranoid, though compliant medications. For now continue treatment Justification for Continued Inpatient Stay: At this time patient would decompensate a place to a lower level of care Discharge Planning: Continue to await word from [facility] referral
[2017-12-25] MEDS: Acetaminophen 325 MG Tablet PO PRN ×2 (15:52→21:41)
[2017-12-25] MEDS: Divalproex 500 MG DR Tablet PO SCH (20:44)
[2017-12-25] MEDS: OLANZapine 15 MG Tablet PO SCH (20:45)
[2017-12-26] MEDS: LORazepam 0.5 MG Tablet PO SCH ×3 (09:13→17:14)
[2017-12-26] MEDS: Divalproex 250 MG DR Tablet PO SCH (09:13)
[2017-12-26] MEDS: Acetaminophen 325 MG Tablet PO PRN ×2 (10:45→20:26)
--- NOTE | 2017-12-26 14:46 | P.PNPSY ---
Subjective Remarks: Patient seen and wong with nurse Fidelia, patient continues somewhat intense and more needy today. Chart reviewed. Patient compliant medication. Today he continues to say he is suicidal and hearing voices today asking me for a shot of Ativan and a shot of Zyprexa. I declined both this becoming quite habitual with him to ask for injections when he feels that any anxiety though he has had appropriate medications in an appropriate interval time. However there is also the potential for explosiveness. I will do this continue the 50 mg Atarax in order patient 25 mg Atarax instead so he may get a "pill" but lowering some of the total daily dosage Review of Systems All other systems reviewed negative except as stated in HPI Mental Status Examination Appearance: Appropriate Consciousness: Alert Orientation: x4 Motor Activity: Normal gait Speech: Unremarkable, Pressured, Rapid, Hesitant, Stuttering Language: Adequate Fund of Knowledge: Inadequate Attention and Concentration: Adequate (4) Memory: Unremarkable Mood: Sad, Anxious, Irritable Affect: Other (Slight increased range and intensity) Thought Process & Associations: Intact Thought Content: Hallucinations, Preoccupations Hallucination Type: Auditory Delusion Type: Bizarre Suicidal Ideation: Yes Suicidal Plan: No Suicidal Intention: No Homicidal Ideation: No Homicidal Plan: No Homicidal Intention: No Insight: Poor Judgment: Poor Assessment and Plan - Assessment (1) Paranoid schizophrenia Code(s): F20.0 - Paranoid schizophrenia Status: Acute - Plan Plan: Patient remains paranoid psychotic and delusional and intrusive and drug- seeking she medication adjustment above Justification for Continued Inpatient Stay: At this time patient would decompensate a place to a lower level of care
[2017-12-26] MEDS: Divalproex 500 MG DR Tablet PO SCH (20:06)
[2017-12-26] MEDS: OLANZapine 15 MG Tablet PO SCH (20:06)
[2017-12-27] MEDS: Divalproex 250 MG DR Tablet PO SCH (09:05)
[2017-12-27] MEDS: LORazepam 0.5 MG Tablet PO SCH ×3 (09:05→17:27)
[2017-12-27] MEDS: Acetaminophen 325 MG Tablet PO PRN ×2 (12:39→20:03)
--- NOTE | 2017-12-27 13:40 | P.PNPSY ---
Subjective Remarks: Patient seen in day room with nurse Maribel, patient approached me quite closely with intense eye contact saying that he felt suicidal. Patient is able to be T escalated and calm with this. He has a difficult time processing automatic thoughts but he does it with assistance. He continues to request shots and medication. He is able to be reviewed directly with that also. For now continue treatment no change Review of Systems All other systems reviewed negative except as stated in HPI Mental Status Examination Appearance: Appropriate Consciousness: Alert Orientation: x4 Motor Activity: Normal gait Speech: Unremarkable, Pressured, Rapid, Hesitant, Stuttering Language: Adequate Fund of Knowledge: Inadequate Attention and Concentration: Adequate (4) Memory: Unremarkable Mood: Sad, Anxious, Irritable Affect: Other (Slight increased range and intensity) Thought Process & Associations: Intact Thought Content: Hallucinations, Preoccupations Hallucination Type: Auditory Delusion Type: Bizarre Suicidal Ideation: Yes Suicidal Plan: No Suicidal Intention: No Homicidal Ideation: No Homicidal Plan: No Homicidal Intention: No Insight: Poor Judgment: Poor Assessment and Plan - Assessment (1) Paranoid schizophrenia Code(s): F20.0 - Paranoid schizophrenia Status: Acute - Plan Plan: Patient remained psychotic delusional and paranoid though compliant medication redirectable there is still some chronic medication seeking Justification for Continued Inpatient Stay: At this time patient would decompensate if placed in a lower level of care Discharge Planning: To be determined we continue to await word from [facility] referral
[2017-12-27] MEDS: OLANZapine 15 MG Tablet PO SCH (20:02)
[2017-12-27] MEDS: Divalproex 500 MG DR Tablet PO SCH (20:02)
[2017-12-28] MEDS: Divalproex 250 MG DR Tablet PO SCH (09:15)
[2017-12-28] MEDS: Acetaminophen 325 MG Tablet PO PRN ×2 (10:25→20:32)
[2017-12-28] MEDS: LORazepam 0.5 MG Tablet PO SCH ×3 (10:25→18:24)
--- NOTE | 2017-12-28 18:55 | P.PNPSY ---
Subjective Remarks: Reviewed electronic medical records and discussed case with staff. Follow-up was conducted in the hallway with the YULI Myles present. Patient continuing to pace the wong. His nurse reports he has been compliant with his medication and had a good day today. Patient states that he is eating well sleeping well. He denies any complaints at this time. Mental Status Examination Appearance: Appropriate Consciousness: Alert Orientation: x4 Motor Activity: Normal gait Speech: Unremarkable, Pressured, Rapid, Hesitant, Stuttering Language: Adequate Fund of Knowledge: Inadequate Attention and Concentration: Adequate (4) Memory: Unremarkable Mood: Sad, Anxious, Irritable Affect: Other (Slight increased range and intensity) Thought Process & Associations: Intact Thought Content: Hallucinations, Preoccupations Hallucination Type: Auditory Delusion Type: Bizarre Suicidal Ideation: Yes Suicidal Plan: No Suicidal Intention: No Homicidal Ideation: No Homicidal Plan: No Homicidal Intention: No Insight: Poor Judgment: Poor Assessment and Plan - Assessment (1) Paranoid schizophrenia Code(s): F20.0 - Paranoid schizophrenia Status: Acute - Plan Plan: Patient will be reevaluated Saturday by the attending psychiatrist. Continue with current treatment plan. Justification for Continued Inpatient Stay: Moving this patient to a less restrictive environment would likely result in decompensation.
[2017-12-28] MEDS: OLANZapine 15 MG Tablet PO SCH (20:30)
[2017-12-28] MEDS: Divalproex 500 MG DR Tablet PO SCH (20:47)
[2017-12-29] MEDS: Divalproex 250 MG DR Tablet PO SCH (10:35)
[2017-12-29] MEDS: LORazepam 0.5 MG Tablet PO SCH ×3 (10:35→18:02)
--- NOTE | 2017-12-29 16:45 | P.PNPSY ---
Subjective Remarks: Reviewed electronic medical records and discussed case with staff. Follow-up was conducted in the hallway. Patient continues to ask for medications throughout the day for his anxiety. He is cooperative, medication compliant and easily re-directed. He is eating and sleeping well. He paces the hallway and engages with other patients. Review of Systems All other systems reviewed negative except as stated in HPI Mental Status Examination Appearance: Appropriate Consciousness: Alert Orientation: x4 Motor Activity: Normal gait Speech: Unremarkable, Pressured, Rapid, Hesitant, Stuttering Language: Adequate Fund of Knowledge: Inadequate Attention and Concentration: Adequate (4) Memory: Unremarkable Mood: Sad, Anxious, Irritable Affect: Other (Slight increased range and intensity) Thought Process & Associations: Intact Thought Content: Hallucinations, Preoccupations Hallucination Type: Auditory Delusion Type: Bizarre Suicidal Ideation: Yes Suicidal Plan: No Suicidal Intention: No Homicidal Ideation: No Homicidal Plan: No Homicidal Intention: No Insight: Poor Judgment: Poor Assessment and Plan - Assessment (1) Schizophrenia Code(s): F20.9 - Schizophrenia, unspecified Status: Acute - Plan Plan: Patient will be reevaluated Saturday by the attending psychiatrist. Continue with current treatment plan. Justification for Continued Inpatient Stay: Moving patient to a less restrictive environment may result in his decompensation.
[2017-12-29] MEDS: OLANZapine 15 MG Tablet PO SCH (20:30)
[2017-12-29] MEDS: Acetaminophen 325 MG Tablet PO PRN (20:34)
[2017-12-29] MEDS: Divalproex 500 MG DR Tablet PO SCH (20:35)
[2017-12-30] MEDS: Divalproex 250 MG DR Tablet PO SCH (11:58)
[2017-12-30] MEDS: LORazepam 0.5 MG Tablet PO SCH ×3 (11:58→20:16)
[2017-12-30] MEDS: Acetaminophen 325 MG Tablet PO PRN ×3 (12:15→20:15)
--- NOTE | 2017-12-30 13:55 | P.PNPSY ---
Subjective Remarks: Patient seen and wong with nurse Steph, medical student Rohit, patient compliant medication. Patient continues with an occasional quizzical look on his face, somewhat confused but overall calm cooperative with me he is able to process with me the intensity of his mental illness and his need to control some of these automatic thoughts and behaviors. He still wishes to go to the [facility]. Review of Systems All other systems reviewed negative except as stated in HPI Mental Status Examination Appearance: Appropriate Consciousness: Alert Orientation: x4 Motor Activity: Normal gait Speech: Unremarkable, Pressured, Rapid, Hesitant, Stuttering Language: Adequate Fund of Knowledge: Inadequate Attention and Concentration: Adequate (4) Memory: Unremarkable Mood: Sad, Anxious, Irritable Affect: Other (Slight increased range and intensity) Thought Process & Associations: Intact Thought Content: Hallucinations, Preoccupations Hallucination Type: Auditory Delusion Type: Bizarre Suicidal Ideation: Yes Suicidal Plan: No Suicidal Intention: No Homicidal Ideation: No Homicidal Plan: No Homicidal Intention: No Insight: Poor Judgment: Poor Assessment and Plan - Assessment (1) Paranoid schizophrenia Code(s): F20.0 - Paranoid schizophrenia Status: Acute - Plan Plan: Patient remains paranoid delusional and psychotic though is able to be redirected. Justification for Continued Inpatient Stay: At this time patient would decompensate a place to a lower level of care Discharge Planning: Continue to await word from [facility] referral
--- NOTE | 2017-12-30 14:01 | P.TTN ---
- Patient Problems Problems: 1. Discharge planning 2. Medication compliance 3. Knowledge deficit 4. Lack of coping skills - Progress Toward Goals Provider Present: Dr. Arthur Vincent (Dr. Vincent is titrating medications, Dr. Vincent may seek [facility] hospitalization, Dr. Vincent intends to take the patient to [facility] court this week to advocate for further stabilization. Patient still appears internally stimulated treatment team will advocate for further stabilization and [facility] court tomorrow with a long-term plan of patient being placed at the [facility] for long-term stabilization. 2017 Dr. Vincent is titrating medications patient needs to remain for further stabilization.) Provider Input: 12/25/2017; patient continues to require stablizing, is less anxious Psychiatric Counselors Present: Timoteo Schofield Jr., [facility] (Timoteo establish contact with the fact team [facility]. Patient will return to semi- independent living upon discharge where he is followed by the fact team. Counselor is working with fact team case hardener Josette to advocate in court tomorrow for long-term stabilization at the [facility]. Josette reports she will be attendance to advocate for further stabilization. State packet scanned and sent to [facility]. Patient is in need of long- term stabilization and may possibly transfer to [facility] to await being placed at the [facility].) Psychiatric Therapist Input: 12/25/2017; counselor will mireille with appropriate dc placement and outpatient appointments Group Spec/RT/OT/MORALES Present: Gena Walters, JERAD (Patient attends select groups and has difficulty tolerating most activities.), Timur Oliveros, OT, CARMEN Ga (Patient attends select groups. 2017 patient attends groups, is mostly appropriate, and easily redirectable.) Group Spec/RT/OT/MORALES Input: Per OT patient does not attend groups - Documentation Teaching Recipient: Patient
[2017-12-30] MEDS: Divalproex 500 MG DR Tablet PO SCH (20:16)
[2017-12-30] MEDS: OLANZapine 15 MG Tablet PO SCH (20:16)
[2017-12-31] MEDS: Divalproex 250 MG DR Tablet PO SCH (11:54)
[2017-12-31] MEDS: LORazepam 0.5 MG Tablet PO SCH ×4 (11:54→17:20)
--- NOTE | 2017-12-31 14:43 | P.PNPSY ---
Subjective Remarks: Patient seen and unit with medical student Rohit, chart reviewed, patient compliant medication. Depakote level drawn on 12/28 was 50 we will increase a.m. dose of Depakote to 1000 mg recheck blood level over in about 4 days. Patient continues at times to ask for his shots of Atarax and Ativan are not perhaps anything. Though he is easily redirectable. He says he talked to his caser in earlier and they may be looking towards perhaps finding an appropriate placement for him otherwise we will continue to await word from count includes the [facility] hospital referral Review of Systems All other systems reviewed negative except as stated in HPI Mental Status Examination Appearance: Appropriate Consciousness: Alert Orientation: x4 Motor Activity: Normal gait Speech: Unremarkable, Pressured, Rapid, Hesitant, Stuttering Language: Adequate Fund of Knowledge: Inadequate Attention and Concentration: Adequate (4) Memory: Unremarkable Mood: Sad, Anxious, Irritable Affect: Other (Slight increased range and intensity) Thought Process & Associations: Intact Thought Content: Hallucinations, Preoccupations Hallucination Type: Auditory Delusion Type: Bizarre Suicidal Ideation: Yes Suicidal Plan: No Suicidal Intention: No Homicidal Ideation: No Homicidal Plan: No Homicidal Intention: No Insight: Poor Judgment: Poor Assessment and Plan - Assessment (1) Paranoid schizophrenia Code(s): F20.0 - Paranoid schizophrenia Status: Acute - Plan Plan: Patient remained psychotic delusional and somewhat paranoid but redirectable. Please see medication adjustment above Justification for Continued Inpatient Stay: At this time patient would decompensate a place to a lower level of care Discharge Planning: To be determined continue to await word from [facility] placement
[2017-12-31] MEDS: Acetaminophen 325 MG Tablet PO PRN ×2 (18:09→22:09)
[2017-12-31] MEDS: Divalproex 500 MG DR Tablet PO SCH (20:38)
[2017-12-31] MEDS: OLANZapine 15 MG Tablet PO SCH (20:40)
[2018-01-01] MEDS: Divalproex 250 MG DR Tablet PO SCH (09:49)
[2018-01-01] MEDS: LORazepam 0.5 MG Tablet PO SCH ×3 (09:49→17:19)
[2018-01-01] MEDS: Acetaminophen 325 MG Tablet PO PRN ×3 (13:31→21:36)
--- NOTE | 2018-01-01 14:48 | P.PNPSY ---
Subjective Remarks: Patient seen in day room, with floor staff, chart reviewed, patient compliant medication. Patient somewhat calmer today. Continues to acknowledge auditory hallucinations and these seem to be less intrusive today he is less med seeking today. For now continue treatment Review of Systems All other systems reviewed negative except as stated in HPI Mental Status Examination Appearance: Appropriate Consciousness: Alert Orientation: x4 Motor Activity: Normal gait Speech: Unremarkable, Pressured, Rapid, Hesitant, Stuttering Language: Adequate Fund of Knowledge: Inadequate Attention and Concentration: Adequate (4) Memory: Unremarkable Mood: Sad, Anxious, Irritable Affect: Other (Slight increased range and intensity) Thought Process & Associations: Intact Thought Content: Hallucinations, Preoccupations Hallucination Type: Auditory Delusion Type: Bizarre Suicidal Ideation: Yes Suicidal Plan: No Suicidal Intention: No Homicidal Ideation: No Homicidal Plan: No Homicidal Intention: No Insight: Poor Judgment: Poor Assessment and Plan - Assessment (1) Paranoid schizophrenia Code(s): F20.0 - Paranoid schizophrenia Status: Acute - Plan Plan: Patient continues psychotic and paranoid though somewhat softer than yesterday. Compliant medication Justification for Continued Inpatient Stay: At this time patient would decompensate a place to a lower level of care, continue to [facility] Discharge Planning: Continue to await word from [facility]
[2018-01-01] MEDS: OLANZapine 15 MG Tablet PO SCH (20:28)
[2018-01-01] MEDS: Divalproex 500 MG DR Tablet PO SCH (20:29)
[2018-01-02] MEDS: Divalproex 250 MG DR Tablet PO SCH (08:54)
[2018-01-02] MEDS: LORazepam 0.5 MG Tablet PO SCH ×3 (08:54→17:06)
[2018-01-02] MEDS: Acetaminophen 325 MG Tablet PO PRN ×2 (14:25→20:29)
--- NOTE | 2018-01-02 14:37 | P.PNPSY ---
Subjective Remarks: Patient seen and wong with nurse Lesley, chart reviewed, patient continues to pace with a somewhat anxious nervous expression on his face. However he denies suicidality today is vague about auditory hallucinations. There is less medication seeking he is not asking for a shot or a pill at this time. For now continue treatment Review of Systems All other systems reviewed negative except as stated in HPI Mental Status Examination Appearance: Appropriate Consciousness: Alert Orientation: x4 Motor Activity: Normal gait Speech: Unremarkable, Pressured, Rapid, Hesitant, Stuttering Language: Adequate Fund of Knowledge: Inadequate Attention and Concentration: Adequate (4) Memory: Unremarkable Mood: Sad, Anxious, Irritable Affect: Other (Slight increased range and intensity) Thought Process & Associations: Intact Thought Content: Hallucinations, Preoccupations Hallucination Type: Auditory Delusion Type: Bizarre Suicidal Ideation: Yes Suicidal Plan: No Suicidal Intention: No Homicidal Ideation: No Homicidal Plan: No Homicidal Intention: No Insight: Poor Judgment: Poor Assessment and Plan - Assessment (1) Paranoid schizophrenia Code(s): F20.0 - Paranoid schizophrenia Status: Acute - Plan Plan: Patient remains quite psychotic and delusional, though somewhat calmer today Justification for Continued Inpatient Stay: At this time patient would decompensate a place to a lower level of care Discharge Planning: Continue to await word from [facility]
[2018-01-02] MEDS: Divalproex 500 MG DR Tablet PO SCH (20:26)
[2018-01-02] MEDS: OLANZapine 15 MG Tablet PO SCH (20:27)
[2018-01-03] MEDS: LORazepam 0.5 MG Tablet PO SCH ×3 (08:03→18:01)
[2018-01-03] MEDS: Divalproex 250 MG DR Tablet PO SCH (08:03)
[2018-01-03] MEDS: Acetaminophen 325 MG Tablet PO PRN ×4 (08:04→23:47)
--- NOTE | 2018-01-03 11:48 | P.PNPSY ---
Subjective Remarks: Patient seen in his room with nurse Maribel, chart reviewed, patient compliant medication. Patient laying down though alert and awake he is somewhat calm and isolating somewhat from me today is less verbal today he is vague about voices today though he denies suicidality today. For now continue treatment. We will be rechecking patient's Depakote blood level tomorrow Review of Systems All other systems reviewed negative except as stated in HPI Mental Status Examination Appearance: Appropriate Consciousness: Alert Orientation: x4 Motor Activity: Normal gait Speech: Unremarkable, Pressured, Rapid, Hesitant, Stuttering Language: Adequate Fund of Knowledge: Inadequate Attention and Concentration: Adequate (4) Memory: Unremarkable Mood: Sad, Anxious, Irritable Affect: Other (Slight increased range and intensity) Thought Process & Associations: Intact Thought Content: Hallucinations, Preoccupations Hallucination Type: Auditory Delusion Type: Bizarre Suicidal Ideation: Yes Suicidal Plan: No Suicidal Intention: No Homicidal Ideation: No Homicidal Plan: No Homicidal Intention: No Insight: Poor Judgment: Poor Assessment and Plan - Assessment (1) Paranoid schizophrenia Code(s): F20.0 - Paranoid schizophrenia Status: Acute - Plan Plan: Patient remained psychotic and delusional though somewhat softer today Justification for Continued Inpatient Stay: At this time patient would decompensate a place to a lower level of care Discharge Planning: To be determined
[2018-01-03] MEDS: Divalproex 500 MG DR Tablet PO SCH (21:59)
[2018-01-03] MEDS: OLANZapine 15 MG Tablet PO SCH (22:00)
[2018-01-03] MEDS: guaiFENesin/Dextromethorphan 200 MG/20 MG 10 ML UDC PO PRN (22:00)
[2018-01-04] MEDS: LORazepam 0.5 MG Tablet PO SCH ×3 (09:04→17:55)
[2018-01-04] MEDS: Acetaminophen 325 MG Tablet PO PRN ×2 (09:05→18:26)
[2018-01-04] MEDS: Divalproex 250 MG DR Tablet PO SCH (09:05)
--- NOTE | 2018-01-04 15:57 | P.PNPSY ---
Subjective Remarks: Pt seen and discussed with staff. Chart reviewed. Pt is on state waiting list. He remains with prominent internal stimulation. Today he has been isolative to his room. He has been intrusive at times with staff. No SI/HI. No aggression. Mental Status Examination Appearance: Appropriate Consciousness: Alert Orientation: x4 Motor Activity: Normal gait Speech: Unremarkable, Pressured, Rapid, Hesitant, Stuttering Language: Adequate Fund of Knowledge: Inadequate Attention and Concentration: Adequate (4) Memory: Unremarkable Mood: Sad, Anxious, Irritable Affect: Other (bizarre stare) Thought Process & Associations: Intact Thought Content: Hallucinations, Preoccupations Hallucination Type: Auditory Delusion Type: Bizarre Suicidal Ideation: No (denies today) Suicidal Plan: No Suicidal Intention: No Homicidal Ideation: No Homicidal Plan: No Homicidal Intention: No Insight: Poor Judgment: Poor Assessment and Plan - Assessment (1) Paranoid schizophrenia Code(s): F20.0 - Paranoid schizophrenia Status: Acute - Plan Plan: continue current tx plan Justification for Continued Inpatient Stay: impairments in reality testing
[2018-01-04] MEDS: Divalproex 500 MG DR Tablet PO SCH (20:19)
[2018-01-04] MEDS: OLANZapine 15 MG Tablet PO SCH (20:19)
[2018-01-05] MEDS: Divalproex 250 MG DR Tablet PO SCH (08:51)
[2018-01-05] MEDS: LORazepam 0.5 MG Tablet PO SCH ×3 (08:51→18:02)
--- NOTE | 2018-01-05 11:17 | P.PNPSY ---
Subjective Remarks: Chart reviewed and discussed with nursing staff. Patient is calm and cooperative. He is pacing the hallway. He is on the state wait list. No concerns regarding sleep or appetite. He is not longer stating that he is suicidal. He does ask for medications for his anxiety. Review of Systems All other systems reviewed negative except as stated in HPI Mental Status Examination Appearance: Appropriate Consciousness: Alert Orientation: x4 Motor Activity: Normal gait Speech: Unremarkable, Pressured, Rapid, Hesitant, Stuttering Language: Adequate Fund of Knowledge: Inadequate Attention and Concentration: Adequate (4) Memory: Unremarkable Mood: Sad, Anxious, Irritable Affect: Other (bizarre stare) Thought Process & Associations: Intact Thought Content: Hallucinations, Preoccupations Hallucination Type: Auditory Delusion Type: Bizarre Suicidal Ideation: No (denies today) Suicidal Plan: No Suicidal Intention: No Homicidal Ideation: No Homicidal Plan: No Homicidal Intention: No Insight: Poor Judgment: Poor Assessment and Plan - Assessment (1) Schizophrenia Code(s): F20.9 - Schizophrenia, unspecified Status: Acute - Plan Plan: continue current tx plan Justification for Continued Inpatient Stay: Moving patient to a less restrictive environment may result in his decompensation.
[2018-01-05] MEDS: Acetaminophen 325 MG Tablet PO PRN ×2 (13:09→20:05)
[2018-01-05] MEDS: Divalproex 500 MG DR Tablet PO SCH (20:04)
[2018-01-05] MEDS: OLANZapine 15 MG Tablet PO SCH (20:05)
[2018-01-06] MEDS: LORazepam 0.5 MG Tablet PO SCH ×3 (08:50→17:17)
[2018-01-06] MEDS: Divalproex 250 MG DR Tablet PO SCH (08:50)
--- NOTE | 2018-01-06 13:36 | P.PNPSY ---
Subjective Remarks: Patient is seen.EMR reviewed. Patient is seen wit nurse Rissa in his room. He is calm at present although nurses report some episodes of pacing around the unit. No verbal or physical outbursts. he is sleeping well and eating well. Medication compliant. he cont to endorse auditory hallucinations but no specific content. Denies current suicidal ideation. Last VPA level is 58. Review of Systems All other systems reviewed negative except as stated in HPI Mental Status Examination Appearance: Appropriate, Disheveled (Dressed in hospital gown) Consciousness: Alert Orientation: x4 Motor Activity: Normal gait Speech: Unremarkable, Pressured, Rapid, Hesitant, Stuttering Language: Adequate Fund of Knowledge: Inadequate Attention and Concentration: Adequate (4), Easily distracted (Appears distracted ) Memory: Unremarkable Mood: Sad, Anxious, Irritable Affect: Blunt, Other (bizarre stare) Thought Process & Associations: Intact, Logical Thought Content: Hallucinations (no specific content), Preoccupations Hallucination Type: Auditory Delusion Type: None Suicidal Ideation: No (denies today) Suicidal Plan: No Suicidal Intention: No Homicidal Ideation: No Homicidal Plan: No Homicidal Intention: No Insight: Poor Judgment: Poor Assessment and Plan - Assessment (1) Paranoid schizophrenia Code(s): F20.0 - Paranoid schizophrenia Status: Acute - Plan Plan: continue current tx plan. [facility]. Justification for Continued Inpatient Stay: Patient is at risk for decompensating if transferred to lower level of care.
[2018-01-06 16:32] LABS: Baso % (Auto) 0.7 % (0.0-2.0); Eos # (Auto) 0.1 th/mm3 (0.0-0.4); Eos % (Auto) 2.5 % (0.0-4.0); Hematocrit 42.1 % (39.0-51.0); Lymph # (Auto) 1.9 th/mm3 (1.0-4.8); Lymph % (Auto) 36.2 % (9.0-44.0); Mean Corpuscular HGB Conc 35.6 % (32.0-36.0); Mean Corpuscular Hemoglobin 31.3 pg (27.0-34.0); Mean Corpuscular Volume 87.8 fL (80.0-100.0); Mean Platelet Volume 6.5 fL (7.0-11.0); Mono # (Auto) 0.6 th/mm3 (0.0-0.9); Mono % (Auto) 11.5 % (0.0-8.0); Neut # (Auto) 2.5 th/mm3 (1.8-7.7); Neut % (Auto) 49.1 % (16.0-70.0); Platelet Count 193 th/mm3 (150-450); Red Blood Count 4.79 mil/mm3 (4.50-5.90); White Blood Count 5.2 th/mm3 (4.0-11.0)
[2018-01-06 16:52] LABS: Albumin 3.5 g/dL (3.4-5.0); Anion Gap 7 meq/L (5-15); Aspartate Aminotransferase 14 U/L (15-37); Blood Urea Nitrogen 12 mg/dL (7-18); Calcium 8.3 mg/dL (8.5-10.1); Chloride 102 meq/L (98-107); Glomerular Filtration Rate Greater Than 89 mL/min (>89); Glucose,Random 91 mg/dL (74-106); Potassium 4.2 meq/L (3.5-5.1); Sodium 136 meq/L (136-145)
[2018-01-06 16:54] LABS: Alanine Aminotransferase 25 U/L (12-78)
[2018-01-06 16:56] LABS: Alkaline Phosphatase 60 U/L (45-117)
[2018-01-06] MEDS: OLANZapine 15 MG Tablet PO SCH (20:26)
[2018-01-06] MEDS: Divalproex 500 MG DR Tablet PO SCH (20:27)
[2018-01-06] MEDS: Acetaminophen 325 MG Tablet PO PRN (21:34)
[2018-01-07] MEDS: LORazepam 0.5 MG Tablet PO SCH ×3 (08:26→17:01)
[2018-01-07] MEDS: Divalproex 250 MG DR Tablet PO SCH (08:26)
--- NOTE | 2018-01-07 10:41 | P.TTN ---
- Patient Problems Problems: 1. Discharge planning 2. Medication compliance 3. Knowledge deficit 4. Lack of coping skills - Progress Toward Goals Provider Present: Dr. Arthur Vincent (Dr. Vincent is titrating medications, Dr. Vincent may seek state hospitalization, Dr. Vincent intends to take the patient to [facility] court this week to advocate for further stabilization. Patient still appears internally stimulated treatment team will advocate for further stabilization and [facility] court tomorrow with a long-term plan of patient being placed at the [facility] for long-term stabilization. 2017 Dr. Vincent is titrating medications patient needs to remain for further stabilization.), Dr. Alejandrina Ruano (Patient is new to Dr. Ruano, patient will transfer to [facility] to await [facility] hospitalization as soon as possible.) Provider Input: 12/25/2017; patient continues to require stablizing, is less anxious Psychiatric Counselors Present: Timoteo Schofield Jr., [facility] (Timoteo establish contact with the fact team [facility]. Patient will return to semi- independent living upon discharge where he is followed by the fact team. Counselor is working with fact team pillowcase cleaner Josette to advocate in court tomorrow for long-term stabilization at the [facility]. Josette reports she will be attendance to advocate for further stabilization. [facility] packet scanned and sent to [facility]. Patient is in need of long- term stabilization and may possibly transfer to [facility] to await being placed at the [facility]. January 07 [address] will assist with anything that is needed to transfer patient to [facility] to await [facility] hospitalization.) Psychiatric Therapist Input: 12/25/2017; counselor will mireille with appropriate dc placement and outpatient appointments Group Spec/RT/OT/MORALES Present: Gena Walters, JERAD (Patient attends select groups and has difficulty tolerating most activities.), Timur Oliveros, OT, CARMEN Ga (Patient attends select groups. 2017 patient attends groups, is mostly appropriate, and easily redirectable. Patient has difficulty tolerating groups, often stays in group for about 10 minutes and must return to the unit due to difficulty coping.) Group Spec/RT/OT/MORALES Input: Per OT patient does not attend groups - Documentation Teaching Recipient: Patient
--- NOTE | 2018-01-07 12:46 | P.PNPSY ---
Subjective Remarks: Patient seen and examined with nurse in coverage for Dr. Vincent. Chart reviewed. Case discussed with nursing staff. No behavioral issues noted. Case discussed in treatment team. On my examination today, the patient is fairly hypoverbal and flat. He denies any audiovisual hallucinations. He endorses vague suicidal ideation but denies any plan or suicidal intent. He denies any urge to hurt himself on the inpatient unit. Denies any side effects from medications. No physical complaints. Review of Systems All other systems reviewed negative except as stated in HPI Mental Status Examination Appearance: Appropriate Consciousness: Alert Orientation: Person, Place (At least) Motor Activity: Normal gait, Other (No motor abnormalities noted) Speech: Unremarkable, Hesitant Language: Adequate Fund of Knowledge: Inadequate Attention and Concentration: Other (Fair) Memory: Unremarkable Mood: Other (Calm) Affect: Flat Thought Process & Associations: Intact Thought Content: Hallucinations Hallucination Type: Auditory (Vague) Delusion Type: None Suicidal Ideation: Yes Suicidal Plan: No Suicidal Intention: No (No reported urge to hurt self on inpatient unit) Homicidal Ideation: No Insight: Poor Judgment: Poor Assessment and Plan - Assessment (1) Paranoid schizophrenia Code(s): F20.0 - Paranoid schizophrenia Status: Acute - Plan Plan: Continue current psychotropic medications as ordered. Continue to monitor on the inpatient unit. Continue other medications and care as ordered. Justification for Continued Inpatient Stay: Risk for decompensation in less restrictive environment. Discharge Planning: [facility] referral.
[2018-01-07] MEDS: Acetaminophen 325 MG Tablet PO PRN ×2 (14:06→22:44)
[2018-01-07] MEDS: OLANZapine 15 MG Tablet PO SCH (20:58)
[2018-01-07] MEDS: Divalproex 500 MG DR Tablet PO SCH (20:58)
[2018-01-08] MEDS: Divalproex 250 MG DR Tablet PO SCH (08:34)
[2018-01-08] MEDS: Acetaminophen 325 MG Tablet PO PRN ×3 (08:34→20:57)
[2018-01-08] MEDS: LORazepam 0.5 MG Tablet PO SCH ×3 (08:35→18:08)
--- NOTE | 2018-01-08 11:53 | P.PNPSY ---
Subjective Remarks: Patient seen and examined with nurse in coverage for Dr. Vincent. Chart reviewed. Case discussed with nursing staff. No behavioral issues noted. On my examination today, the patient is more or less unchanged. He is seclusive to room and fairly hypoverbal and flat. He complains of feeling anxious and says that this is due to "just stress." He does not appear particularly anxious. No SI or HI voiced today. He says that the plan is to send him to the [facility] and he is okay with this. No side effects from medications. Denies any chest pain, shortness of breath, bowel or bladder issues or other physical complaints. Vital Signs Temp Pulse Resp BP Pulse Ox 01/08/18 06:00 97.9 F 71 18 118/71 98 01/07/18 16:21 98.0 F 92 H 19 144/66 H Labs reviewed. No new labs. Review of Systems All other systems reviewed negative except as stated in HPI Mental Status Examination Appearance: Appropriate Consciousness: Alert Orientation: Person, Place (At least) Motor Activity: Other (No abnormal motor movements noted) Speech: Unremarkable, Hesitant Language: Adequate Fund of Knowledge: Inadequate Attention and Concentration: Other (Fair) Memory: Unremarkable Mood: Other (Remains calm) Affect: Flat Thought Process & Associations: Intact Thought Content: Bizarre thinking Hallucination Type: None Delusion Type: None Suicidal Ideation: No Homicidal Ideation: No Insight: Poor Judgment: Poor Assessment and Plan - Assessment (1) Paranoid schizophrenia Code(s): F20.0 - Paranoid schizophrenia Status: Acute - Plan Plan: Continue current psychiatric medications as ordered. Continue to monitor on the inpatient unit. Continue other medications and care as ordered. Justification for Continued Inpatient Stay: Risk for decompensation in less restrictive environment. Discharge Planning: [facility] referral.
[2018-01-08] MEDS: Divalproex 500 MG DR Tablet PO SCH (20:55)
[2018-01-08] MEDS: OLANZapine 15 MG Tablet PO SCH (20:55)
[2018-01-09] MEDS: Divalproex 250 MG DR Tablet PO SCH (10:20)
[2018-01-09] MEDS: LORazepam 0.5 MG Tablet PO SCH ×3 (10:20→17:42)
--- NOTE | 2018-01-09 10:47 | P.PNPSY ---
Subjective Remarks: Patient seen and examined with nurse. Chart reviewed. Case discussed with nursing staff. No significant change per nursing staff. On my examination today, the patient is seclusive to room. He is hypoverbal and his affect is somewhat flat. He denies SI, HI or AVH. Remains agreeable to [facility] referral. No side effects from medications. No physical complaints. Vital Signs Temp Pulse Resp BP Pulse Ox 01/09/18 05:15 97.6 F 70 17 120/57 L 95 Intake and Output 01/09/18 01/09/18 01/09/18 06:59 14:59 22:59 Other: Weight 111.9 kg Labs reviewed. No new labs. Review of Systems All other systems reviewed negative except as stated in HPI (Limitation: Poor historian) Mental Status Examination Appearance: Appropriate Consciousness: Alert Orientation: Person, Place (At least) Motor Activity: Other (No motoric abnormalities noted) Speech: Unremarkable, Hesitant Language: Adequate Fund of Knowledge: Inadequate Attention and Concentration: Other (Fair) Memory: Unremarkable Mood: Other (Calm) Affect: Flat Thought Process & Associations: Intact, Other (Slowed) Thought Content: Other (Poverty of thought) Hallucination Type: None Delusion Type: None Suicidal Ideation: No Homicidal Ideation: No Insight: Poor Judgment: Poor Assessment and Plan - Assessment (1) Paranoid schizophrenia Code(s): F20.0 - Paranoid schizophrenia Status: Acute - Plan Plan: Continue current psychotropic medications as ordered. Continue to monitor on the inpatient unit. Continue other care as ordered. Justification for Continued Inpatient Stay: High risk for decompensation in less restrictive environment. Discharge Planning: [facility] referral.
[2018-01-09] MEDS: Acetaminophen 325 MG Tablet PO PRN (13:11)
[2018-01-09] MEDS: OLANZapine 15 MG Tablet PO SCH (20:07)
[2018-01-09] MEDS: Divalproex 500 MG DR Tablet PO SCH (20:07)
--- NOTE | 2018-01-10 08:52 | P.TTN ---
- Patient Problems Problems: 1. Discharge planning 2. Medication compliance 3. Knowledge deficit 4. Lack of coping skills - Progress Toward Goals Provider Present: Dr. Arthur Vincent (Dr. Vincent is titrating medications, Dr. Vincent may seek state hospitalization, Dr. Vincent intends to take the patient to [facility] court this week to advocate for further stabilization. Patient still appears internally stimulated treatment team will advocate for further stabilization and [facility] court tomorrow with a long-term plan of patient being placed at the [facility] for long-term stabilization. 2017 Dr. Vincent is titrating medications patient needs to remain for further stabilization.), Dr. Alejandrina Ruano (Patient is new to Dr. Ruano, patient will transfer to [facility] to await [facility] hospitalization as soon as possible. January 10, 2018 no change in medications, patient is in need of transfer to [facility] to await [facility] hospitalization.) Provider Input: 12/25/2017; patient continues to require stablizing, is less anxious Psychiatric Counselors Present: Timoteo Schofield Jr., [facility] (Timoteo establish contact with the fact team [facility]. Patient will return to semi- independent living upon discharge where he is followed by the fact team. Counselor is working with fact team case hardener Josette to advocate in court tomorrow for long-term stabilization at the [facility]. Josette reports she will be attendance to advocate for further stabilization. [facility] packet scanned and sent to [facility]. Patient is in need of long- term stabilization and may possibly transfer to [facility] to await being placed at the [facility]. January 07 [address] will assist with anything that is needed to transfer patient to [facility] to await [facility] hospitalization. January 10, 2018 counselor will establish contact with [facility] to inquire about transfer to [facility] to await state hospitalization.) Psychiatric Therapist Input: 12/25/2017; counselor will mireille with appropriate dc placement and outpatient appointments Group Spec/RT/OT/MORALES Present: JERAD Burris (Patient attends select groups and has difficulty tolerating most activities. January 10, 2018 patient attends select groups and has difficulty tolerating most activities.), Timur Oliveros OT, CARMEN Ga (Patient attends select groups. Tober 2017 patient attends groups, is mostly appropriate, and easily redirectable. Patient has difficulty tolerating groups, often stays in group for about 10 minutes and must return to the unit due to difficulty coping.) Group Spec/RT/OT/MORALES Input: Per OT patient does not attend groups - Documentation Teaching Recipient: Patient
--- NOTE | 2018-01-10 09:57 | P.PNPSY ---
Subjective Remarks: Patient seen and examined with counselor. Chart reviewed. Case discussed with nursing staff. Case discussed in treatment team. On my examination today, the patient is sitting in the day area, having a late breakfast. He requests to conduct the interview in the day area but asks that it be kept brief because "I do not feel like talking." He denies any SI or HI. No reported AVH. No side effects from medications. No acute physical complaints. Vital Signs Temp Pulse Resp BP Pulse Ox 01/10/18 06:25 98.1 F 71 18 123/56 L 97 01/09/18 17:16 97.9 F 84 17 127/66 96 No new labs Review of Systems All other systems reviewed negative except as stated in HPI (Limitation: Poor historian) Mental Status Examination Appearance: Appropriate Consciousness: Alert Orientation: Person, Place (At least) Motor Activity: Other (No motor abnormalities appreciated.) Speech: Unremarkable, Hesitant Language: Adequate Fund of Knowledge: Inadequate Attention and Concentration: Other (Fair) Memory: Unremarkable Mood: Irritable (Mild), Other (Calm) Affect: Flat (Remains quite flat) Thought Process & Associations: Intact, Other (Slowed) Thought Content: Other (Poverty of thought) Hallucination Type: None Delusion Type: None Suicidal Ideation: No Suicidal Plan: No Suicidal Intention: No Homicidal Ideation: No Homicidal Plan: No Homicidal Intention: No Insight: Poor Judgment: Poor Assessment and Plan - Assessment (1) Paranoid schizophrenia Code(s): F20.0 - Paranoid schizophrenia Status: Acute - Plan Plan: Continue current psychiatric medications as ordered. Continue to monitor on the inpatient psychiatric unit. Continue other care as ordered. Justification for Continued Inpatient Stay: High risk for decompensation in less restrictive environment. Discharge Planning: Counselor informs me that patient is #[phone] on the [facility] wait list.
[2018-01-10] MEDS: Divalproex 250 MG DR Tablet PO SCH ×2 (10:53→12:43)
[2018-01-10] MEDS: LORazepam 0.5 MG Tablet PO SCH ×3 (10:53→17:25)
[2018-01-10] MEDS: Acetaminophen 325 MG Tablet PO PRN ×2 (16:44→21:50)
[2018-01-10] MEDS: OLANZapine 15 MG Tablet PO SCH (20:01)
[2018-01-10] MEDS: Divalproex 500 MG DR Tablet PO SCH (20:01)
--- NOTE | 2018-01-11 09:44 | P.PNPSY ---
Subjective Remarks: Patient seen and examined with nurse. Chart reviewed. Case discussed with nursing staff who reports patient is uncharacteristically medication resistant and more sullen today. He told the nurse that he does not feel well. On my exam, I find the patient secluding in his room. When I try to engage with patient he initially keeps repeating "I'm sleeping. I'm sleeping." He does finally engage with me, and denies extended ROS as detailed below. The most that he will say is that he feels "tired." No reported side effects from medications. He has no hand tremor, no cogwheeling, no hypomimia, no dystonia or dyskinesia on exam. Vital Signs Temp Pulse Resp BP Pulse Ox 01/11/18 06:06 98.6 F 68 16 102/55 L 100 01/10/18 22:57 Checked with nurse. This is suspected to be in error. She did not receive any report that patient was hypopneic overnight. 01/10/18 18:06 98.7 F 95 H 18 145/70 H 100 Labs reviewed. No new labs. Review of Systems Constitutional: Reports fatigue Eyes: Denies blurry vision, Denies double vision Ears, Nose, Mouth, and Throat: Denies abnormal hearing, Denies headache(s), Denies hearing loss, Denies nasal congestion Cardiovascular: Denies chest pain, Denies shortness of breath Gastrointestinal: Denies abdominal pain, Denies bright, red blood in stools, Denies change in bowel habits, Denies constipation, Denies loose stools, Denies nausea, Denies vomiting Genitourinary: Denies blood in urine, Denies decreased urination, Denies difficulty urinating, Denies painful urination, Denies urinary hesitancy Musculoskeletal: Denies body aches, Denies joint pain, Denies stiffness Neurologic: Denies abnormal hearing, Denies abnormal movements, Denies sensory deficit, Denies tingling/numbness/burning sensations, Denies weakness Hematologic/Lymphatic: Denies easy bleeding, Denies easy bruising Mental Status Examination Appearance: Appropriate Consciousness: Alert Orientation: Person, Place (At least) Motor Activity: Other (No abnormal motor movements noted) Speech: Unremarkable, Hesitant Language: Adequate Fund of Knowledge: Inadequate Attention and Concentration: Other (Fair) Memory: Unremarkable Mood: Other (Calm) Affect: Flat Thought Process & Associations: Intact, Other (Slowed) Thought Content: Other (Ongoing poverty of thought) Hallucination Type: None Delusion Type: None Suicidal Ideation: No Homicidal Ideation: No Insight: Poor Judgment: Poor Assessment and Plan - Assessment (1) Paranoid schizophrenia Code(s): F20.0 - Paranoid schizophrenia Status: Acute - Plan Plan: Check an updated CBC and CMP as well as VPA and ammonia level given patient's complaints of not feeling well. If there are clinically significant abnormalities, will re-consult hospitalist. Otherwise, will continue to monitor. I have asked the nurse to clarify with night staff whether patient is experiencing hypopnea at night as this could contribute to fatigue and not feeling well and would not be wholly unexpected given his degree of sedating medications. Continue other medications and care as ordered. Justification for Continued Inpatient Stay: High risk for decompensation in less restrictive environment. Discharge Planning: [facility] psychiatric hospital referral.
[2018-01-11] MEDS: Divalproex 250 MG DR Tablet PO SCH (10:45)
[2018-01-11] MEDS: LORazepam 0.5 MG Tablet PO SCH ×3 (10:45→17:05)
[2018-01-11 10:47] LABS: Baso % (Auto) 0.8 % (0.0-2.0); Eos # (Auto) 0.2 th/mm3 (0.0-0.4); Eos % (Auto) 4.6 % (0.0-4.0); Hematocrit 44.9 % (39.0-51.0); Hemoglobin 15.6 gm/dL (13.0-17.0); Lymph # (Auto) 1.5 th/mm3 (1.0-4.8); Mean Corpuscular HGB Conc 34.9 % (32.0-36.0); Mean Corpuscular Hemoglobin 31.1 pg (27.0-34.0); Mean Corpuscular Volume 89.1 fL (80.0-100.0); Mean Platelet Volume 6.4 fL (7.0-11.0); Mono # (Auto) 0.4 th/mm3 (0.0-0.9); Mono % (Auto) 9.8 % (0.0-8.0); Neut # (Auto) 2.1 th/mm3 (1.8-7.7); Neut % (Auto) 48.8 % (16.0-70.0); Platelet Count 185 th/mm3 (150-450); Red Blood Count 5.04 mil/mm3 (4.50-5.90); Red Cell Distribution Width 13.2 % (11.6-17.2); White Blood Count 4.3 th/mm3 (4.0-11.0)
[2018-01-11 11:17] LABS: Albumin 3.5 g/dL (3.4-5.0); Anion Gap 5 meq/L (5-15); Aspartate Aminotransferase 12 U/L (15-37); Blood Urea Nitrogen 12 mg/dL (7-18); Calcium 8.1 mg/dL (8.5-10.1); Carbon Dioxide 27.8 meq/L (21.0-32.0); Chloride 108 meq/L (98-107); Glomerular Filtration Rate Greater Than 89 mL/min (>89); Glucose,Random 86 mg/dL (74-106); Potassium 4.4 meq/L (3.5-5.1); Sodium 141 meq/L (136-145)
[2018-01-11 11:18] LABS: Alanine Aminotransferase 22 U/L (12-78)
[2018-01-11 11:20] LABS: Alkaline Phosphatase 58 U/L (45-117); Total Protein 6.9 g/dL (6.4-8.2); Valproic Acid 37 mcg/mL (50-100)
[2018-01-11] MEDS: OLANZapine 15 MG Tablet PO SCH (20:36)
[2018-01-11] MEDS: Divalproex 500 MG DR Tablet PO SCH (20:36)
[2018-01-12] MEDS: Divalproex 250 MG DR Tablet PO SCH (08:35)
[2018-01-12] MEDS: LORazepam 0.5 MG Tablet PO SCH ×3 (08:35→17:20)
--- NOTE | 2018-01-12 11:27 | P.PNPSY ---
Subjective Remarks: Chart reviewed and discussed with nursing staff. YULI Kwok and I found patient in bed. Nurse states that he is seclusive to his room in the morning and sleeps late followed by walking the wong the rest of the day. This morning he attempted to get his nurse to delay his medications as he wanted to sleep. YULI Kwok was able to get him to take his medications. Per nursing staff , there have been on changes in behavior. He continues to say , " I am suicidal" with no plan and redirects easily. Labs 01/11/18 : Valporic acid is 37 and Ammonia is 46. Currently on Lactulose. Review of Systems All other systems reviewed negative except as stated in HPI Mental Status Examination Appearance: Appropriate Consciousness: Alert Orientation: Person, Place (At least) Motor Activity: Other (No abnormal motor movements noted) Speech: Unremarkable, Hesitant Language: Adequate Fund of Knowledge: Inadequate Attention and Concentration: Other (Fair) Memory: Unremarkable Mood: Other (Calm) Affect: Flat Thought Process & Associations: Intact, Other (Slowed) Thought Content: Other (Ongoing poverty of thought) Hallucination Type: None Delusion Type: None Suicidal Ideation: No Suicidal Plan: No Suicidal Intention: No Homicidal Ideation: No Homicidal Plan: No Homicidal Intention: No Insight: Poor Judgment: Poor Assessment and Plan - Assessment (1) Schizophrenia Code(s): F20.9 - Schizophrenia, unspecified Status: Acute - Plan Plan: Continue current treatment plan. Justification for Continued Inpatient Stay: Continue current treatment plan. Moving patient to a less restrictive environment may result in his decompensation.
[2018-01-12] MEDS: Acetaminophen 325 MG Tablet PO PRN (14:25)
[2018-01-12] MEDS: Divalproex 500 MG DR Tablet PO SCH (21:00)
[2018-01-12] MEDS: OLANZapine 15 MG Tablet PO SCH (21:00)
[2018-01-13] MEDS: Divalproex 250 MG DR Tablet PO SCH (08:30)
[2018-01-13] MEDS: LORazepam 0.5 MG Tablet PO SCH ×3 (08:30→17:28)
--- NOTE | 2018-01-13 12:36 | P.PNPSY ---
Subjective Remarks: Patient seen and examined with nurse. Chart reviewed. Case discussed with nursing staff. On my examination today, the patient is more interactive than in my recent visits with him. He complains of some anxiety. He denies any SI or HI. Denies any AVH. No side effects from medications. I have explained to him the purpose of the lactulose. No physical complaints. Vital Signs Temp Pulse Resp BP Pulse Ox 01/13/18 15:00 98.3 F 78 18 127/73 100 01/13/18 14:16 18 01/13/18 06:00 97.8 F 63 18 98/55 L 100 Intake and Output 01/13/18 01/13/18 01/13/18 06:59 14:59 22:59 Other: Weight 113.1 kg Labs reviewed. No new labs. It does not appear that the Depakote and ammonia level that I ordered this morning were drawn. I will reorder these for tomorrow morning. Review of Systems All other systems reviewed negative except as stated in HPI (Limitation: Poor historian) Mental Status Examination Appearance: Appropriate Consciousness: Alert Orientation: Person, Place (At least) Motor Activity: Other (No motoric abnormalities noted.) Speech: Unremarkable, Hesitant Language: Adequate Fund of Knowledge: Inadequate Attention and Concentration: Other (Fair) Memory: Unremarkable Mood: Anxious Affect: Blunt Thought Process & Associations: Intact, Other (Slowed) Thought Content: Other (Poverty of thought) Hallucination Type: None Delusion Type: None Suicidal Ideation: No Suicidal Plan: No Suicidal Intention: No Homicidal Ideation: No Homicidal Plan: No Homicidal Intention: No Insight: Poor Judgment: Poor Assessment and Plan - Assessment (1) Paranoid schizophrenia Code(s): F20.0 - Paranoid schizophrenia Status: Acute - Plan Plan: Continue current psychiatric medications as ordered. I have reordered Depakote and ammonia level for tomorrow morning. Continue to monitor on the inpatient unit. Continue other medications and care as ordered. Justification for Continued Inpatient Stay: Risk for decompensation in less restrictive environment. [facility]
[2018-01-13] MEDS: Acetaminophen 325 MG Tablet PO PRN (12:57)
[2018-01-13] MEDS: Divalproex 500 MG DR Tablet PO SCH (20:18)
[2018-01-13] MEDS: OLANZapine 15 MG Tablet PO SCH (20:18)
[2018-01-14] MEDS: Divalproex 250 MG DR Tablet PO SCH (10:13)
[2018-01-14] MEDS: LORazepam 0.5 MG Tablet PO SCH ×3 (10:13→17:11)
--- NOTE | 2018-01-14 11:19 | P.PNPSY ---
Subjective Remarks: Patient seen and examined with counselor and nurse. Chart reviewed. Case discussed with nursing staff. Case discussed in treatment team. On my examination today, the patient is seclusive to room. He remains fairly hypoverbal and flat. No psychotic material verbalized. No side effects from medications. No physical complaints. Vital Signs Temp Pulse Resp BP Pulse Ox 01/14/18 05:47 97.5 F L 76 16 118/59 L 96 01/13/18 15:00 98.3 F 78 18 127/73 100 01/13/18 14:16 18 Intake and Output 01/13/18 01/14/18 01/14/18 22:59 06:59 14:59 Other: Date of Last Bowel Movement 01/11/18 Laboratory Results - last 24 hr 01/13/18 01/13/18 01/14/18 20:26 20:26 10:17 Ammonia 59 H 38 H Valproic Acid 45 L 01/14/18 10:17 Ammonia Valproic Acid 54 Labs reviewed. Depakote level within the therapeutic range. Ammonia level decreasing. No signs of hyperammonemic encephalopathy. Review of Systems All other systems reviewed negative except as stated in HPI (Limitation: Poor historian) Mental Status Examination Appearance: Appropriate Consciousness: Alert Orientation: Person, Place (At least) Motor Activity: Other (No abnormal motor movements noted) Speech: Other (Somewhat hypoverbal) Language: Adequate Fund of Knowledge: Inadequate Attention and Concentration: Other (Fair) Memory: Unremarkable Mood: Appropriate Affect: Flat Thought Process & Associations: Intact, Other (Slowed) Thought Content: Other (Poverty of thought) Hallucination Type: None Delusion Type: None Suicidal Ideation: No Homicidal Ideation: No Insight: Poor Judgment: Poor Assessment and Plan - Assessment (1) Paranoid schizophrenia Code(s): F20.0 - Paranoid schizophrenia Status: Acute - Plan Plan: Continue current psychotropic medications as ordered. Continue to monitor on the inpatient unit. Continue other medications and care as ordered. Justification for Continued Inpatient Stay: Risk for decompensation in less restrictive environment. Discharge Planning: [facility] psychiatric hospital referral.
[2018-01-14] MEDS: Acetaminophen 325 MG Tablet PO PRN ×2 (12:23→18:21)
--- NOTE | 2018-01-14 15:41 | P.TTN ---
- Patient Problems Problems: 1. Discharge planning 2. Medication compliance 3. Knowledge deficit 4. Lack of coping skills - Progress Toward Goals Provider Present: Dr. Arthur Vincent (Dr. Vincent is titrating medications, Dr. Vincent may seek state hospitalization, Dr. Vincent intends to take the patient to [facility] court this week to advocate for further stabilization. Patient still appears internally stimulated treatment team will advocate for further stabilization and [facility] court tomorrow with a long-term plan of patient being placed at the [facility] for long-term stabilization. 2017 Dr. Vincent is titrating medications patient needs to remain for further stabilization.), Dr. Alejandrina Ruano (Patient is new to Dr. Ruano, patient will transfer to [facility] to await replaced by [facility] hospitalization as soon as possible. January 10, 2018 no change in medications, patient is in need of transfer to [facility] to await replaced by [facility] hospitalization. January 14, 2018 no change in medications, Dr. Ruano is advocating for transfer to [facility] to await replaced by [facility] hospitalization.) Provider Input: 12/25/2017; patient continues to require stablizing, is less anxious Psychiatric Counselors Present: Timoteo Schofield Jr., [facility] (Timoteo establish contact with the fact team [facility]. Patient will return to semi- independent living upon discharge where he is followed by the fact team. Counselor is working with fact team caser in [place] to advocate in court tomorrow for long-term stabilization at the [facility]. Josette reports she will be attendance to advocate for further stabilization. [facility] packet scanned and sent to [facility]. Patient is in need of long- term stabilization and may possibly transfer to [facility] to await being placed at the [facility]. January 07 2018 Counselor Dl. will assist with anything that is needed to transfer patient to [facility] to await replaced by [facility] hospitalization. January 10, 2018 counselor will establish contact with [facility] to inquire about transfer to [facility] to await state hospitalization. January 14, 2018 patient is inquiring about his disability check and his clothing. Counselor reached out to fact team japanese tutor Kaylin who is securing both the patient's funds and this patient's clothing in wait of state hospitalization.) Psychiatric Therapist Input: 12/25/2017; counselor will mireille with appropriate dc placement and outpatient appointments Group Spec/RT/OT/MORALES Present: Gena Walters, [employer] (Patient attends select groups and has difficulty tolerating most activities. January 10, 2018 patient attends select groups and has difficulty tolerating most activities.), Timur Oliveros, OT, CARMEN Ga (Patient attends select groups. 2017 patient attends groups, is mostly appropriate, and easily redirectable. Patient has difficulty tolerating groups, often stays in group for about 10 minutes and must return to the unit due to difficulty coping. January 14, 2018 patient attends select groups and has difficulty tolerating groups at this time. ) Group Spec/RT/OT/MORALES Input: Per OT patient does not attend groups - Documentation Teaching Recipient: Patient
[2018-01-14] MEDS: Divalproex 500 MG DR Tablet PO SCH (19:59)
[2018-01-14] MEDS: OLANZapine 15 MG Tablet PO SCH (19:59)
[2018-01-15] MEDS: Divalproex 250 MG DR Tablet PO SCH (09:02)
[2018-01-15] MEDS: LORazepam 0.5 MG Tablet PO SCH ×3 (09:02→18:23)
--- NOTE | 2018-01-15 11:07 | P.PNPSY ---
Subjective Remarks: Patient seen and examined with nurse and counselor. Chart reviewed. Case discussed with nursing staff who reports patient has frequently been asking for water and has been utilizing a fair amount of Tylenol. Reviewing the MAR, it appears that he has been taking at least 1 dose per day of Tylenol most days. When I ask the patient about this, he reports that he has a headache. I try to gather more history regarding this issue, but the patient is resistant to discuss the matter further. He does not appear to be in any acute physical distress. He is not interested in extended interview and gets up abruptly and walks out. Vital Signs Temp Pulse Resp BP Pulse Ox 01/15/18 05:45 97.4 F L 66 18 120/59 L 97 01/14/18 18:20 98.7 F 98 H 18 133/67 97 Intake and Output 01/14/18 01/15/18 01/15/18 22:59 06:59 14:59 Other: Date of Last Bowel Movement 01/11/18 Labs reviewed. No new labs. Sodium and LFTs were within normal limits when checked a few days ago. Review of Systems All other systems reviewed negative except as stated in HPI (Limitation: Poor historian) Mental Status Examination Appearance: Appropriate Consciousness: Alert Orientation: Person, Place (At least) Motor Activity: Other (No abnormal motor movements noted) Speech: Other (Somewhat hypoverbal) Language: Adequate Fund of Knowledge: Inadequate Attention and Concentration: Other (Fair) Memory: Unremarkable Mood: Oppositional (Mild) Affect: Flat Thought Process & Associations: Intact, Other (Remains somewhat slowed) Thought Content: Other (Poverty of thought) Hallucination Type: None Delusion Type: None Suicidal Ideation: No Homicidal Ideation: No Insight: Poor Judgment: Poor Assessment and Plan - Assessment (1) Paranoid schizophrenia Code(s): F20.0 - Paranoid schizophrenia Status: Acute - Plan Plan: Monitor complaint of headache. This complaint appears to be chronic with no red -flag symptoms reported, although the patient is a poor historian. Continue current psychotropics as ordered. Continue other meds and care as ordered. Justification for Continued Inpatient Stay: Risk for decompensation in less restrictive environment. Discharge Planning: [facility] psychiatric hospital referral.
[2018-01-15] MEDS: Acetaminophen 325 MG Tablet PO PRN (16:47)
[2018-01-15] MEDS: Divalproex 500 MG DR Tablet PO SCH (20:02)
[2018-01-15] MEDS: OLANZapine 15 MG Tablet PO SCH (20:02)
[2018-01-16] MEDS: Divalproex 250 MG DR Tablet PO SCH (10:26)
[2018-01-16] MEDS: LORazepam 0.5 MG Tablet PO SCH ×3 (10:26→17:37)
[2018-01-16] MEDS: Acetaminophen 325 MG Tablet PO PRN ×2 (12:58→20:56)
--- NOTE | 2018-01-16 16:40 | P.PNPSY ---
Subjective Remarks: Reviewed electronic medical record and discussed case with staff. Staff advised that patient had a really good day yesterday but has been grumpier today. Follow up conducted in the hallway. Patient was found pacing up and down in an irritable mood. He states that he is in a "bad mood" when asked why he says "I don't know". Mental Status Examination Appearance: Appropriate Consciousness: Alert Orientation: Person, Place (At least) Motor Activity: Other (No abnormal motor movements noted) Speech: Other (Somewhat hypoverbal) Language: Adequate Fund of Knowledge: Inadequate Attention and Concentration: Other (Fair) Memory: Unremarkable Mood: Oppositional (Mild) Affect: Flat Thought Process & Associations: Intact, Other (Remains somewhat slowed) Thought Content: Other (Poverty of thought) Hallucination Type: None Delusion Type: None Suicidal Ideation: No Suicidal Plan: No Suicidal Intention: No Homicidal Ideation: No Homicidal Plan: No Homicidal Intention: No Insight: Poor Judgment: Poor Assessment and Plan - Assessment (1) Paranoid schizophrenia Code(s): F20.0 - Paranoid schizophrenia Status: Acute - Plan Plan: Patient will be reevaluated by an attending psychiatrist. He is awaiting placement. Justification for Continued Inpatient Stay: Moving this patient to a lower level of care would result in a decompensation.
[2018-01-16] MEDS: OLANZapine 15 MG Tablet PO SCH (20:02)
[2018-01-16] MEDS: Divalproex 500 MG DR Tablet PO SCH (20:02)
[2018-01-17] MEDS: LORazepam 0.5 MG Tablet PO SCH ×3 (08:11→17:16)
[2018-01-17] MEDS: Divalproex 250 MG DR Tablet PO SCH (08:27)
--- NOTE | 2018-01-17 12:03 | P.PNPSY ---
Subjective Remarks: Patient seen and examined with nurse. Chart reviewed. Case discussed with nursing staff. Case discussed in treatment team. On my examination today, affect is brighter than in previous days. Behavior is more in line with recent baseline. He is telling staff "I love you" and wants to 'fist-bump' staff as a form of greeting. Complains of some vague hallucinations to me. No reported command auditory hallucinations to hurt self/others. No SI or HI. No side effects from medications. Continues to complain of mild headache, we will add Motrin. No physical complaints otherwise. Vital Signs Temp Pulse Resp BP Pulse Ox 01/17/18 06:10 98.1 F 90 16 130/86 99 Labs reviewed. No new labs. Review of Systems All other systems reviewed negative except as stated in HPI Mental Status Examination Appearance: Appropriate Consciousness: Alert Orientation: Person, Place (At least) Motor Activity: Normal gait, Other (No motoric abnormalities noted) Speech: Other (Somewhat hypoverbal) Language: Adequate Fund of Knowledge: Inadequate Attention and Concentration: Other (Fair) Memory: Unremarkable Mood: Appropriate Affect: Appropriate Thought Process & Associations: Intact, Other (Remains somewhat slowed) Thought Content: Other (Poverty of thought) Hallucination Type: Auditory (Vague) Delusion Type: None Suicidal Ideation: No Homicidal Ideation: No Insight: Poor Judgment: Poor Assessment and Plan - Assessment (1) Paranoid schizophrenia Code(s): F20.0 - Paranoid schizophrenia Status: Acute - Plan Plan: Continue current psychiatric medications as ordered. To consider further adjustments to the patient's antipsychotic regimen, although the patient already is on a fairly robust regimen. Add time-limited supply of as needed Motrin for headache. Continue to monitor on the inpatient unit. Continue other medications and care as ordered. Justification for Continued Inpatient Stay: Impairment in reality construction. Risk for decompensation in less restrictive environment. Discharge Planning: [facility] psychiatric hospital referral.
--- NOTE | 2018-01-17 12:20 | P.TTN ---
- Patient Problems Problems: 1. Discharge planning 2. Medication compliance 3. Knowledge deficit 4. Lack of coping skills - Progress Toward Goals Provider Present: Dr. Arthur Vincent (Dr. Vincent is titrating medications, Dr. Vincent may seek state hospitalization, Dr. Vincent intends to take the patient to [facility] court this week to advocate for further stabilization. Patient still appears internally stimulated treatment team will advocate for further stabilization and [facility] court tomorrow with a long-term plan of patient being placed at the [facility] for long-term stabilization. 2017 Dr. Vincent is titrating medications patient needs to remain for further stabilization. January 17, 2018 patient can transfer to [facility] to await [facility] hospitalization as soon as possible.), Dr. Alejandrina uRano (Patient is new to Dr. Ruano, patient will transfer to [facility] to await [facility] hospitalization as soon as possible. January 10, 2018 no change in medications, patient is in need of transfer to [facility] to await [facility] hospitalization. January 14, 2018 no change in medications, Dr. Ruano is advocating for transfer to [facility] to await [facility] hospitalization.) Provider Input: 12/25/2017; patient continues to require stablizing, is less anxious Psychiatric Counselors Present: Timoteo Schofield Jr., [facility] (Timoteo establish contact with the fact team [facility]. Patient will return to semi- independent living upon discharge where he is followed by the fact team. Counselor is working with fact team spring encaser [place] to advocate in court tomorrow for long-term stabilization at the [facility]. Josette reports she will be attendance to advocate for further stabilization. [facility] packet scanned and sent to [facility]. Patient is in need of long- term stabilization and may possibly transfer to [facility] to await being placed at the [facility]. January 07 2018 Counselor will assist with anything that is needed to transfer patient to [facility] to await [facility] hospitalization. January 10, 2018 counselor will establish contact with [facility] to inquire about transfer to [facility] to await state hospitalization. January 14, 2018 patient is inquiring about his disability check and his clothing. Counselor reached out to fact team plush dresser Kaylin who is securing both the patient's funds and this patient's clothing in wait of state hospitalization. January 17, 2018 [facility] is full at this time but they will take this patient when the next bed becomes available to await state hospitalization.) Psychiatric Therapist Input: 12/25/2017; counselor will mireille with appropriate dc placement and outpatient appointments Group Spec/RT/OT/MORALES Present: Gena Walters, JERAD (Patient attends select groups and has difficulty tolerating most activities. January 10, 2018 patient attends select groups and has difficulty tolerating most activities.), Timur Oliveros, OT, CARMEN Ga (Patient attends select groups. 2017 patient attends groups, is mostly appropriate, and easily redirectable. Patient has difficulty tolerating groups, often stays in group for about 10 minutes and must return to the unit due to difficulty coping. January 14, 2018 patient attends select groups and has difficulty tolerating groups at this time. January 17, 2018 patient has not attended groups recently.) Group Spec/RT/OT/MORALES Input: Per OT patient does not attend groups - Documentation Teaching Recipient: Patient
[2018-01-17] MEDS: Acetaminophen 325 MG Tablet PO PRN ×2 (12:56→20:13)
[2018-01-17] MEDS ORDERED: Ibuprofen 600 MG Tablet PO PRN (17:26)
[2018-01-17] MEDS: OLANZapine 15 MG Tablet PO SCH (20:08)
[2018-01-17] MEDS: Divalproex 500 MG DR Tablet PO SCH (20:12)
[2018-01-18] MEDS: Divalproex 250 MG DR Tablet PO SCH (08:50)
[2018-01-18] MEDS: LORazepam 0.5 MG Tablet PO SCH ×3 (08:51→17:14)
--- NOTE | 2018-01-18 16:10 | P.PNPSY ---
Subjective Remarks: Reviewed electronic medical records and discussed case with staff. Follow-up was conducted in the hallway with YULI Hernández present. Patient appears to be in a better mood today. He states that he slept well as had a good appetite. He also reports that he has been participating in groups. Mood is good his affect is euthymic. He denies any complaints today Mental Status Examination Appearance: Appropriate Consciousness: Alert Orientation: Person, Place (At least) Motor Activity: Normal gait, Other (No motoric abnormalities noted) Speech: Other (Somewhat hypoverbal) Language: Adequate Fund of Knowledge: Inadequate Attention and Concentration: Other (Fair) Memory: Unremarkable Mood: Appropriate Affect: Appropriate Thought Process & Associations: Intact, Other (Remains somewhat slowed) Thought Content: Other (Poverty of thought) Hallucination Type: Auditory (Vague) Delusion Type: None Suicidal Ideation: No Suicidal Plan: No Suicidal Intention: No Homicidal Ideation: No Homicidal Plan: No Homicidal Intention: No Insight: Poor Judgment: Poor Assessment and Plan - Assessment (1) Paranoid schizophrenia Code(s): F20.0 - Paranoid schizophrenia Status: Acute - Plan Plan: Patient will be reevaluated by the attending psychiatrist. Continue with current treatment plan. Justification for Continued Inpatient Stay: Moving this patient to a less restrictive environment would likely result in decompensation.
[2018-01-18] MEDS: Divalproex 500 MG DR Tablet PO SCH (20:18)
[2018-01-18] MEDS: Acetaminophen 325 MG Tablet PO PRN (20:18)
[2018-01-18] MEDS: OLANZapine 15 MG Tablet PO SCH (20:18)
[2018-01-19] MEDS: LORazepam 0.5 MG Tablet PO SCH ×3 (08:34→17:37)
[2018-01-19] MEDS: Divalproex 250 MG DR Tablet PO SCH (08:34)
[2018-01-19] MEDS: Acetaminophen 325 MG Tablet PO PRN ×2 (10:51→18:21)
--- NOTE | 2018-01-19 14:22 | P.PNPSY ---
Subjective Remarks: Reviewed electronic medical records and discussed case with staff. Follow-up was conducted in the day room. Patient is pacing and states that he is " suicidal and homicidal." Efforts to redirect her limited as he would come back to the nurse's station. Will increase the Atarax to 50 mg every 6 hours as needed. Nursing staff report that he is eating and sleeping well. Medication compliant. Review of Systems All other systems reviewed negative except as stated in HPI Mental Status Examination Appearance: Appropriate Consciousness: Alert Orientation: Person, Place (At least) Motor Activity: Normal gait, Other (No motoric abnormalities noted) Speech: Other (Somewhat hypoverbal) Language: Adequate Fund of Knowledge: Inadequate Attention and Concentration: Other (Fair) Memory: Unremarkable Mood: Appropriate Affect: Appropriate Thought Process & Associations: Intact, Other (Remains somewhat slowed) Thought Content: Other (Poverty of thought) Hallucination Type: Auditory (Vague) Delusion Type: None Suicidal Ideation: No Suicidal Plan: No Suicidal Intention: No Homicidal Ideation: No Homicidal Plan: No Homicidal Intention: No Insight: Poor Judgment: Poor Assessment and Plan - Assessment (1) Schizophrenia Code(s): F20.9 - Schizophrenia, unspecified Status: Acute - Plan Plan: Patient will be reevaluated by the attending psychiatrist. Continue with current treatment plan. Justification for Continued Inpatient Stay: Moving patient to a less restrictive environment may lead to his decompensation.
[2018-01-19] MEDS: Divalproex 500 MG DR Tablet PO SCH (20:03)
[2018-01-19] MEDS: OLANZapine 15 MG Tablet PO SCH (20:03)
[2018-01-20] MEDS: Divalproex 250 MG DR Tablet PO SCH (08:33)
[2018-01-20] MEDS: LORazepam 0.5 MG Tablet PO SCH ×3 (08:33→17:08)
--- NOTE | 2018-01-20 11:58 | P.PNPSY ---
Subjective Remarks: Patient seen and examined. Chart reviewed. Case discussed with staff. Case discussed with counselor. On my examination today, patient is calm and cooperative. No SI or HI. No hallucinations. No reported medication side effects. No physical complaints. Vital Signs Temp Pulse Resp BP Pulse Ox 01/20/18 06:10 98.4 F 67 17 109/62 98 01/19/18 19:00 18 Intake and Output 01/20/18 01/20/18 01/20/18 06:59 14:59 22:59 Other: Weight 115.6 kg Labs reviewed. No new labs. Review of Systems All other systems reviewed negative except as stated in HPI (Limitation: Poor historian) Mental Status Examination Appearance: Appropriate Consciousness: Alert Orientation: Person, Place (At least) Motor Activity: Other (No abnormal motor movements noted) Speech: Other (Remains a little hypoverbal) Language: Adequate Fund of Knowledge: Inadequate Attention and Concentration: Other (Fair) Memory: Unremarkable Mood: Other (Calm) Affect: Flat Thought Process & Associations: Intact, Other (Remains somewhat slowed) Thought Content: Other (Poverty of thought) Hallucination Type: None Delusion Type: None Suicidal Ideation: No Suicidal Plan: No Suicidal Intention: No Homicidal Ideation: No Homicidal Plan: No Homicidal Intention: No Insight: Poor Judgment: Poor Assessment and Plan - Assessment (1) Paranoid schizophrenia Code(s): F20.0 - Paranoid schizophrenia Status: Acute - Plan Plan: Continue current psychotropic medications as ordered. Continue to monitor on the inpatient unit. Continue other medications and care as ordered. Justification for Continued Inpatient Stay: High risk for decompensation in less restrictive environment. Discharge Planning: Counselor indicates that the patient is #[facility] the [facility] list.
[2018-01-20] MEDS: Acetaminophen 325 MG Tablet PO PRN ×2 (14:43→21:50)
[2018-01-20] MEDS: OLANZapine 15 MG Tablet PO SCH (20:17)
[2018-01-20] MEDS: Divalproex 500 MG DR Tablet PO SCH (20:20)
[2018-01-21 06:10] VITALS: RESP 18
[2018-01-21] MEDS: Divalproex 250 MG DR Tablet PO SCH (08:40)
[2018-01-21] MEDS: LORazepam 0.5 MG Tablet PO SCH ×3 (08:41→17:06)
[2018-01-21] MEDS: Acetaminophen 325 MG Tablet PO PRN (13:19)
--- NOTE | 2018-01-21 14:16 | P.PNPSY ---
Subjective Remarks: Reviewed electronic medical record and discussed case with staff. Follow up was conducted in the hallway as patient continues to pace. He reports that he " feels good" today. States that he enjoys attending groups, most especially arts and crafts. He advises "the atarax is working real good". He reports a good appetite and that he has been sleeping well. His mood is good, his affect is flat. Mental Status Examination Appearance: Appropriate Consciousness: Alert Orientation: Person, Place (At least) Motor Activity: Other (No abnormal motor movements noted) Speech: Other (Remains a little hypoverbal) Language: Adequate Fund of Knowledge: Inadequate Attention and Concentration: Other (Fair) Memory: Unremarkable Mood: Other (Calm) Affect: Flat Thought Process & Associations: Intact, Other (Remains somewhat slowed) Thought Content: Other (Poverty of thought) Hallucination Type: None Delusion Type: None Suicidal Ideation: No Suicidal Plan: No Suicidal Intention: No Homicidal Ideation: No Homicidal Plan: No Homicidal Intention: No Insight: Poor Judgment: Poor Assessment and Plan - Assessment (1) Paranoid schizophrenia Code(s): F20.0 - Paranoid schizophrenia Status: Acute - Plan Plan: Patient is awaiting placement in a state facility. Justification for Continued Inpatient Stay: Moving this patient to a less restrictive environment would result in a decompensation.
[2018-01-21] MEDS: Divalproex 500 MG DR Tablet PO SCH (20:22)
[2018-01-21] MEDS: OLANZapine 15 MG Tablet PO SCH (20:23)
[2018-01-22] MEDS: LORazepam 0.5 MG Tablet PO SCH ×3 (09:00→17:53)
[2018-01-22] MEDS: Divalproex 250 MG DR Tablet PO SCH (09:03)
[2018-01-22] MEDS ORDERED: Divalproex 500 MG DR Tablet PO SCH ×2 (14:09→21:00)
--- NOTE | 2018-01-22 14:13 | P.PNPSY ---
Subjective Remarks: Patient seen in day room with nurse Maribel, chart reviewed, patient compliant medication, patient Depakote blood level drawn 02/14 is 54 on 1000 mg twice daily. Will increase to 1000 mg a.m. 1250 mg p.m. check Depakote blood level in about 4 days otherwise patient calm cooperative still remains intense with poor boundaries. Continues to acknowledge vague auditory hallucinations that have been with him for many years. He is vague denies suicidality today. I discussed with him the possibility of alternative placement as opposed to the state. We will talk with the FACT team to see if we can find an appropriate placement of the community for this man Review of Systems All other systems reviewed negative except as stated in HPI Mental Status Examination Appearance: Appropriate Consciousness: Alert Orientation: Person, Place (At least) Motor Activity: Other (No abnormal motor movements noted) Speech: Other (Remains a little hypoverbal) Language: Adequate Fund of Knowledge: Inadequate Attention and Concentration: Other (Fair) Memory: Unremarkable Mood: Other (Calm) Affect: Flat Thought Process & Associations: Intact, Other (Remains somewhat slowed) Thought Content: Other (Poverty of thought) Hallucination Type: Auditory (Vague) Delusion Type: None Suicidal Ideation: No Suicidal Plan: No Suicidal Intention: No Homicidal Ideation: No Homicidal Plan: No Homicidal Intention: No Insight: Poor Judgment: Poor Assessment and Plan - Assessment (1) Paranoid schizophrenia Code(s): F20.0 - Paranoid schizophrenia Status: Acute - Plan Plan: Patient remained somewhat psychotic with vague voices, somewhat vague suicidal, the low intent or plan. She medication adjustment above. We will discuss with fact the possibility of perhaps a placement in the community Justification for Continued Inpatient Stay: At this time patient would decompensate a place to a lower level of care Discharge Planning: To be determined with consultation affecting continue to await word from state hospital referral
[2018-01-22] MEDS: OLANZapine 15 MG Tablet PO SCH (20:07)
[2018-01-22] MEDS ORDERED: Divalproex 250 MG DR Tablet PO SCH (21:00)
[2018-01-22] MEDS: Acetaminophen 325 MG Tablet PO PRN (21:06)
[2018-01-23 05:58] VITALS: BP 133/80; PULSE 72; TEMP 97.4; O2SAT 98
--- NOTE | 2018-01-23 07:50 | P.TTN ---
- Patient Problems Problems: 1. Discharge planning 2. Medication compliance 3. Knowledge deficit 4. Lack of coping skills - Progress Toward Goals Provider Present: Dr. Arthur Vincent (Dr. Vincent is titrating medications, Dr. Vincent may seek state hospitalization, Dr. Vincent intends to take the patient to [facility] court this week to advocate for further stabilization. Patient still appears internally stimulated treatment team will advocate for further stabilization and [facility] court tomorrow with a long-term plan of patient being placed at the [facility] for long-term stabilization. 2017 Dr. Vincent is titrating medications patient needs to remain for further stabilization. January 17, 2018 patient [address] transfer to [facility] to await [facility] hospitalization as soon as possible. January 23, 2018, Dr. Vincent will meet with the patient to discuss the possibility of diverting the patient from the [facility].), Dr. Alejandrina Ruano (Patient is new to Dr. Ruano, patient will transfer to [facility] to await [facility] hospitalization as soon as possible. January 10, 2018 no change in medications, patient is in need of transfer to [facility] to await [facility] hospitalization. January 14, 2018 no change in medications, Dr. Ruano is advocating for transfer to [facility] to await [facility] hospitalization.) Provider Input: 12/25/2017; patient continues to require stablizing, is less anxious Psychiatric Counselors Present: Timoteo Schofield Jr., [facility] (Timoteo establish contact with the fact team [facility]. Patient will return to semi- independent living upon discharge where he is followed by the fact team. Counselor is working with fact team case consultant Josette to advocate in court tomorrow for long-term stabilization at the [facility]. Josette reports she will be attendance to advocate for further stabilization. [facility] packet scanned and sent to [facility]. Patient is in need of long- term stabilization and may possibly transfer to [facility] to await being placed at the [facility]. January 07 2018 Counselor will assist with anything that is needed to transfer patient to [facility] to await [facility] hospitalization. January 10, 2018 counselor will establish contact with [facility] to inquire about transfer to [facility] to await [facility] hospitalization. January 14, 2018 patient is inquiring about his disability check and his clothing. Counselor reached out to fact team balance staff inspector Kaylin who is securing both the patient's funds and this patient's clothing in wait of state hospitalization. January 17, 2018 [facility] act is full at this time but they will take this patient when the next bed becomes available to await state hospitalization. January 23, 2018 counselor met with the patient, the fact team balance staff inspector Kaylin, and Jeri Mckeon peer client support manager to discuss diverting the patient from [facility]. Patient reports he would like to return to his residence where he is domiciled in the community on [address] in [place] as soon as possible.) Psychiatric Therapist Input: 12/25/2017; counselor will mireille with appropriate dc placement and outpatient appointments Group Spec/RT/OT/MORALES Present: JERAD Burris (Patient attends select groups and has difficulty tolerating most activities. January 10, 2018 patient attends select groups and has difficulty tolerating most activities. January patient does not attend groups at this time.), Timur Oliveros, OT, CARMEN Ga (Patient attends select groups. 2017 patient attends groups, is mostly appropriate, and easily redirectable. Patient has difficulty tolerating groups, often stays in group for about 10 minutes and must return to the unit due to difficulty coping. January 14, 2018 patient attends select groups and has difficulty tolerating groups at this time. January 17, 2018 patient has not attended groups recently.) Group Spec/RT/OT/MORALES Input: Per OT patient does not attend groups - Documentation Teaching Recipient: Patient
[2018-01-23] MEDS: Divalproex 250 MG DR Tablet PO SCH (08:27)
[2018-01-23] MEDS: LORazepam 0.5 MG Tablet PO SCH ×2 (08:29→12:14)
--- NOTE | 2018-01-23 08:59 | P.DSPSY ---
Psychiatry Discharge Summary Inpatient Psychiatric care?: Yes Advance Directives: No Mental Health Advance Directive: No Health Care Proxy: No - Admission Admission Date: December 11, 2017 14:00 - Admission Diagnosis (1) Paranoid schizophrenia Code(s): F20.0 - Paranoid schizophrenia Brief History: The patient is a 37-year-old man, homeless, single, supported by [facility], with an extensive psychiatric history of schizoaffective disorder, who is well- known to the department, multiple psychiatric admissions, last hospitalization in November 2017 under the care of Dr. Dominguez, frequent ER utilizer, poor compliant with medications, he is on olanzapine 10 mg twice daily, Invega Ban 234, Depakote 500 mg twice daily, his Depakote level today is 62, outpatient care with , member of the fact team, no significant medical history, who presents today off his medication for 4 days, presents emergency department under [facility] for psychiatric evaluation. Patient flagged down [employer] police coxswain , telling him that he was suicidal. His plan is to hang himself. He states that his depression has gotten worse over the last 3-4 days. Chart review and discussed with nursing staff. Patient is in room J08 of the emergency room. On my psychiatric evaluation today the patient is quite psychomotor retarded, disheveled, malodorous. He reports that he has no reason to live for, he has been feeling quite depressed in the last weeks, he is not taking his medications , has been homeless, not eating, losing weight, sleeping poorly, feeling hopeless, helpless, worthless, without any motivation to do anything. The patient also reports that he has been having persistent suicidal ideation with a plan of jumping in front of a car was jumping off a bridge. He also reports that he has been hearing voices telling him to kill himself. Is oriented 3, he still process is goal-directed, logical but somewhat delayed. He denies the use of illegal drugs and alcohol. PPHx: schizoaffective disorder, who is well-known to the department, multiple psychiatric admissions, last hospitalization in November 2017 under the care of Dr. Dominguez, frequent ER utilizer, poor compliant with medications, he is on olanzapine 10 mg twice daily, Invega Ban 234, Depakote 500 mg twice daily, his Depakote level today is 62, outpatient care with , member of the fact team, PMHx: Patient does not have any previous medical history Substance Hx: He denies the use of illegal drugs and alcohol Family Hx: The patient was born and raised in [facility], he is homeless, unemployed, poor family and social support, supported by [facility], his highest level of education is 11th grade . Tobacco Use In Past 30 Days: Yes How Often Do You Have a Drink Containing Alcohol: Never Hospital Course: Patient's hospital course reflective of the chronicity severity of patient's mental illness. It also reflected his behavior that reflects his multiple hospitalizations and his dependency on drugs for any type of symptoms. Though he was easily redirectable. He showed no significant behavioral problems. He had very little social interaction. He did not he encouragement and cues for his ADLs. We have been in communication with the FACT team. It appears patient is reached his baseline. Today he does denies suicidality and does deny voices though it is my opinion that there are intermittent auditory hallucinations. He is compliant with his medications. He showing no significant side effects or issues with his medications. Thus I feel he is reached maximum benefit of this hospitalization. Fact team agrees. We will discharge patient to affect team today with Rx times 1 month to follow-up with psychiatry services through the FACT team - Discharge Discharge Date: 01/23/18 - Discharge Diagnosis (1) Paranoid schizophrenia Diagnosis: Principal Code(s): F20.0 - Paranoid schizophrenia Status: Acute Discharge Disposition: Home - Discharge Instructions Discharge Diet: Regular Diet Activities You Can Perform: Regular- No Restrictions - Discharge Time > 30 minutes Mental Status Examination Appearance: Appropriate Consciousness: Alert Orientation: Person, Place (At least) Motor Activity: Other (No abnormal motor movements noted) Speech: Other (Remains a little hypoverbal) Language: Adequate Fund of Knowledge: Inadequate Attention and Concentration: Other (Fair) Memory: Unremarkable Mood: Other (Calm) Affect: Flat Thought Process & Associations: Intact, Other (Remains somewhat slowed) Thought Content: Other (Poverty of thought) Hallucination Type: Auditory (Vague) Delusion Type: None Suicidal Ideation: No Suicidal Plan: No Suicidal Intention: No Homicidal Ideation: No Homicidal Plan: No Homicidal Intention: No Insight: Poor Judgment: Poor Discharge/Advance Care Plan - Results Vital Signs: Last Vital Signs Temp 97.4 F L 01/23/18 05:57 Pulse 72 01/23/18 05:57 Resp 18 01/23/18 05:57 BP 133/80 01/23/18 05:57 Pulse Ox 98 01/23/18 05:57 Lab Results: Laboratory Results TSH 0.982 uIU/mL (0.358-3.740) 12/10/17 19:15 Valproic Acid 54 mcg/mL (50-100) 01/14/18 10:17 Summary of Procedures: None done Imaging: ITS Impressions Chest X-Ray 12/17/17 00:00 CONCLUSION: No evidence of acute cardiopulmonary disease. Pending Results: None - Medications Number of antipsychotic medications at discharge: 1 - Discharge Care Plan Goals to Promote Your Health: * To prevent worsening of your condition and complications * To maintain your health at the optimal level Directions to Meet Your Goals: Take your medications as prescribed Follow your dietary instruction Follow activity as directed Keep your appointments as scheduled Take your immunizations and boosters as scheduled If your symptoms worsen call your PCP, if no PCP go to Urgent Care Center or Emergency Room For 08/10 questions related to your inpatient stay or results of tests pending at discharge, please contact Dr. Tor Vincent MD at Smoking is Dangerous to Your Health. Avoid second hand smoking
[2018-01-23] MEDS: Acetaminophen 325 MG Tablet PO PRN (10:57)
== END 2018-01-23 13:00 | disposition home or self-care (01) ==
LOC: NEDAMB 18:52 → NEDA 12-11 14:00 → NEPJ 12-11 14:03 → H270 12-11 14:29
PROVIDERS: ADMIT Psychiatry & Neurology Psychiatry; ATTEND Psychiatry & Neurology Psychiatry